=== PATIENT | male | born 1935 | race Caucasian/White ===

== ENCOUNTER → 2016-05-01 | Outpatient (CLI) | payer OTHER, BC ==
[~2016-05-01] VITALS: Ht 185.4 cm; Wt 95.0 kg
[~2016-05-01] MED LIST: ASPI1CHW12; ATOR-54 PO; BUPR150T6 PO; CARV6.252 PO; LEVO112T4 PO; LISI40TA PO; NRN/600 PO; PANT40TA PO; TAMS0.4C38 PO; VITA400C15 PO
[2016-05-01 12:07] VITALS: BP 135/82; PULSE 72; Ht 185.4 cm; Wt 95.0 kg
== END | disposition home or self-care (01) ==
LOC: C.NEUR 11:19
PROVIDERS: ATTEND Internal Medicine Pulmonary Disease
DX: G47.33 Obstructive sleep apnea (adult) (pediatric) (principal); G47.19 Other hypersomnia; G62.9 Polyneuropathy, unspecified; R41.3 Other amnesia; K21.9 Gastro-esophageal reflux disease without esophagitis; C34.90 Malignant neoplasm of unspecified part of unspecified bronchus or lung; N40.0 Benign prostatic hyperplasia without lower urinary tract symptoms; I42.9 Cardiomyopathy, unspecified; J44.9 Chronic obstructive pulmonary disease, unspecified; F32.9 Major depressive disorder, single episode, unspecified; E03.9 Hypothyroidism, unspecified; Z79.82 Long term (current) use of aspirin; Z79.899 Other long term (current) drug therapy

== ENCOUNTER → 2016-06-12 | Outpatient (CLI) | payer OTHER, BC ==
--- NOTE | 2016-06-13 05:36 | PAP/PSG TECHNICIAN REPORT ---
[facility] Senior Interaction Designer Polysomnogram Report Study name: None Report date: 06/13/2016 Study date: 06/12/2016 Referring Physician: Mike Cisse M.D. Name: EMETERIO SHANIQUE Ryan Interpreting Physician: Mike Cisse M.D. Date of : 1935 Senior Interaction Designer: BENTLEY Arzate. Sex: Male Age: 80 StudyType: PSG PAP Weight: 209 lbs Height: 80 years, Height 6' 1" Neck Circum:18inches BMI: 27.57 Medications: ASA 81mg, Atorvastatin 20mg, Carvedilol 6.25mg, Duloxetine HCl 30mg, Finasteride 5mg, Gabapentin 600mg, Levothyroxine 112mcg, Lisinopril 40mg, Pantoprazole 40mg, Tamsulosin HCl 0.4mg, Vit E 400units Patient History Study started on room air with Bipap +9/5. He has IRVING severe IRVING and was previosly on Bipap but had some difficulty with his interface and that led to his stopping the use of Bipap. [facility] is [facility] pressure settings. He has a new full face mask that he received from [employer] that he'll be using tonight. He states that he likes this mask. His neck circ=18inches. Parameters Monitored NPSG: E1-M2, E2-M1, Fp1-M2, Fp2-M1, F3-M2, F4-M2, F4-M1, C3-M2, C4-M2, C4-M1, O1-M2, O2-M2, O2-M1, T3-M2, T4-M1, P3-M2, P4-M1, CHIN1, CHIN2, HR, EKG, Legs, PFLOW, SNOR, FLOW, CFLOW, Tidal Volume, THOR, ABDO, SpO2, PLTH, CPRESS, ETCO2 Wave, ETCO2, pH Sleep Architecture Sleep Stages Time at Lights Off 9:10:32 PM STAGES Time (min.) TST (%) Time at Lights On 5:12:32 AM Wake 103.5 -- Total Recording Time (TRT) 482.50 min. N1 35.0 9 Total Sleep Period (TSP) 474.0 min. N2 246.0 65 Total Sleep Time (TST) 378.5min. N3 48.5 13 Awake Time 104.0 min. REM 49.0 13 Wake after Sleep Onset 96.5 min. Sleep Efficiency (SE) 79 % Sleep Onset Latency (MARISA) 7.0 min. Number of Stage 1 Shifts None Awakenings 25 Stage Changes 125 Number of REM periods 2 REM 49.0 13 REM Latency 411.5 min. NREM 329.5 87 Body Position Analysis Supine Right Left Side Prone Vertical Total Sleep Time (min.) 441.9 22.2 0.0 22.16 0.0 0.0 Total Sleep Time (%) 94% 6% 0% 6 0% N/A% Total Sleep Time REM (min.) 49.0 0.0 0.0 None 0.0 0.0 Total Sleep Time NREM (min.) 307.3 22.2 0.0 None 0.0 0.0 Intermittent Wake (min.) 85.6 17.9 0.0 None 0.0 0.0 Total Sleep Period (%) 92% None None None None None Arousals Myoclonus (PLM) * Events Count Index Events Count Index Spontaneous 17 3 Events Awake (PLMW) 132 76.5 Respiratory 13 3.0 Events Asleep w/ Arousal (PLMA) 18 2.9 PLM 17 3 Events Asleep w/o Arousal (PLMS) 239 37.9 Snoring 2 0 Total Asleep 257 40.7 Total 48 8 Total 389 48 Respiratory Analysis * CA OA MA CH H RERA Total Count 10 36 8 0 36 0 90 Index 1.6 5.7 1.3 0 5.7 0 14.3 Mean Duration 14.0 30.3 40.2 0.00 30.7 0.0 29.5 Longest Duration 18.9 56.3 60.2 0.00 60.2 0.0 67.8 Respiratory Event Summary Total Supine ~Supine Right Left Prone REM NREM Apneas Count 54 54 0 0 N/A N/A 4 50 Index 8.6 9 0 0.0 N/A N/A 5 9 Hypopneas (4% Desat) Count 36 36 0 0 N/A N/A 1 35 Index 5.7 6.1 0 0.0 N/A N/A 1.2 6.4 Apneas & All Hypopneas Count 90 90 0 0 N/A N/A 5 85 Index 14.3 15 0 0 N/A N/A 6.1 15.5 Respiratory Events (Quilt Stuffer+All Hyp+RERA) Count 90 90 0 0 N/A N/A 5 85 Index 14.3 15 0 0.0 N/A N/A 6.1 15.5 Respiratory Related Arousal Count 13 90 0 0 N/A N/A 0 19 Index 3.0 3 0 0 N/A N/A 0 3 Snoring Analysis Supine Right Left Prone REM NREM Total Snore duration 2.5 min Snores count 91 1 N/A N/A 1 91 92 Snore mean duration 1.6 Sec Snores index 15 3 N/A N/A 1.2 16.6 14.6 TST with snoring (%) 0.7% Desaturation Event Summary: Minimum %SpO2 Event Count Mean/Min/Max Duration(sec.) Desaturation Index % Time In Bed > 90 68 37.8 / 5.3 / 59.8 13.2 64.8 86 - 90 32 29.4 / 8.5 / 58.3 12.8 31.6 81 - 85 2 26.6 / 26.0 / 27.3 8.2 3.1 76 - 80 0 N/A 0.0 0.4 71 - 75 0 N/A 0.0 0.0 66 - 70 0 N/A 0.0 0.0 61 - 65 0 N/A 0.0 0.0 56 - 60 0 N/A 0.0 0.0 51 - 55 0 N/A 0.0 0.0 < 50 0 N/A 0.0 0.1 Total REM NREM Awake <50% 0.3 min. 0.0 min. 0.0 min. 0.3 min. 51 - 60% 0.0 min. 0.0 min. 0.0 min. 0.0 min. 61 - 70% 0.0 min. 0.0 min. 0.0 min. 0.0 min. 71 - 80% 2.0 min. 0.0 min. 1.6 min. 0.4 min. 81 - 90% 165.1 min. 0.6 min. 112.1 min. 52.3 min. 91 - 100% 308.5 min. 48.3 min. 212.8 min. 47.4 min. Average 92 94 92 91 Minimum SpO2 35 89 77 35 Desaturation Event Index 11.6 4.9 14.6 5.8 # Desat. Events below 89% 58 1 50 7 Time(%) with Saturation below 89% 17.4 0.0 14.0 3.4 Time(min.) with Saturation below 89% 82.7 0.0 66.4 16.3 Time (mins) REM (mins) NREM (mins) % of TST SpO2 Below 90% 67 3 N64 27.4 SpO2 Below 88% 30 0 0 7 Heart Rate Analysis Min (bpm) Max (bpm) Average (bpm) Awake 48 141 67 NREM 57 84 67 REM 57 73 66 Overall 57 84 66 Supplemental O2 Values Minimum O2 level: None Value Start Time End Time Senior Interaction Designer Comments Mr. Thompson slept in the supine position. No cardiac arrhythmia noted. PLM's were noted. No bruxism noted. PAP initiated at an IPAP of +9 CMH2O and an EPAP of +5 CMH2O up-titrated to a level of: IPAP +16 CMH2O, EPAP + 12 CMH20. A large Hazel full face mask by [employer] (his new mask from [employer]), was used during the first part of the study but was then switched to a large Mirage Quattro full face mask by [employer]. The Hazel was hurting his face. He did not use the restroom during the night. He stated that he slept well. The final report will be interpreted and signed by a sleep physician. The completed physician report will then be placed in the patient medical record. Therapy Event: Therapy (cm H20) 11/27 12/28 01/29 03/01 05/12 1410 15 1612 Total Time at Pressure (min.) 22.2 53.1 11.0 16.5 22.3 41.7 27.3 288.0 TST at Pressure (min.) 15.2 51.1 10.0 15.0 21.3 41.2 23.8 201.0 # Periods 1 1 1 1 1 1 1 1 Sleep Onset (min.) 7.0 0.0 0.0 0.0 0.0 0.0 0.0 0.0 REM Onset (min.) N/A N/A N/A N/A N/A N/A N/A 224.5 Sleep Efficiency % 68 96 90 90 95 98 87 69 Wakefulness (%) 31.5 3.8 9.1 9.1 4.5 1.2 12.8 30.2 Wakefulness (min.) 7.0 2.0 1.0 1.5 1.0 0.5 3.5 87.0 NREM 1 (%) 6.8 6.6 4.6 15.2 9.1 7.1 20.1 5.7 NREM 1 (min.) 1.5 3.5 0.5 2.5 2.0 3.0 5.5 16.5 NREM 2 (%) 61.7 41.6 86.3 75.7 86.4 54.5 67.0 44.4 NREM 2 (min.) 13.7 22.1 9.5 12.5 19.2 22.7 18.3 128.0 NREM 3 (%) 0.0 48.0 0.0 0.0 0.0 37.2 0.0 2.6 NREM 3 (min.) 0.0 25.5 0.0 0.0 0.0 15.5 0.0 7.5 REM (%) 0.0 0.0 0.0 0.0 0.0 0.0 0.0 17.0 REM (min.) 0.0 0.0 0.0 0.0 0.0 0.0 0.0 49.0 # Arousals 3 8 0 4 6 6 6 15 Arousal Index 11.8 9.4 0.0 16.0 16.9 8.7 15.1 4.5 # Snore 19 25 7 16 10 4 3 8 Snore Index 75.0 29.3 42.2 64.0 28.2 5.8 7.6 2.4 AHI 59.2 12.9 42.2 48.0 45.2 10.2 30.3 3.0 AHI Supine 59.2 12.9 42.2 48.0 45.2 10.2 30.3 3.4 AHI Non-Supine N/A N/A N/A N/A N/A N/A N/A 0.0 NREM AHI 59.2 12.9 42.2 48.0 45.2 10.2 30.3 2.0 REM AHI N/A N/A N/A N/A N/A N/A N/A 6.1 RDI 59.2 12.9 42.2 48.0 45.2 10.2 30.3 3.0 # Obstructive 4 6 4 4 7 3 8 0 # Central Ap 5 0 0 0 0 0 0 5 # Mixed 0 1 1 1 4 0 1 0 # Hypopneas 6 4 2 7 5 4 3 5 RERAS 0 0 0 0 0 0 0 0 Total Respiratory Events 15 11 7 12 16 7 12 10 Time Below SpO2 89.00% (min.) 12.2 20.1 1.9 2.1 2.2 0.0 0.8 27.0 Mean NREM SpO2 (%) 86 89 92 93 93 94 93 92 Mean REM SpO2 (%) N/A N/A N/A N/A N/A N/A N/A 94 Mean Sleep SpO2 (%) 86 89 92 93 93 94 93 93 Min NREM SpO2 (%) 77 77 78 78 81 89 84 81 Min REM SpO2 (%) N/A N/A N/A N/A N/A N/A N/A 89 Position Supine (min.) 15.2 51.1 10.0 15.0 21.3 41.2 23.8 178.8 Position Non-supine (min.) 0.0 0.0 0.0 0.0 0.0 0.0 0.0 22.2 LM Index Sleep 7.9 28.2 138.7 128.0 149.6 110.6 42.9 9.0 LM Index NREM 7.9 28.2 138.7 128.0 149.6 110.6 42.9 11.5 LM Index REM N/A N/A N/A N/A N/A N/A N/A 1.2 Mean Heart Rate (bpm) 72 73 70 70 68 65 66 64 Min Heart Rate (bpm) 67 67 64 64 62 60 61 57
--- NOTE | 2016-06-14 17:14 | POLYSOMNOGRAPH REPORT ---
CLINICAL DATA: An 80-year-old male with BMI of 27.57, returned for a BiPAP titration study. He has severe sleep apnea and was previously on BiPAP through his DME provider, [facility]. He had difficulty with his interface and stopped using his BiPAP. He has been having some cognitive difficulty and sleep issues and would like to be started back on BiPAP. SLEEP ARCHITECTURE: Total sleep period was 474 minutes. Total sleep time was 378.5 minutes divided between 329.5 minutes of non-REM sleep and 49 minutes of REM sleep. Sleep onset latency was 7 minutes. REM latency was delayed at 411.5 minutes. Sleep efficiency was 79%. Wake after sleep onset was 96.5 minutes. Sleep consisted of stage N1 9%, N2 65%, N3 13%, and REM 13%. AROUSAL DATA: Forty eight arousals were recorded for an index of 8 per hour. PERIODIC LIMB MOVEMENTS DATA: Moderately elevated limb movements of sleep were noted. There were 257 limb movements during sleep noted for an index of 40.7 per hour with arousal index of 2.9 per hour. RESPIRATORY DATA: The AHI was 14.3. There were 10 central, 36 obstructive, and 8 mixed apneic episodes. The longest duration of apnea was 60.2 seconds. There were 36 hypopneic episodes. The mean duration of hypopnea was 30.7 seconds. OXIMETRY DATA: Nocturnal hypoxemia was seen. Oxygen andrea was 77% during non-REM sleep. Mean saturation was 92%. Time below 88% was 30 minutes. ELECTROCARDIOGRAM: Heart ranged from 57-84 beats per minute. No arrhythmias were noted. PULP DRIER'S COMMENTS: The patient slept supine. BiPAP was started at a pressure of 9/5 and was titrated up to his optimal level of 16/12 using a large Hazel full facemask by [employer] initially, but then switched to a large Mirage Quattro full facemask by [employer]. At this final pressure setting, the patient slept for 201 minutes with an AHI of 3. IMPRESSION: Severe sleep apnea/hypopnea corrected with BiPAP, inspiratory pressure 16 and expiratory pressure 12 using a large Quattro full facemask by [employer]. RECOMMENDATIONS: The patient will be seen back in the clinic to restart BiPAP therapy at the above-noted settings. [facility]
== END | disposition home or self-care (01) ==
LOC: C.NEUR 20:00
PROVIDERS: ATTEND Internal Medicine Pulmonary Disease
DX: G47.19 Other hypersomnia (principal); R41.3 Other amnesia; G47.33 Obstructive sleep apnea (adult) (pediatric); G62.9 Polyneuropathy, unspecified

== ENCOUNTER → 2016-06-19 | Outpatient (CLI) | payer OTHER, BC ==
[~2016-06-19] VITALS: Ht 185.4 cm; Wt 94.0 kg
[2016-06-19 14:24] VITALS: BP 92/60; PULSE 88; Ht 185.4 cm; Wt 94.0 kg
== END | disposition home or self-care (01) ==
LOC: C.NEUR 12:48
PROVIDERS: ATTEND Internal Medicine Pulmonary Disease
DX: G47.33 Obstructive sleep apnea (adult) (pediatric) (principal); G62.9 Polyneuropathy, unspecified; R19.7 Diarrhea, unspecified

== ENCOUNTER → 2016-07-12 | Outpatient (CLI) | payer OTHER, BC ==
[~2016-07-12] MED LIST changes: -ASPI1CHW12; +ASPI1CHW12 PO; +VITA1CRE; +VITACAP37 PO
== END | disposition home or self-care (01) ==
LOC: C.LABSPEC 16:57
PROVIDERS: ATTEND Nurse Practitioner Adult Health
DX: R35.0 Frequency of micturition (principal)

== ENCOUNTER → 2016-09-04 | Outpatient (CLI) | payer OTHER, BC ==
[2016-09-04 10:25] LABS: BASO % 1.6 %; EOS % 4.1 %; HEMATOCRIT 40.8 % (42-52); IG% 0.2 %; LYMPH % 13.1 %; MEAN CELL VOLUME 96.5 fL (80-100); MEAN CORPUSCULAR HEMOGLOBIN 31.9 pg (25-34); MEAN CORPUSCULAR HGB CONC 33.1 g/dl (32-36); MEAN PLATELET VOLUME 12.2 fL (7.4-10.4); MONO % 11.5 %; NEUT % 69.5 %; PLATELET COUNT 142 K/uL (130-400); RED BLOOD COUNT 4.23 M/uL (4.7-6.1); WHITE BLOOD COUNT 5.56 K/uL (4.8-10.8)
[2016-09-04 10:26] LABS: BASO ABS # 0.09 K/uL (0-0.2); COMPLETE YES; LYMPH ABS # 0.73 K/uL (1.2-3.4)
[2016-09-04 11:05] LABS: ALT/SGPT 16 U/L (12-78); AST/SGOT 10 U/L (15-37); BLOOD UREA NITROGEN 18 mg/dl (7-18); BUN/CREATININE RATIO 16.4 (10-20); CALCIUM 8.6 mg/dl (8.5-10.1); CARBON DIOXIDE 30 mmol/L (21-32); CHLORIDE 105 mmol/L (98-107); GLUCOSE 105 mg/dl (70-99); SODIUM 141 mmol/L (136-145)
[2016-09-04 11:08] LABS: ALB/GLOB RATIO 1.1 (0.9-2); ALKALINE PHOSPHATASE 90 U/L (45-117)
[2016-09-04 12:42] LABS: URINE APPEARANCE CLEAR (CLEAR); URINE BILIRUBIN NEG (NEG); URINE COLOR YELLOW; URINE EPITHELIAL CELL AUTO 0-5 /lpf (0-5); URINE NITRITE NEG (NEG); URINE SPECIFIC GRAVITY 1.015 (1.000-1.030); UROBILINOGEN NEG (NEG)
[2016-09-04 12:51] LABS: MANUAL MICROSCOPIC REQUIRED? NO; REVIEW REQ? NO
== END | disposition home or self-care (01) ==
LOC: C.LAB1850 09:19
PROVIDERS: ATTEND Physician Assistant Medical
DX: R10.32 Left lower quadrant pain (principal)

== ENCOUNTER → 2016-09-07 | Outpatient (CLI) | payer OTHER, BC | END | disposition home or self-care (01) | LOC: C.LAB1850 10:34 | PROVIDERS: ATTEND Physician Assistant Medical | DX: E03.9 Hypothyroidism, unspecified (principal); R63.4 Abnormal weight loss ==

== ENCOUNTER → 2016-09-14 | Outpatient (CLI) | payer OTHER, BC ==
[2016-09-15 10:43] LABS: URINE APPEARANCE CLEAR (CLEAR); URINE BILIRUBIN NEG (NEG); URINE COLOR YELLOW; URINE EPITHELIAL CELL AUTO 0-5 /lpf (0-5); URINE NITRITE NEG (NEG); URINE SPECIFIC GRAVITY > 1.045 (1.000-1.030); UROBILINOGEN NEG (NEG)
[2016-09-15 10:46] LABS: MANUAL MICROSCOPIC REQUIRED? NO; REVIEW REQ? NO
== END | disposition home or self-care (01) ==
LOC: C.LAB 09:48
PROVIDERS: ATTEND Physician Assistant Medical
DX: R32 Unspecified urinary incontinence (principal)

== ENCOUNTER → 2016-09-14 | Outpatient (CLI) | payer OTHER, BC ==
[~2016-09-14] MED LIST changes: +OPTIRAY 320 IV PRN
--- NOTE | 2016-09-14 16:52 | DIAGNOSTIC IMAGING REPORT ---
CT brain HEAD COMBO CLINICAL HISTORY: R29.6 mental status change TECHNIQUE: Transaxial acquisition pre and postcontrast administration. COMPARISON STUDY: 09/27/2013 FINDINGS: Atrophy. Chronic small vessel change. No evidence for abnormal postcontrast enhancement. IMPRESSION: Atrophy. Chronic small vessel change. No acute process. Electronically signed by: Darrius Brown M.D. 09/14/2016 4:50 PM Dictated Date/Time: 09/14/2016 4:49 PM
== END | disposition home or self-care (01) ==
LOC: C.CTS 16:26
PROVIDERS: ATTEND Physician Assistant Medical
DX: R29.6 Repeated falls (principal); R32 Unspecified urinary incontinence

== ENCOUNTER 2017-01-18 02:21 | Emergency (ER) | payer OTHER, BC ==
[~2017-01-18] VITALS: Ht 185.4 cm; Wt 90.6 kg
[~2017-01-18 02:21] MED LIST changes: -OPTIRAY 320 IV PRN; -VITA1CRE; -VITACAP37 PO
[2017-01-18 02:26] VITALS: TEMP 36.6; Ht 185.4 cm; Wt 90.6 kg
[2017-01-18] MEDS ORDERED: SODIUM CHLORIDE 0.9% 500ML 500 ML IV STA (02:35)
[2017-01-18] MEDS ORDERED: FENTANYL CITRATE INJ 50 MCG/1 ML 2 ML VIAL IV STA (02:37)
[2017-01-18] MEDS ORDERED: OPTIRAY 320 IV PRN (02:45)
[2017-01-18 02:50] LABS: BASO % 0.7 %; BASO ABS # 0.05 K/uL (0-0.2); EOS % 3.8 %; HEMATOCRIT 37.6 % (42-52); IG% 0.1 %; LYMPH % 17.2 %; LYMPH ABS # 1.22 K/uL (1.2-3.4); MEAN CELL VOLUME 94.7 fL (80-100); MEAN CORPUSCULAR HEMOGLOBIN 31.7 pg (25-34); MEAN CORPUSCULAR HGB CONC 33.5 g/dl (32-36); MEAN PLATELET VOLUME 12.1 fL (7.4-10.4); MONO % 10.5 %; NEUT % 67.7 %; PLATELET COUNT 156 K/uL (130-400); RED BLOOD COUNT 3.97 M/uL (4.7-6.1); WHITE BLOOD COUNT 7.11 K/uL (4.8-10.8)
--- NOTE | 2017-01-18 02:50 | EMERGENCY ROOM VISIT NOTE ---
History Report prepared by Spring: Fay Meneses Under the Supervision of: Dr. Mao Long M.D. First contact with patient: 02:27 Chief Complaint: FALL Stated Complaint: FALL/ABDOMINAL PAIN History of Present Illness The patient is a 81 year old male who presents to the Emergency Room with complaints of worsening right abdominal pain that started a few hours ago. The patient rates his pain a 5/10 in severity. The patient reports that he has neuropathy in both of his feet. When he does not watch where he is going, he trips over things easily due to the neuropathy. The patient notes that he fell 3 days ago but just started experiencing pain today. He states that a sharp pain just started a few hours ago. He notes that falling is not unusual for him. He states that his right abdomen hurts when he takes a deep breath in. He reports he has not taken any pain medications to reduce the pain. The patient has a cough. He denies having neck pain, head pain, bowel changes, or shortness of breath. Source of History: patient Onset: a few hours ago Position: abdomen (whole right side) Symptom Intensity: 5/10 Quality: sharp Timing: worsening Associated Symptoms: + cough, No neck pain, No SOB, No back pain Note: The patient denies having changes in his bowel movements. Review of Systems See HPI for pertinent positives & negatives. A total of 10 systems reviewed and were otherwise negative. Past Medical & Surgical Medical Problems: (1) Benign prostatic hypertrophy (2) Hyperthyroidism (3) Lung cancer with right lobectomy (4) Near syncope (5) Sleep apnea Surgical Problems: (1) Colon resection for colon cancer Family History Cancer MOTHER Social History Smoking Status: Former Smoker Drug Use: none Marital Status: Housing Status: lives with family Occupation Status: retired Current/Historical Medications Scheduled Aspirin (Aspirin 81 Low Dose), 81 MG PO DAILY Atorvastatin (Lipitor), 20 MG PO QAM Bupropion HCl (Bupropion HCl Xl), 150 MG PO DAILY Carvedilol (Coreg), 1 TAB PO BID Gabapentin (Neurontin), 600 MG PO BID Levothyroxine Sodium (Levothyroxine Sodium), 112 MCG PO QAM Lisinopril (Zestril), 40 MG PO QAM Pantoprazole (Protonix), 40 MG PO QAM Tamsulosin Hcl (Flomax), 0.4 MG PO QAM Vitamin E (E-400), 400 UNIT PO DAILY Allergies Coded Allergies: Lactose (Verified Adverse Reaction, Mild, LACTOSE INTOLERANCE, 01/18/17) Physical Exam Vital Signs Date Time Temp Pulse Resp B/P (MAP) Pulse Ox O2 Delivery O2 Flow Rate FiO2 01/18/17 06:42 64 18 143/84 99 01/18/17 05:51 67 18 146/85 100 Room Air 01/18/17 05:26 71 99 01/18/17 04:26 68 99 01/18/17 04:21 71 99 01/18/17 03:21 72 96 01/18/17 03:12 74 18 121/80 97 Room Air 01/18/17 03:11 129/80 01/18/17 03:10 121/85 01/18/17 02:36 74 01/18/17 02:27 129/84 01/18/17 02:26 36.6 88 18 129/84 98 Room Air Physical Exam GENERAL: Patient is very uncomfortable and in moderate distress. HEENT: No acute trauma, normocephalic atraumatic, mucous membranes moist, no nasal congestion, no scleral icterus. NECK: No stridor, no adenopathy, no meningismus, trachea is midline. LUNGS: No dyspnea. Clear to auscultation and equal bilaterally. No wheeze, no rhonchi. HEART: Regular rate and rhythm. No murmurs, rubs, gallops appreciated. ABDOMEN: Extreme tenderness to palpation to right flank and right upper quadrant. BACK: No midline tenderness, no CVA tenderness EXTREMITIES: Normal motion all extremities, no cyanosis, no edema. NEUROLOGIC: Alert and oriented, no acute motor or sensory deficits, no focal weakness, cranial nerves grossly intact. SKIN: Extensive bruising of right posterior chest extending to right flank and pelvis. Medical Decision & Procedures ER Provider Diagnostic Interpretation: CT ABDOMEN & PELVIS With Contrast: Comparison: CT dated 09/22/2015. No evidence of significant traumatic injury in abdomen or pelvis. No evidence of significant visceral injury, free fluid, free air or acute fracture. Mild nonspecific perinephric stranding, similar to compared to prior CT. Findings may be related to senescent changes. Incidental findings: Status post cholecystectomy. Stable atherosclerosis and ectasia of the abdominal aorta. Osseous degenerative changes. CT CHEST With Contrast: Chronic deformities of several right-sided ribs, stable compared to prior CT dated 08/03/2008. No evidence of acute fracture. Mild right chest wall soft tissue swelling. Bilateral pulmonary granulomas consistent with prior granulomatous process. No evidence of central pulmonary embolism, thoracic aortic aneurysm or dissection. Scattered atherosclerotic vascular disease. Right posterior pleural thickening, stable compared to prior CT. No significant pleural effusion or pneumothorax. Mild elevation of the right hemidiaphragm. Laboratory Results 01/18/17 02:40 Red Blood Count 3.97, Mean Corpuscular Volume 94.7, Mean Corpuscular Hemoglobin 31.7, Mean Corpuscular Hemoglobin Concent 33.5, Mean Platelet Volume 12.1, Neutrophils (%) (Auto) 67.7, Lymphocytes (%) (Auto) 17.2, Monocytes (%) (Auto) 10.5, Eosinophils (%) (Auto) 3.8, Basophils (%) (Auto) 0.7, Neutrophils # (Auto ) 4.81, Lymphocytes # (Auto) 1.22, Monocytes # (Auto) 0.75, Eosinophils # (Auto ) 0.27, Basophils # (Auto) 0.05 01/18/17 02:40 Test 01/18/17 02:40 01/18/17 02:47 01/18/17 03:23 01/18/17 04:40 White Blood Count 7.11 K/uL (4.8-10.8) Red Blood Count 3.97 M/uL (4.7-6.1) Hemoglobin 12.6 g/dL (14.0-18.0) Hematocrit 37.6 % (42-52) Mean Corpuscular Volume 94.7 fL (80-100) Mean Corpuscular Hemoglobin 31.7 pg (25-34) Mean Corpuscular Hemoglobin Concent 33.5 g/dl (32-36) Platelet Count 156 K/uL (130-400) Mean Platelet Volume 12.1 fL (7.4-10.4) Neutrophils (%) (Auto) 67.7 % Lymphocytes (%) (Auto) 17.2 % Monocytes (%) (Auto) 10.5 % Eosinophils (%) (Auto) 3.8 % Basophils (%) (Auto) 0.7 % Neutrophils # (Auto) 4.81 K/uL (1.4-6.5) Lymphocytes # (Auto) 1.22 K/uL (1.2-3.4) Monocytes # (Auto) 0.75 K/uL (0.11-0.59) Eosinophils # (Auto) 0.27 K/uL (0-0.5) Basophils # (Auto) 0.05 K/uL (0-0.2) RDW Standard Deviation 51.2 fL (36.4-46.3) RDW Coefficient of Variation 14.7 % (11.5-14.5) Immature Granulocyte % (Auto) 0.1 % Immature Granulocyte # (Auto) 0.01 K/uL (0.00-0.02) Red Blood Cell Morphology Unremarkable Est Creatinine Clear Calc Drug Dose 58.4 ml/min Estimated GFR () 71.0 Estimated GFR (Non- 61.3 BUN/Creatinine Ratio 15.7 (10-20) Calcium Level 8.5 mg/dl (8.5-10.1) Total Bilirubin 0.7 mg/dl (0.2-1) Direct Bilirubin mg/dl (0-0.2) Aspartate Amino Transf (AST/SGOT) 11 U/L (15-37) Alanine Aminotransferase (ALT/SGPT) 15 U/L (12-78) Alkaline Phosphatase 91 U/L (45-117) Total Protein 6.3 gm/dl (6.4-8.2) Albumin 3.1 gm/dl (3.4-5.0) Lipase 145 U/L (73-393) Chemistry Specimen Hemolysis Bedside Hemoglobin 12.9 g/dl (14.0-18.0) Bedside Hematocrit 38 % (42-52) Bedside Sodium 138 mEq/L (135-144) Bedside Potassium 3.9 mEq/L (3.3-5.0) Bedside Chloride 99 mEq/L (101-112) Bedside Total CO2 28 mEq/l (24-31) Anion Gap 16.0 mmol/L (16-25) Bedside Blood Urea Nitrogen 19 mg/dl (7-18) Bedside Creatinine 1.1 mg/dl (0.6-1.3) Bedside Glucose (other) 105 mg/dl (70-99) Bedside Ionized Calcium (Clemente) 1.20 mmol/l (1.12-1.32) Prothrombin Time 12.9 SECONDS (9.0-12.0) Prothromb Time International Ratio 1.2 (0.9-1.1) Activated Partial Thromboplast Time 33.1 SECONDS (21.0-31.0) Partial Thromboplastin Ratio 1.3 Urine Color YELLOW Urine Appearance CLEAR (CLEAR) Urine pH 5.0 (4.5-7.5) Urine Specific [place] 1.027 (1.000-1.030) Urine Protein NEG (NEG) Urine Glucose (UA) NEG (NEG) Urine Ketones NEG (NEG) Urine Occult Blood NEG (NEG) Urine Nitrite NEG (NEG) Urine Bilirubin NEG (NEG) Urine Urobilinogen NEG (NEG) Urine Leukocyte Esterase NEG (NEG) Urine WBC (Auto) 0 /hpf (0-5) Urine RBC (Auto) 0-4 /hpf (0-4) Urine Hyaline Casts (Auto) 0 /lpf (0-5) Urine Epithelial Cells (Auto) 0-5 /lpf (0-5) Urine Bacteria (Auto) NEG (NEG) Laboratory results as reviewed by me. Medications Administered Medications (Trade) Dose Ordered Sig/Thea Route Start Time Stop Time Status Last Admin Dose Admin Sodium Chloride 500 ml @ 999 mls/hr Q31M STAT IV 01/18/17 02:35 01/18/17 03:05 DC 01/18/17 02:50 999 MLS/HR Fentanyl Citrate (Fentanyl Inj) 50 mcg NOW STAT IV 01/18/17 02:37 01/18/17 02:38 DC 01/18/17 02:50 50 MCG Oxycodone HCl (Roxicodone Immediate Rel 5MG Home Pack) 1 homepack UD ONCE PO 01/18/17 05:00 01/18/17 05:01 DC 01/18/17 06:39 1 HOMEPACK ED Course 0227: The patient was evaluated in room B12. A complete history and physical exam was performed. 0235: Sodium Chloride 500 ml @ 999 mls/hr IV. 0237: Fentanyl Inj 50 mcg IV. 0040: I reassessed the patient. I offered evaluation by a hospitalist and rehab due to instability. However, he prefers to go home. The patient and his request to stay until morning when the sun rises. The patient will be discharged in the morning. 0500: Oxycodone HCI 1 homepack PO. Medical Decision Differential: Intracranial Injury, Cervical Injury, Intrathoracic/Abdominal Injury, Neurologic Injuries, Fractures/Dislocations, Lacerations, Tetanus Status , amongst other pathologies entertained. 81 yr old male arrives for evaluation of right flank pain s/p fall 3 days ago. Given extent of bruising right flank felt imaging required revealing no acute findings. I feel he likely does have rib fracture given underlying bruising and area of old fracture even though not evident on CT. Labs looking OK other than just mild INR elevation of uncertain etiology. Feeling much better even several hours after fentanyl. He is already at baseline unsteady on feet and with need for pain control I am a bit concerned he may be at risk of failing even more. I have offered to find him placement/rehab/inpatient/etc which he declines. He and understand risks if he falls again and we event discussed fact he should be using walker if he is getting around house and that he should not be doing stairs nor any dangerous activities. They both feel comfortable going home and understand risks. I have heavily stressed importance of follow up with her PCP. We discussed symptoms requiring emergent return, and they are aware they can return at any time if they feel something is not correct or other concerns. Head Trauma GCS Score: 15 Medication Reconcilliation Current Medication List: was personally reviewed by me Blood Pressure Screening Patient's blood pressure: Normal blood pressure Impression Primary Impression: Contusion of rib on right side Additional Impressions: Traumatic ecchymosis of flank Fall Scribe Attestation The scribe's documentation has been prepared under my direction and personally reviewed by me in its entirety. I confirm that the note above accurately reflects all work, treatment, procedures, and medical decision making performed by me. Departure Information Dispostion Home / Self-Care Referrals Mike Cisse M.D. (PCP) Patient Instructions ED Contusion Rib, [facility] Additional Instructions Use Tylenol as needed for pain. Only use the Oxy IR pain medication if Tylenol is not helping pain. You have received a narcotic pain medication. You can take half a tablet to a full tablet every 6 hours if absolutely necessary. These medications may cause drowsiness and should not be used with other sedative medications. Do not drive , drink alcohol, perform dangerous activities, nor make important decisions after taking these medications. retirement use or inappropriate use may lead to addiction. If you take this medication you should avoid stairs and use a walker , especially given your chronic problems with walking. You should consider returning or calling 911 or talking to your primary care provider if you feel you are unsafe at home or are not managing well at home. Please follow up with your primary care provider in the next few days to discuss how you are doing. Problem Qualifiers
[2017-01-18 03:03] LABS: ISTAT CREATININE 1.1 mg/dl (0.6-1.3); ISTAT HEMOGLOBIN 12.9 g/dl (14.0-18.0); ISTAT IONIZED CALCIUM 1.2 mmol/l (1.12-1.32)
[2017-01-18 03:31] LABS: ALKALINE PHOSPHATASE 91 U/L (45-117); ALT/SGPT 15 U/L (12-78); AST/SGOT 11 U/L (15-37); BLOOD UREA NITROGEN 18 mg/dl (7-18); BUN/CREATININE RATIO 15.7 (10-20); CALCIUM 8.5 mg/dl (8.5-10.1); CARBON DIOXIDE 31 mmol/L (21-32); CHLORIDE 104 mmol/L (98-107); CREATININE 1.12 mg/dl (0.60-1.40); GLUCOSE 103 mg/dl (70-99); POTASSIUM 4.1 mmol/L (3.5-5.1); SODIUM 139 mmol/L (136-145)
[2017-01-18 03:32] LABS: COMPLETE YES
[2017-01-18 03:51] LABS: INR 1.2 (0.9-1.1); PARTIAL THROMBOPLASTIN RATIO 1.3; PROTHROMBIN TIME (PATIENT) 12.9 SECONDS (9.0-12.0)
[2017-01-18] MEDS ORDERED: VITA1CRE (04:27)
[2017-01-18] MEDS ORDERED: VITACAP37 PO (04:27)
[2017-01-18] MEDS ORDERED: OXYCODONE IR HOME PACK PO ONE (05:00)
[2017-01-18 05:12] LABS: URINE APPEARANCE CLEAR (CLEAR); URINE BILIRUBIN NEG (NEG); URINE COLOR YELLOW; URINE EPITHELIAL CELL AUTO 0-5 /lpf (0-5); URINE NITRITE NEG (NEG); URINE SPECIFIC GRAVITY 1.027 (1.000-1.030); UROBILINOGEN NEG (NEG); ZZUR CULT IF INDIC CLEAN CATCH NO
[2017-01-18 05:20] LABS: MANUAL MICROSCOPIC REQUIRED? NO; REVIEW REQ? NO
[2017-01-18 06:42] VITALS: BP 143/84; PULSE 64; O2SAT 99
--- NOTE | 2017-01-18 07:44 | DIAGNOSTIC IMAGING REPORT ---
CHEST, ABDOMEN, PELVIS CT WITH CONTRAST CT DOSE: 780.42 mGy.cm HISTORY: trauma, right chest with bruising. Right-sided abdominal pain. TECHNIQUE: Multiaxial CT images of the chest , abdomen, and pelvis were performed following the intravenous administration of contrast. A dose lowering technique was utilized adhering to the principles of ALARA. COMPARISON: Chest CT 08/03/2008. Abdomen and pelvis CT 09/22/2015. FINDINGS: Multiple old, healed right-sided rib fractures. No pleural effusions. No pneumothorax. Multiple punctate scattered calcified granuloma seen throughout the lungs. Mild emphysema. Bibasilar densities favor subsegmental atelectasis. Prior right upper lobectomy. Mild right posterior pleural thickening, unchanged. Mild right chest wall subcutaneous edema. Nondisplaced right posterior lateral ninth rib fracture. The mediastinal vascular structures are within normal limits. No pericardial effusion. Calcified mediastinal lymph nodes are noted. Right lateral 10th rib fracture. Cholecystectomy. The liver, adrenal glands, and pancreas are unremarkable. Bilateral perinephric edema, unchanged. This is likely chronic. No hydronephrosis. Multiple calcified granulomas within the spleen. The abdominal aorta measures up to 3.1 cm in diameter. Tiny fat-containing midline ventral hernias and a tiny fat-containing umbilical hernia. The bladder remains distended. Small fat-containing bilateral inguinal hernias. No retroperitoneal lymphadenopathy. Colonic diverticulosis. No bowel wall thickening or obstruction. Moderate stool seen throughout the colon. Normal appendix. IMPRESSION: 1. Right ninth and 10th nondisplaced acute rib fractures. 2. Otherwise, no acute process identified within the chest, abdomen, pelvis. 3. Additional chronic and postoperative changes as described above. Electronically signed by: Pillo Henley M.D. 01/18/2017 7:43 AM Dictated Date/Time: 01/18/2017 7:29 AM
== END 2017-01-18 06:43 | disposition home or self-care (01) ==
LOC: EDBD 02:21 → C.EDB 02:23
DX: S20.211A Contusion of right front wall of thorax, initial encounter (principal); S30.1XXA Contusion of abdominal wall, initial encounter; W19.XXXA Unspecified fall, initial encounter; E05.90 Thyrotoxicosis, unspecified without thyrotoxic crisis or storm; G47.30 Sleep apnea, unspecified; Z85.118 Personal history of other malignant neoplasm of bronchus and lung; Z90.2 Acquired absence of lung [part of]; Z85.038 Personal history of other malignant neoplasm of large intestine; Z87.891 Personal history of nicotine dependence; Z79.82 Long term (current) use of aspirin; Z79.899 Other long term (current) drug therapy; Z80.9 Family history of malignant neoplasm, unspecified; Z91.011 Allergy to milk products

== ENCOUNTER 2017-04-23 01:24 | Emergency (ER) | payer OTHER, BC ==
[~2017-04-23] VITALS: Ht 185.4 cm; Wt 92.3 kg
[~2017-04-23 01:24] MED LIST changes: -VITA400C15 PO; +VITACAP37 PO
[2017-04-23 01:34] VITALS: TEMP 36.7; Ht 185.4 cm; Wt 92.3 kg
--- NOTE | 2017-04-23 02:21 | EMERGENCY ROOM VISIT NOTE ---
History Report prepared by Spring: Kevin Agustin Under the Supervision of: Dr. Mike Green M.D. First contact with patient: 01:53 Chief Complaint: PENIS PAIN Stated Complaint: BLEEDING OUT OF PENIS- STARTED BROWN-BRIGHT RED History of Present Illness The patient is a 81 year old male who presents to the Emergency Room with complaints of constant bleeding from his urethra that began this afternoon. The patient states that the bleeding started out as a brown color and has become red and consistent within the last hour. The patient is accompanied by his who states that the patient's last episode had clotting in it. He states that he has recently not been able to void, which is not normal for him. He states that when he tried to urinate tonight, blood started to come out of his urethra. The patient states that he had a scope about four weeks ago due to his history of bladder cancer. He denies recent trauma, LOC, headache, fevers, chills, diaphoresis, visual changes, neck pain, chest pain, breathing difficulties, nausea, vomiting, abdominal pain, back pain, melena, hematochezia , numbness, weakness, lymphadenopathy, rash, or other complaints. The patient denies a history of bladder, urethra, or prostate infections although his thinks that he has had a bladder infection. Source of History: patient Onset: this afternoon Position: other (global) Quality: other (brown, red, and clotting) Timing: constant Associated Symptoms: + urinary symptoms Review of Systems See HPI for pertinent positives and negatives. A total of ten systems were reviewed and were otherwise negative. Past Medical & Surgical Medical Problems: (1) Benign prostatic hypertrophy (2) Hyperthyroidism (3) Lung cancer with right lobectomy (4) Near syncope (5) Sleep apnea Surgical Problems: (1) Colon resection for colon cancer Family History Cancer MOTHER Social History Smoking Status: Former Smoker Drug Use: none Marital Status: Housing Status: lives with family Occupation Status: retired Current/Historical Medications Scheduled Aspirin (Aspirin 81 Low Dose), 81 MG PO DAILY Atorvastatin (Lipitor), 20 MG PO QAM Bupropion HCl (Bupropion HCl Xl), 150 MG PO DAILY Carvedilol (Coreg), 1 TAB PO BID Cholecalciferol (Vitamin D3), 1 TAB PO DAILY Donepezil Hydrochloride (Donepezil Hcl), 5 MG PO DAILY Fesoterodine Fumarate (Toviaz), 4 MG PO DAILY Finasteride (Proscar), 5 MG PO DAILY Gabapentin (Neurontin), 600 MG PO BID Levothyroxine Sodium (Levothyroxine Sodium), 112 MCG PO QAM Lisinopril (Zestril), 40 MG PO QAM Pantoprazole (Protonix), 40 MG PO QAM Tamsulosin Hcl (Flomax), 0.4 MG PO QAM Vitamin E (E-400), 400 UNIT PO DAILY Scheduled PRN Phenazopyridine HCl (Pyridium), 200 MG PO TID PRN for Frequency/Burning w/ Urination Allergies Coded Allergies: Lactose (Verified Adverse Reaction, Mild, LACTOSE INTOLERANCE, 04/23/17) Physical Exam Vital Signs Date Time Temp Pulse Resp B/P (MAP) Pulse Ox O2 Delivery O2 Flow Rate FiO2 04/23/17 01:34 36.7 85 16 143/91 95 Room Air Physical Exam GENERAL: Awake, alert, well-appearing, in no distress HENT: Normocephalic, atraumatic. Oropharynx unremarkable. EYES: Normal conjunctiva. Sclera non-icteric. NECK: Supple. No nuchal rigidity. FROM. No JVD. RESPIRATORY: Clear to auscultation. CARDIAC: Regular rate, normal rhythm. Extremities warm and well perfused. Pulses equal. ABDOMEN: Soft, non-distended. Mild suprapubic discomfort. No rebound or guarding. No masses. RECTAL: Deferred. MUSCULOSKELETAL: Chest examination reveals no tenderness. The back is symmetrical on inspection without obvious abnormality. There is no CVA tenderness to palpation. No joint edema. LOWER EXTREMITIES: Calves are equal size bilaterally and non-tender. No edema. No discoloration. NEURO: Normal sensorium. No sensory or motor deficits noted. SKIN: No rash or jaundice noted. : Normal penis. No active bleeding. Medical Decision & Procedures Laboratory Results 04/23/17 02:15 Red Blood Count 4.22, Mean Corpuscular Volume 95.7, Mean Corpuscular Hemoglobin 32.0, Mean Corpuscular Hemoglobin Concent 33.4, Mean Platelet Volume 11.6, Neutrophils (%) (Auto) 72.1, Lymphocytes (%) (Auto) 13.2, Monocytes (%) (Auto) 11.3, Eosinophils (%) (Auto) 2.6, Basophils (%) (Auto) 0.5, Neutrophils # (Auto ) 5.71, Lymphocytes # (Auto) 1.05, Monocytes # (Auto) 0.90, Eosinophils # (Auto ) 0.21, Basophils # (Auto) 0.04 04/23/17 02:15 Test 04/23/17 02:15 White Blood Count 7.93 K/uL (4.8-10.8) Red Blood Count 4.22 M/uL (4.7-6.1) Hemoglobin 13.5 g/dL (14.0-18.0) Hematocrit 40.4 % (42-52) Mean Corpuscular Volume 95.7 fL (80-100) Mean Corpuscular Hemoglobin 32.0 pg (25-34) Mean Corpuscular Hemoglobin Concent 33.4 g/dl (32-36) Platelet Count 133 K/uL (130-400) Mean Platelet Volume 11.6 fL (7.4-10.4) Neutrophils (%) (Auto) 72.1 % Lymphocytes (%) (Auto) 13.2 % Monocytes (%) (Auto) 11.3 % Eosinophils (%) (Auto) 2.6 % Basophils (%) (Auto) 0.5 % Neutrophils # (Auto) 5.71 K/uL (1.4-6.5) Lymphocytes # (Auto) 1.05 K/uL (1.2-3.4) Monocytes # (Auto) 0.90 K/uL (0.11-0.59) Eosinophils # (Auto) 0.21 K/uL (0-0.5) Basophils # (Auto) 0.04 K/uL (0-0.2) RDW Standard Deviation 50.9 fL (36.4-46.3) RDW Coefficient of Variation 14.6 % (11.5-14.5) Immature Granulocyte % (Auto) 0.3 % Immature Granulocyte # (Auto) 0.02 K/uL (0.00-0.02) Prothrombin Time 12.0 SECONDS (9.0-12.0) Prothromb Time International Ratio 1.1 (0.9-1.1) Activated Partial Thromboplast Time 32.1 SECONDS (21.0-31.0) Partial Thromboplastin Ratio 1.2 Urine Color RED Urine Appearance CLOUDY (CLEAR) Urine pH 7.0 (4.5-7.5) Urine Specific [place] 1.020 (1.000-1.030) Urine Protein 2+ (NEG) Urine Glucose (UA) NEG (NEG) Urine Ketones NEG (NEG) Urine Occult Blood 3+ (NEG) Urine Nitrite NEG (NEG) Urine Bilirubin NEG (NEG) Urine Urobilinogen NEG (NEG) Urine Leukocyte Esterase NEG (NEG) Urine RBC >30 /hpf (0-4) Urine WBC 0 /hpf (0-5) Urine Epithelial Cells 0-5 /lpf (0-5) Urine Bacteria NEG (NEG) Anion Gap 7.0 mmol/L (3-11) Est Creatinine Clear Calc Drug Dose 62.3 ml/min Estimated GFR () 76.8 Estimated GFR (Non- 66.3 BUN/Creatinine Ratio 17.3 (10-20) Calcium Level 9.0 mg/dl (8.5-10.1) ED Course 0155: The patient was evaluated in room A04B. A complete history and physical exam was performed. 0320: The patient was reevaluated. His Ruiz catheter was irrigated. He has blood-tinged urine present. No significant clots. The patient had a Pyridium given and a home packs applied. Return instructions were outlined. He will call urology later today. Medical Decision Triage Nursing notes reviewed. The patient's presentation and history were concerning for penile bleeding. Etiologies such as UTI, coagulopathy, trauma, malignancy, renal failure, as well as others were entertained. The patient was evaluated. He had some suprapubic discomfort on examination but had no significant abdominal tenderness, rebound or guarding. The patient did not have any significant blood at the meatus or discharge. I did a limited bedside ultrasound and he did have moderate urine in the bladder but felt like he could not empty. I did have concerns that he may be clotting off his urethra and ordered a Ruiz catheter. Blood work was obtained to check his coags as well as kidney function. CBC was also checked. His blood work is unremarkable. Urinalysis showed only blood. There is no bacteria present. The patient was given Pyridium. Instructions for a leg bag usage was also given. The patient was irrigated. He will follow up with his urologist. Return instructions were explicitly outlined to the patient and his . I gave my usual and customary discussion regarding this issue. By the evaluation outlined above other emergent etiologies such as those listed in the differential, as well as others, were deemed relatively unlikely. The patient was educated about the findings as listed above. All questions were answered and the patient was pleased with the treatment. Return instructions were outlined and the patient was discharged in stable condition. The patient was referred to [facility] urology for follow-up for a recheck of the current condition. Medication Reconcilliation Current Medication List: was personally reviewed by me Impression Primary Impression: Hematuria Scribe Attestation The scribe's documentation has been prepared under my direction and personally reviewed by me in its entirety. I confirm that the note above accurately reflects all work, treatment, procedures, and medical decision making performed by me. Departure Information Dispostion Home / Self-Care Prescriptions Phenazopyridine HCl (Pyridium) 200 Mg Tab 200 MG PO TID Y for Frequency/Burning w/Urination, #10 TAB Prov: Mike Green MD 04/23/17 Referrals Mike Cisse M.D. (PCP) Patient Instructions My [facility] Additional Instructions Pyridium 200mg: Take one three times daily as needed for urinary pain. Acetaminophen(Tylenol) may be used for fever or pain. Use 1000mg every six hours as needed. Avoid using more than 3000mg in a 24 hour period. Continue current medications. Care for the catheter as discussed. Do not pull on the catheter. Use the leg bag during the day and the large bag at night when you are sleeping. Drain the bag frequently. Do not let it fill completely. Return to the emergency department for fevers, abdominal pain, catheter problems , or as needed. Followup with Dr. Farfan at the [facility] at [phone]. Call tomorrow for an appointment.
[2017-04-23 02:37] LABS: BASO % 0.5 %; BASO ABS # 0.04 K/uL (0-0.2); EOS % 2.6 %; EOS ABS # 0.21 K/uL (0-0.5); HEMATOCRIT 40.4 % (42-52); HEMOGLOBIN 13.5 g/dL (14.0-18.0); IG# 0.02 K/uL (0.00-0.02); LYMPH % 13.2 %; LYMPH ABS # 1.05 K/uL (1.2-3.4); MEAN CELL VOLUME 95.7 fL (80-100); MEAN CORPUSCULAR HGB CONC 33.4 g/dl (32-36); MEAN PLATELET VOLUME 11.6 fL (7.4-10.4); MONO % 11.3 %; NEUT % 72.1 %; NEUT ABS # 5.71 K/uL (1.4-6.5); PLATELET COUNT 133 K/uL (130-400); RED CELL DISTRIBUTION WIDTH CV 14.6 % (11.5-14.5); RED CELL DISTRIBUTION WIDTH SD 50.9 fL (36.4-46.3); WHITE BLOOD COUNT 7.93 K/uL (4.8-10.8)
[2017-04-23 02:47] LABS: INR 1.1 (0.9-1.1); PTT PATIENT 32.1 SECONDS (21.0-31.0)
[2017-04-23 02:55] LABS: CREATININE 1.05 mg/dl (0.60-1.40); POTASSIUM 3.9 mmol/L (3.5-5.1)
[2017-04-23] MEDS ORDERED: CHOL1000 PO (02:59)
[2017-04-23] MEDS ORDERED: FINA5TAB4 PO (03:00)
[2017-04-23] MEDS ORDERED: DONE1TAB11 PO (03:00)
[2017-04-23] MEDS ORDERED: FESO4TAB PO (03:01)
[2017-04-23] MEDS ORDERED: PHENAZOPYRIDINE HCL 200 MG TAB PO STA (03:28)
[2017-04-23] MEDS ORDERED: PHEN-876 PO (03:30)
[2017-04-23] MEDS ORDERED: PHENAZOPYRIDINE HOME PACK 200 MG VIAL PO ONE (03:30)
[2017-04-23 03:47] VITALS: BP 143/90; PULSE 89; O2SAT 94
--- NOTE | 2017-04-25 15:57 | Pharmacy Progress Note ---
ED Pharmacist Culture FollowUp Date of Service: Apr 25, 2017. Patient's urine cx (cath specimen) is growing staph epi (>100,000CFU/mL) Pt seen in ED 04/23 for bleeding from urethra as well as penis pain He has h/o bladder cancer and had a cystoscopy ~4 wks prior to visit UA did not appear infected (0 WBC, 0 bacteria, negative nitrates and negative LE , 0-5 epis); pt wsa afebrile and no leukocytosis noted on labs Pt was dx with hematuria, discharged w/ pyridium and instructed to f/u with urology Could this be contamination? Reviewed case with Dr Green who recommended the patient be placed on Macrobid because the specimen was a cath specimen. Spoke with patient's who states pt has f/u appt w/ Dr Farfan next week. She asked Macrobid be called to [facility] ([phone]) Macrobid 100mg PO BID x 7 days called to this pharmacy.
== END 2017-04-23 03:48 | disposition home or self-care (01) ==
LOC: C.EDB 01:26 → C.EDA 03:48
DX: R31.9 Hematuria, unspecified (principal); E03.9 Hypothyroidism, unspecified; G47.30 Sleep apnea, unspecified; Z79.82 Long term (current) use of aspirin; Z79.899 Other long term (current) drug therapy; Z85.038 Personal history of other malignant neoplasm of large intestine; Z85.118 Personal history of other malignant neoplasm of bronchus and lung; Z85.51 Personal history of malignant neoplasm of bladder; Z87.891 Personal history of nicotine dependence

== ENCOUNTER → 2017-06-10 | Outpatient (CLI) | payer OTHER, BC ==
[~2017-06-10] MED LIST changes: +CHOL1000 PO; +DONE5TAB26 PO; +FESO4TAB PO; +FINA5TAB4 PO; +PHEN-876 PO
== END | disposition home or self-care (01) ==
LOC: C.LAB 13:10
PROVIDERS: ATTEND Urology
DX: R32 Unspecified urinary incontinence (principal)

== ENCOUNTER 2017-07-19 09:29 | Inpatient (IN) | payer OTHER, BC ==
[~2017-07-19] VITALS: Ht 185.4 cm; Wt 89.0 kg
[2017-07-19] MEDS ORDERED: SODIUM CHLORIDE 0.9% 1000ML 1,000 ML IV STA (10:06)
[2017-07-19] MEDS ORDERED: PANTOprazole INJ 40 MG in SYRINGE 0 ML IV ONE (10:15)
[2017-07-19] MEDS ORDERED: OPTIRAY 320 IV PRN (10:30)
[2017-07-19 10:45] LABS: BASO % 0.2 %; BASO ABS # 0.02 K/uL (0-0.2); EOS % 2.1 %; EOS ABS # 0.18 K/uL (0-0.5); HEMATOCRIT 41.4 % (42-52); HEMOGLOBIN 13.6 g/dL (14.0-18.0); IG# 0.02 K/uL (0.00-0.02); LYMPH % 10.5 %; LYMPH ABS # 0.91 K/uL (1.2-3.4); MEAN CELL VOLUME 94.1 fL (80-100); MEAN CORPUSCULAR HEMOGLOBIN 30.9 pg (25-34); MEAN CORPUSCULAR HGB CONC 32.9 g/dl (32-36); MEAN PLATELET VOLUME 11.8 fL (7.4-10.4); MONO % 11.3 %; MONO ABS # 0.98 K/uL (0.11-0.59); NEUT % 75.7 %; NEUT ABS # 6.53 K/uL (1.4-6.5); PLATELET COUNT 149 K/uL (130-400); RED CELL DISTRIBUTION WIDTH CV 14.5 % (11.5-14.5); RED CELL DISTRIBUTION WIDTH SD 49.6 fL (36.4-46.3); WHITE BLOOD COUNT 8.64 K/uL (4.8-10.8)
[2017-07-19 11:04] LABS: ALBUMIN 3.4 gm/dl (3.4-5.0); ALT/SGPT 16 U/L (12-78); AST/SGOT 11 U/L (15-37); BLOOD UREA NITROGEN 16 mg/dl (7-18); CALCIUM 8.8 mg/dl (8.5-10.1); CARBON DIOXIDE 30 mmol/L (21-32); CREATININE 1.07 mg/dl (0.60-1.40); GLUCOSE 96 mg/dl (70-99); LIPASE 46 U/L (73-393); POTASSIUM 3.8 mmol/L (3.5-5.1); SODIUM 139 mmol/L (136-145)
[2017-07-19 11:07] LABS: ALKALINE PHOSPHATASE 82 U/L (45-117); TOTAL PROTEIN 6.6 gm/dl (6.4-8.2)
--- NOTE | 2017-07-19 12:06 | DIAGNOSTIC IMAGING REPORT ---
CT OF THE ABDOMEN AND PELVIS WITH CONTRAST CLINICAL HISTORY: Abdominal pain, diarrhea and melena. COMPARISON STUDY: CT of the abdomen and pelvis January 18, 2017. TECHNIQUE: Following IV administration of 93 mL of Optiray-320, axial images of the abdomen and pelvis were obtained from the lung bases to the proximal femurs. Images were reviewed in the axial, sagittal, and coronal planes. IV contrast was administered without complication. A dose lowering technique was utilized adhering to the principles of ALARA. CT DOSE: 912.15 mGycm FINDINGS: Imaged portions of the lower chest demonstrate a trace right pleural effusion which is unchanged. This may be chronic. There are innumerable calcified granulomas throughout the lungs. There are calcified granulomas within the liver and spleen. There is no significant biliary ductal dilatation status post cholecystectomy. The adrenal glands, kidneys and pancreas are unremarkable. There is no hydronephrosis. No pneumatosis, free air or portal venous gas is present. Mild dilatation of the infrarenal abdominal aorta, measuring 3.1 cm, is unchanged. Mild dilatation of the left common iliac artery, measuring 1.8 cm, is unchanged. The appendix is normal. There is no evidence for a bowel obstruction. There is moderate wall thickening and mild pericolonic infiltration involving the entirety of the colon. There is no abscess. There is submucosal fat deposition within the colon as well as portions of the small bowel. Fat-containing ventral hernias are noted. No suspicious osseous lesion is present. No mucosal lesion is identified although sensitivity is diminished given CT technique. IMPRESSION: 1. Moderate wall thickening and mild pericolonic infiltration involving the entire colon consistent with a pancolitis, likely infectious or inflammatory in etiology. This may reflect acute on chronic colitis given submucosal fat and position within portions of the colon and small bowel. Decreased sensitivity for detection mucosal lesions given CT technique but none identified. 2. No change in a 3.1 cm infrarenal abdominal aortic aneurysm. No rupture. Electronically signed by: Macario Maddox M.D. 07/19/2017 12:05 PM Dictated Date/Time: 07/19/2017 11:56 AM
[2017-07-19] MEDS ORDERED: CIPROFLOXACIN 400MG / 200ML D5W IV STA (12:46)
[2017-07-19] MEDS ORDERED: METRONIDAZOLE 500MG / 100ML NSS IV STA (12:46)
--- NOTE | 2017-07-19 12:48 | EMERGENCY ROOM VISIT NOTE ---
History Report prepared by Spring: Jay Otero Under the Supervision of: Dr. Bird Garcia M.D. First contact with patient: 09:57 Chief Complaint: DIARRHEA Stated Complaint: DIARRHEA X 2 WEEKS History of Present Illness The patient is an 81 year old male who presents to the Emergency Room with complaints of "severe" diarrhea that began on Saturday, 5 days ago. The patient states that he has had diarrhea for the past two weeks, but his at bedside notes that there was a significant worsening of the symptoms 5 days ago. The patient states that his diarrhea has gotten so bad over the past couple of days that his rectum is sore and he cannot control it all. His states that she can see a "constant drip" of diarrhea across the floor where he walks. The patient adds that the constant drip is accompanied by 10-12 episodes of more substantial diarrhea bowel movements. He also notes that the diarrhea has become "very dark brown." He also notes some intermittent and sudden sharp pain around his bellybutton. He denies any associated fever, chills, cough, congestion, or headaches. Source of History: patient, spouse/significant other Onset: 5 days ago Position: abdomen Symptom Intensity: 10/12 bouts of diarrhea per day Quality: sharp Timing: constant (drip), intermittent (10-12 daily bouts) Associated Symptoms: No fevers, No chills, No headache Review of Systems See HPI for pertinent positives and negatives. A total of ten systems were reviewed and were otherwise negative. Past Medical & Surgical Medical Problems: (1) Benign prostatic hypertrophy (2) Colitis (3) Hyperthyroidism (4) Lung cancer with right lobectomy (5) Near syncope (6) Sleep apnea Surgical Problems: (1) Colon resection for colon cancer Family History Cancer MOTHER Social History Smoking Status: Former Smoker Drug Use: none Marital Status: Housing Status: lives with family Occupation Status: retired Current/Historical Medications Scheduled Aspirin (Aspirin 81 Low Dose), 81 MG PO DAILY Atorvastatin (Lipitor), 20 MG PO QAM Bupropion HCl (Bupropion HCl Xl), 150 MG PO DAILY Carvedilol (Coreg), 6.25 MG PO BID Cholecalciferol (Vitamin D3), 1 TAB PO DAILY Donepezil Hydrochloride (Donepezil Hcl), 5 MG PO DAILY Fesoterodine Fumarate (Toviaz), 4 MG PO DAILY Finasteride (Proscar), 5 MG PO DAILY Gabapentin (Neurontin), 600 MG PO BID Levothyroxine Sodium (Levothyroxine Sodium), 112 MCG PO QAM Lisinopril (Zestril), 40 MG PO QAM Pantoprazole (Protonix), 40 MG PO QAM Tamsulosin Hcl (Flomax), 0.4 MG PO QAM Vitamin E (E-400), 400 UNIT PO DAILY Allergies Coded Allergies: Lactose (Verified Adverse Reaction, Mild, LACTOSE INTOLERANCE, 04/23/17) Physical Exam Vital Signs Date Time Temp Pulse Resp B/P (MAP) Pulse Ox O2 Delivery O2 Flow Rate FiO2 07/19/17 13:30 65 16 115/76 98 Room Air 07/19/17 13:03 61 07/19/17 11:00 62 18 132/81 98 Room Air 07/19/17 10:31 73 07/19/17 09:33 36.4 82 18 126/77 97 Room Air Physical Exam GENERAL: Awake, alert, fatigued-appearing, in no distress HENT: Normocephalic, atraumatic. Dry mucous membranes. EYES: Normal conjunctiva. Sclera non-icteric. NECK: Supple. No nuchal rigidity. FROM. No JVD. RESPIRATORY: Clear to auscultation. CARDIAC: Regular rate, normal rhythm. Extremities warm and well perfused. Pulses equal. ABDOMEN: Soft, non-distended. There is generalized abdominal discomfort, no discrete tenderness to palpation. No rebound or guarding. No masses. RECTAL: Deferred. MUSCULOSKELETAL: Chest examination reveals no tenderness. The back is symmetrical on inspection without obvious abnormality. There is no CVA tenderness to palpation. No joint edema. LOWER EXTREMITIES: Calves are equal size bilaterally and non-tender. No edema. No discoloration. NEURO: Normal sensorium. No sensory or motor deficits noted. SKIN: No rash or jaundice noted. RECTAL: There is scant melena on exam, guaiac positive. Medical Decision & Procedures ER Provider Diagnostic Interpretation: Radiology results as stated below per my review and radiologist interpretation: CT OF THE ABDOMEN AND PELVIS WITH CONTRAST CLINICAL HISTORY: Abdominal pain, diarrhea and melena. COMPARISON STUDY: CT of the abdomen and pelvis January 18, 2017. TECHNIQUE: Following IV administration of 93 mL of Optiray-320, axial images of the abdomen and pelvis were obtained from the lung bases to the proximal femurs. Images were reviewed in the axial, sagittal, and coronal planes. IV contrast was administered without complication. A dose lowering technique was utilized adhering to the principles of ALARA. CT DOSE: 912.15 mGycm FINDINGS: Imaged portions of the lower chest demonstrate a trace right pleural effusion which is unchanged. This may be chronic. There are innumerable calcified granulomas throughout the lungs. There are calcified granulomas within the liver and spleen. There is no significant biliary ductal dilatation status post cholecystectomy. The adrenal glands, kidneys and pancreas are unremarkable. There is no hydronephrosis. No pneumatosis, free air or portal venous gas is present. Mild dilatation of the infrarenal abdominal aorta, measuring 3.1 cm, is unchanged. Mild dilatation of the left common iliac artery, measuring 1.8 cm, is unchanged. The appendix is normal. There is no evidence for a bowel obstruction. There is moderate wall thickening and mild pericolonic infiltration involving the entirety of the colon. There is no abscess. There is submucosal fat deposition within the colon as well as portions of the small bowel. Fat-containing ventral hernias are noted. No suspicious osseous lesion is present. No mucosal lesion is identified although sensitivity is diminished given CT technique. IMPRESSION: 1. Moderate wall thickening and mild pericolonic infiltration involving the entire colon consistent with a pancolitis, likely infectious or inflammatory in etiology. This may reflect acute on chronic colitis given submucosal fat and position within portions of the colon and small bowel. Decreased sensitivity for detection mucosal lesions given CT technique but none identified. 2. No change in a 3.1 cm infrarenal abdominal aortic aneurysm. No rupture. Electronically signed by: Macario Maddox M.D. 07/19/2017 12:05 PM Dictated Date/Time: 07/19/2017 11:56 AM Laboratory Results 07/19/17 10:30 Red Blood Count 4.40, Mean Corpuscular Volume 94.1, Mean Corpuscular Hemoglobin 30.9, Mean Corpuscular Hemoglobin Concent 32.9, Mean Platelet Volume 11.8, Neutrophils (%) (Auto) 75.7, Lymphocytes (%) (Auto) 10.5, Monocytes (%) (Auto) 11.3, Eosinophils (%) (Auto) 2.1, Basophils (%) (Auto) 0.2, Neutrophils # (Auto ) 6.53, Lymphocytes # (Auto) 0.91, Monocytes # (Auto) 0.98, Eosinophils # (Auto ) 0.18, Basophils # (Auto) 0.02 07/19/17 10:30 Test 07/19/17 10:30 07/19/17 10:38 07/19/17 10:45 07/19/17 13:53 White Blood Count 8.64 K/uL (4.8-10.8) Red Blood Count 4.40 M/uL (4.7-6.1) Hemoglobin 13.6 g/dL (14.0-18.0) Hematocrit 41.4 % (42-52) Mean Corpuscular Volume 94.1 fL (80-100) Mean Corpuscular Hemoglobin 30.9 pg (25-34) Mean Corpuscular Hemoglobin Concent 32.9 g/dl (32-36) Platelet Count 149 K/uL (130-400) Mean Platelet Volume 11.8 fL (7.4-10.4) Neutrophils (%) (Auto) 75.7 % Lymphocytes (%) (Auto) 10.5 % Monocytes (%) (Auto) 11.3 % Eosinophils (%) (Auto) 2.1 % Basophils (%) (Auto) 0.2 % Neutrophils # (Auto) 6.53 K/uL (1.4-6.5) Lymphocytes # (Auto) 0.91 K/uL (1.2-3.4) Monocytes # (Auto) 0.98 K/uL (0.11-0.59) Eosinophils # (Auto) 0.18 K/uL (0-0.5) Basophils # (Auto) 0.02 K/uL (0-0.2) RDW Standard Deviation 49.6 fL (36.4-46.3) RDW Coefficient of Variation 14.5 % (11.5-14.5) Immature Granulocyte % (Auto) 0.2 % Immature Granulocyte # (Auto) 0.02 K/uL (0.00-0.02) Erythrocyte Sedimentation Rate 15 mm/hr (0-14) Anion Gap 1.0 mmol/L (3-11) Est Creatinine Clear Calc Drug Dose 61.2 ml/min Estimated GFR () 75.1 Estimated GFR (Non- 64.8 BUN/Creatinine Ratio 14.7 (10-20) Calcium Level 8.8 mg/dl (8.5-10.1) Magnesium Level 2.1 mg/dl (1.8-2.4) Total Bilirubin 2.2 mg/dl (0.2-1) Direct Bilirubin 0.3 mg/dl (0-0.2) Aspartate Amino Transf (AST/SGOT) 11 U/L (15-37) Alanine Aminotransferase (ALT/SGPT) 16 U/L (12-78) Alkaline Phosphatase 82 U/L (45-117) Troponin I < 0.015 ng/ml (0-0.045) C-Reactive Protein 1.05 mg/dl (0-0.29) Total Protein 6.6 gm/dl (6.4-8.2) Albumin 3.4 gm/dl (3.4-5.0) Lipase 46 U/L (73-393) Procalcitonin < 0.05 ng/ml (0-0.5) Prothrombin Time 12.1 SECONDS (9.0-12.0) Prothromb Time International Ratio 1.2 (0.9-1.1) Lactic Acid Level 0.8 mmol/L (0.4-2.0) Laboratory results reviewed by me Medications Administered Medications (Trade) Dose Ordered Sig/Thea Route Start Time Stop Time Status Last Admin Dose Admin Sodium Chloride 1,000 ml @ 999 mls/hr Q1H1M STAT IV 07/19/17 10:06 07/19/17 11:06 DC 07/19/17 10:41 999 MLS/HR Pantoprazole Sodium 40 mg/ Syringe 10 ml @ 5 mls/min NOW ONCE IV 07/19/17 10:15 07/19/17 10:18 DC 07/19/17 11:57 5 MLS/MIN Ciprofloxacin/ Dextrose (Cipro / D5W) 400 mg NOW STAT IV 07/19/17 12:46 07/19/17 12:47 DC 07/19/17 13:30 400 MG Metronidazole (Flagyl / Nss) 500 mg NOW STAT IV 07/19/17 12:46 07/19/17 12:47 DC 07/19/17 13:24 500 MG ED Course 1005: The patient was evaluated in room C2. A complete history and physical exam was performed. 1213: I updated the patient at this time. He is doing well. 1244: I discussed the case with Dr. Placido Dior - He will evaluate the patient for further treatment. Medical Decision I reviewed the patient's past medical history, medications, and the nursing notes as described above. Differential diagnosis: Etiologies such as diverticulosis, AVM, coagulopathy, colitis, inflammatory bowel disease, malignancy, Tonja-Taylor tear, esophagitis, peptic ulcer disease , variceal bleed, gastritis, epistaxis, fissure, hemorrhoids, as well as others were entertained. The patient is an 81-year-old gentleman with a past medical history of a remote colon resection secondary to colon cancer presents emergency department with 2 weeks of worsening persistent diarrhea with incontinence per hpi. On arrival the patient is fatigued and uncomfortable but no acute distress, afebrile stable vital signs. Rectal exam demonstrates scant melena that is guaiac positive. Labs otherwise unremarkable including WBC and H&H within normal limits. Chemistry also unremarkable. The patient has mild elevation in ESR and CRP. CT abdomen pelvis demonstrates a pancolitis. Given the patient's age and is clinically dry appearance in the setting of poor p.o. intake it is reasonable to admit the patient for IV antibiotics and further hydration. Patient is agreeable with this plan. Case was discussed with Dr. Cummins, [facility] hospitalist, who will admit the patient for further management. Medication Reconcilliation Current Medication List: was personally reviewed by me Blood Pressure Screening Patient's blood pressure: Normal blood pressure Consults Time Called: 1240 Consulting Physician: Dr. Placido Dior - [facility] Hospitalist Returned Call: [phone] I discussed the case with Dr. Placido Dior - He will evaluate the patient for further treatment. Impression Primary Impression: Pancolitis Scribe Attestation The scribe's documentation has been prepared under my direction and personally reviewed by me in its entirety. I confirm that the note above accurately reflects all work, treatment, procedures, and medical decision making performed by me. Departure Information Dispostion Transfer Acute Care Facility Referrals Mike Cisse M.D. (PCP) Patient Instructions My [facility]
[2017-07-19] MEDS ORDERED: [UNRECOGNIZED DRUG - OTHER] IV SCH (14:00)
[2017-07-19] MEDS ORDERED: ONDANSETRON INJ 2 MG/ML 2 ML VIAL IV PRN (14:00)
[2017-07-19] MEDS ORDERED: ZOLPIDEM TARTRATE 5 MG TAB PO PRN ×2 (14:00)
[2017-07-19] MEDS ORDERED: MAGNESIUM HYDROXIDE SUSP 30 ML UDC PO PRN (14:00)
[2017-07-19] MEDS ORDERED: ACETAMINOPHEN 325 MG TAB PO PRN (14:00)
[2017-07-19] MEDS ORDERED: ALUMINUM/MAGNESIUM/SIMETH (MAALOX MAX) 30 ML UDC PO PRN (14:00)
[2017-07-19 16:30] VITALS: BP 156/84; PULSE 67; TEMP 36.4; O2SAT 97
[2017-07-19 17:32] LABS: INR 1.2 (0.9-1.1)
[2017-07-19 17:57] VITALS: Ht 185.4 cm; Wt 89.0 kg
[2017-07-19] MEDS: SODIUM CHLORIDE 0.9% 1000ML 1,000 ML IV SCH (18:38)
[2017-07-19] MEDS: ONDANSETRON 4MG OD TAB SL SCH ×2 (18:55→23:59)
[2017-07-19] MEDS ORDERED: [UNRECOGNIZED DRUG - OTHER] IV SCH (21:00)
[2017-07-19] MEDS: GABAPENTIN 600 MG TAB PO SCH (22:23)
[2017-07-19] MEDS: METRONIDAZOLE 500MG / NSS IV SCH (22:23)
[2017-07-19] MEDS: CARVEDILOL 6.25 MG TAB PO SCH (22:24)
[2017-07-19] MEDS: DONEPEZIL HCL 5 MG TAB PO SCH (22:24)
[2017-07-19] MEDS: HEPARIN SOD 5000 UNIT/0.5 ML CARP SQ SCH (22:27)
[2017-07-19 23:06] VITALS: BP 122/72; PULSE 65; TEMP 36.4; O2SAT 96
[2017-07-20] MEDS: CIPROFLOXACIN 400MG / D5W IV SCH ×2 (00:02→15:03)
[2017-07-20] MEDS: METRONIDAZOLE 500MG / NSS IV SCH ×3 (05:22→21:55)
[2017-07-20] MEDS: LEVOTHYROXINE 112 MCG TAB PO SCH (05:23)
[2017-07-20] MEDS: ONDANSETRON 4MG OD TAB SL SCH ×4 (05:24→23:37)
[2017-07-20] MEDS: HEPARIN SOD 5000 UNIT/0.5 ML CARP SQ SCH ×3 (05:30→21:54)
[2017-07-20 06:39] LABS: BASO % 1.1 %; BASO ABS # 0.05 K/uL (0-0.2); EOS % 4.5 %; EOS ABS # 0.21 K/uL (0-0.5); HEMATOCRIT 37.7 % (42-52); HEMOGLOBIN 12.6 g/dL (14.0-18.0); IG# 0.02 K/uL (0.00-0.02); LYMPH % 18.1 %; LYMPH ABS # 0.85 K/uL (1.2-3.4); MEAN CORPUSCULAR HEMOGLOBIN 31.4 pg (25-34); MEAN CORPUSCULAR HGB CONC 33.4 g/dl (32-36); MEAN PLATELET VOLUME 11.5 fL (7.4-10.4); MONO % 11.3 %; MONO ABS # 0.53 K/uL (0.11-0.59); NEUT % 64.6 %; NEUT ABS # 3.04 K/uL (1.4-6.5); PLATELET COUNT 130 K/uL (130-400); RED CELL DISTRIBUTION WIDTH CV 14.3 % (11.5-14.5); RED CELL DISTRIBUTION WIDTH SD 49.1 fL (36.4-46.3)
[2017-07-20 07:05] VITALS: BP 110/66; PULSE 64; TEMP 36.3; O2SAT 92
[2017-07-20 07:17] LABS: ALBUMIN 2.8 gm/dl (3.4-5.0); CALCIUM 8.1 mg/dl (8.5-10.1); CREATININE 1.09 mg/dl (0.60-1.40); POTASSIUM 3.5 mmol/L (3.5-5.1)
[2017-07-20 07:20] LABS: TOTAL PROTEIN 5.8 gm/dl (6.4-8.2)
[2017-07-20] MEDS ORDERED: FAMOTIDINE IV INJ 20 MG in SYRINGE 3 ML IV SCH (09:00)
[2017-07-20] MEDS: TAMSULOSIN HCL 0.4 MG CAP PO SCH (09:41)
[2017-07-20] MEDS: FINASTERIDE 5 MG TAB PO SCH (09:41)
[2017-07-20] MEDS: CARVEDILOL 6.25 MG TAB PO SCH ×2 (09:41→21:56)
[2017-07-20] MEDS: GABAPENTIN 600 MG TAB PO SCH ×2 (09:41→21:57)
[2017-07-20] MEDS: ASPIRIN 81 MG CHEW PO SCH (09:41)
[2017-07-20] MEDS: PANTOprazole SOD 40 MG TAB PO SCH (09:42)
[2017-07-20] MEDS: LISINOPRIL 10 MG TAB PO SCH (09:42)
[2017-07-20] MEDS: ATORVASTATIN 20 MG TAB PO SCH (09:42)
[2017-07-20] MEDS: BuPROPion XL 150 MG TABCR PO SCH (09:42)
--- NOTE | 2017-07-20 12:54 | Hospitalist Progress Note ---
Hospitalist Progress Note Date of Service Jul 20, 2017. Subjective Pt evaluation today including: conversation w/ patient Patient reports no diarrhea at all since he has been here. Still has some periumbilical pain. Denies any blood in the stool. Denies nausea or vomiting at all. No fevers prior to admission. He has a history of cholecystectomy. Total bilirubin though is elevated here which is new for him. Otherwise, transaminases are normal. He has a history of colon resection for colon cancer, as well as lung cancer with resection and extensive XRT Neurologic: + numbness/tingling (Chronic peripheral neuropathy of the legs) All Other Systems: Reviewed and Negative Objective Vital Signs Date Time Temp Pulse Resp B/P (MAP) Pulse Ox O2 Delivery O2 Flow Rate FiO2 07/20/17 09:00 Room Air 07/20/17 07:05 36.3 64 16 110/66 (81) 92 Room Air 07/20/17 00:00 Room Air 07/19/17 23:06 36.4 65 16 122/72 (89) 96 CPAP 07/19/17 18:00 Room Air 07/19/17 17:57 Room Air 07/19/17 16:30 36.4 67 18 156/84 (108) 97 Room Air 07/19/17 15:00 67 16 126/65 98 Room Air 07/19/17 14:58 63 16 170/85 96 Room Air 07/19/17 13:30 65 16 115/76 98 Room Air 07/19/17 13:03 61 Physical Exam General Appearance: WD/WN, no apparent distress Eyes: normal inspection, sclerae normal ENT: hearing grossly normal Neck: trachea midline Respiratory/Chest: lungs clear, normal breath sounds, no respiratory distress, no accessory muscle use Cardiovascular: regular rate, rhythm, no edema, no gallop, no murmur Abdomen: normal bowel sounds, soft, + tenderness (Minimal in the periumbilical region without guarding or rebound, negative Wiggins sign, no hepatomegaly, midline laparotomy incision is well-healed, possible ventral hernia in the incision that is reducible) Extremities: normal inspection, no pedal edema, no calf tenderness Neurologic/Psychiatric: alert, normal mood/affect, oriented x 3 Skin: normal color, warm/dry, no rash Laboratory Results Last 24 Hours Test 07/20/17 04:44 07/20/17 06:31 White Blood Count 4.70 K/uL Red Blood Count 4.01 M/uL Hemoglobin 12.6 g/dL Hematocrit 37.7 % Mean Corpuscular Volume 94.0 fL Mean Corpuscular Hemoglobin 31.4 pg Mean Corpuscular Hemoglobin Concent 33.4 g/dl Platelet Count 130 K/uL Mean Platelet Volume 11.5 fL Neutrophils (%) (Auto) 64.6 % Lymphocytes (%) (Auto) 18.1 % Monocytes (%) (Auto) 11.3 % Eosinophils (%) (Auto) 4.5 % Basophils (%) (Auto) 1.1 % Neutrophils # (Auto) 3.04 K/uL Lymphocytes # (Auto) 0.85 K/uL Monocytes # (Auto) 0.53 K/uL Eosinophils # (Auto) 0.21 K/uL Basophils # (Auto) 0.05 K/uL RDW Standard Deviation 49.1 fL RDW Coefficient of Variation 14.3 % Immature Granulocyte % (Auto) 0.4 % Immature Granulocyte # (Auto) 0.02 K/uL Sodium Level 141 mmol/L Potassium Level 3.5 mmol/L Chloride Level 108 mmol/L Carbon Dioxide Level 28 mmol/L Anion Gap 5.0 mmol/L Blood Urea Nitrogen 12 mg/dl Creatinine 1.09 mg/dl Est Creatinine Clear Calc Drug Dose 60.1 ml/min Estimated GFR () 73.4 Estimated GFR (Non- 63.3 BUN/Creatinine Ratio 11.3 Random Glucose 82 mg/dl Lactic Acid Level 0.7 mmol/L Calcium Level 8.1 mg/dl Magnesium Level 1.8 mg/dl Total Bilirubin 2.1 mg/dl Aspartate Amino Transf (AST/SGOT) 12 U/L Alanine Aminotransferase (ALT/SGPT) 15 U/L Alkaline Phosphatase 75 U/L Total Protein 5.8 gm/dl Albumin 2.8 gm/dl Globulin 3.0 gm/dl Albumin/Globulin Ratio 0.9 Assessment and Plan This patient is an 81-year-old male with past medical history of hypertension, dyslipidemia, BPH, depression, chemo-induced peripheral neuropathy, hypothyroidism, obstructive sleep apnea on CPAP, minor CVA, GERD, colon cancer 20 years ago status post colon resection, lung cancer 15 years ago status post lung resection and XRT, bladder cancer 3 years ago and chemo-induced peripheral neuropathy. Presented to the hospital with progressively worsening diarrhea, weakness, found to have pancolitis on CT scan. Total bilirubin is mildly elevated at 2.2 , other LFTs are normal, INR is mildly elevated at 1.2. [place] colitis/diarrhea/weakness-electrolytes all stable- likely infectious in nature but ongoing for at least 1 month-diarrhea has already significantly slowed down since receiving antibiotics. C. difficile is negative Hyperbilirubinemia-new for him since last labs one and half years ago, no right upper quadrant pain, has a history of cholecystectomy, has granulomatous disease in the liver -Continue IV fluid hydration until adequately taking p.o. -Continue Cipro/Flagyl -Continue Pepcid for GI prophylaxis -Follow-up stool culture -Follow-up results of ova and parasite for Giardia, Cryptosporidium, Cyclospora and microsporidia -Ordered stool culture, pending collection Consult GI-appreciate recommendations -Follow LFTs -Check liver ultrasound [place] on CPAP-stable -Patient can use his on CPAP, patient will bring CPAP machine from home HTN Dyslipidemia Stable abdominal aneurysm 3.1 cm History of CVA Continue all his home meds of aspirin, Coreg, atorvastatin, but decrease lisinopril from 40 to 10 mg daily giving his dehydration BPH-stable -Continue Flomax, finasteride Hypothyroidism-last TSH was 0.66 months ago -Check TSH -Continue home levothyroxine GERD-stable -Continue PPI Colon cancer status post resection, chemotherapy, radiation 20 years ago Lung cancer status post right upper lobectomy and XRT Bladder cancer 3 years ago status post tumor resection all stable Dementia/depression-stable -Continue donepezil, bupropion Peripheral [id number] -Continue gabapentin Prophylaxis-SCDs, SQ heparin Disposition-remain on medical service -Possibly discharge tomorrow if GI symptoms resolved and no further evaluation planned by gastroenterology
--- NOTE | 2017-07-20 13:05 | GASTROINTESTINAL CONSULTATION ---
DATE OF CONSULTATION: 07/20/2017 REASON FOR EVALUATION: Severe diarrhea. HISTORY OF PRESENT ILLNESS: The patient is an 81-year-old with acute onset about 5 days ago of diarrhea up to 10 times a day. The patient was having explosive watery diarrhea without any visible blood. This was associated with a crampy periumbilical abdominal pain. He was having fecal incontinence and became concerned and presented to the hospital for further evaluation. Note that the patient had about a foot of his colon removed about 25 years ago for colon cancer. Since being hospitalized, he has had a stool for C. diff done, which was negative. PAST MEDICAL HISTORY: Remarkable for colon cancer, status post resection. He had a right lobectomy for lung cancer. He has bladder polyps removed. He has had BPH, sleep apnea, hypothyroidism, hypertension, acid reflux, hyperlipidemia. MEDICATIONS: Baby aspirin, Lipitor, bupropion, Coreg, vitamin D, donepezil, Toviaz, Proscar, Neurontin, levothyroxine, Zestril, Protonix, Flomax, and vitamin E. ALLERGIES: LACTOSE. FAMILY HISTORY: Positive for mother with cancer. SOCIAL HISTORY: The patient is and lives with his . He is retired, former smoker, lives at home. REVIEW OF SYSTEMS: Negative for 12 systems at this time. PHYSICAL EXAMINATION: GENERAL: The patient appears awake, alert, in no acute distress. VITAL SIGNS: Blood pressure is 115/76, pulse 65 and regular, room air saturations 98%, temperature is 36.4. ABDOMEN: Shows low midline scar. Bowel sounds are normal. There are no masses, tenderness, or hepatosplenomegaly. Lung exam shows a right thoracotomy scar. EXTREMITIES: Showed no clubbing, cyanosis or edema. CT scan shows thickening of the colon wall diffusely. LABORATORY: Shows normal white count of 8.64. Liver tests are normal. Lactic acid is normal at 0.8. IMPRESSION: The patient has acute onset of profuse diarrhea most likely infectious. Stool for C. diff is negative. Plan on checking stool for fecal leukocytes and stool for bacterial pathogens and norovirus. The patient will continue to be treated with supportive measures at this time including Cipro and Flagyl. We will follow the patient during his hospital stay.
[2017-07-20] MEDS: SODIUM CHLORIDE 0.9% 1000ML 1,000 ML IV SCH ×2 (13:32→23:36)
--- NOTE | 2017-07-20 14:53 | DIAGNOSTIC IMAGING REPORT ---
(LIVER) ABDOMEN LIMITED CLINICAL HISTORY: abdominal pain, diarrhea,hyperbilirubinemia TECHNIQUE: Ultrasound COMPARISON STUDY: None FINDINGS: Prior cholecystectomy. Common bile duct 3 mm. Fatty infiltration of liver. Pancreas and right kidney are unremarkable. No evidence for hydronephrosis IMPRESSION: 1. Fatty infiltration of liver. 2. Otherwise negative study post cholecystectomy. The above report was generated using voice recognition software. It may contain grammatical, syntax or spelling errors. Electronically signed by: Darrius Brown M.D. 07/20/2017 2:52 PM Dictated Date/Time: 07/20/2017 2:51 PM
[2017-07-20 15:08] VITALS: BP 103/39; PULSE 62; TEMP 36.4; O2SAT 95
[2017-07-20 15:30] VITALS: O2SAT 95
[2017-07-20 21:51] VITALS: BP 119/74; PULSE 66
[2017-07-20] MEDS: FAMOTIDINE IV INJ 20 MG in SYRINGE 3 ML IV SCH (21:55)
[2017-07-20] MEDS: DONEPEZIL HCL 5 MG TAB PO SCH (21:56)
[2017-07-20 22:52] VITALS: BP 125/65; PULSE 60; TEMP 36.8; O2SAT 98
[2017-07-21] MEDS: CIPROFLOXACIN 400MG / D5W IV SCH ×2 (01:57→13:47)
[2017-07-21] MEDS: LEVOTHYROXINE 112 MCG TAB PO SCH (05:32)
[2017-07-21] MEDS: METRONIDAZOLE 500MG / NSS IV SCH ×2 (05:32→12:42)
[2017-07-21] MEDS: ONDANSETRON 4MG OD TAB SL SCH ×2 (05:33→12:42)
[2017-07-21 05:55] LABS: BASO % 1.1 %; BASO ABS # 0.05 K/uL (0-0.2); EOS ABS # 0.19 K/uL (0-0.5); HEMATOCRIT 35.8 % (42-52); HEMOGLOBIN 12.3 g/dL (14.0-18.0); IG# 0.01 K/uL (0.00-0.02); LYMPH % 18.2 %; LYMPH ABS # 0.86 K/uL (1.2-3.4); MEAN CELL VOLUME 94.7 fL (80-100); MEAN CORPUSCULAR HEMOGLOBIN 32.5 pg (25-34); MEAN CORPUSCULAR HGB CONC 34.4 g/dl (32-36); MEAN PLATELET VOLUME 11.5 fL (7.4-10.4); MONO % 12.5 %; MONO ABS # 0.59 K/uL (0.11-0.59); NEUT ABS # 3.02 K/uL (1.4-6.5); PLATELET COUNT 118 K/uL (130-400); RED CELL DISTRIBUTION WIDTH CV 14.5 % (11.5-14.5); RED CELL DISTRIBUTION WIDTH SD 50.3 fL (36.4-46.3); WHITE BLOOD COUNT 4.72 K/uL (4.8-10.8)
[2017-07-21] MEDS: HEPARIN SOD 5000 UNIT/0.5 ML CARP SQ SCH ×2 (05:55→13:48)
[2017-07-21 06:24] LABS: ALBUMIN 2.8 gm/dl (3.4-5.0); CALCIUM 8.4 mg/dl (8.5-10.1); CREATININE 1.17 mg/dl (0.60-1.40); POTASSIUM 3.8 mmol/L (3.5-5.1)
[2017-07-21 06:44] LABS: TOTAL PROTEIN 5.7 gm/dl (6.4-8.2)
[2017-07-21 06:54] VITALS: BP 117/67; PULSE 58; TEMP 36.3; O2SAT 93
[2017-07-21 09:00] VITALS: PULSE 74
[2017-07-21] MEDS: CARVEDILOL 6.25 MG TAB PO SCH (09:05)
[2017-07-21] MEDS: SODIUM CHLORIDE 0.9% 1000ML 1,000 ML IV SCH (09:05)
[2017-07-21] MEDS: TAMSULOSIN HCL 0.4 MG CAP PO SCH (09:05)
[2017-07-21] MEDS: BuPROPion XL 150 MG TABCR PO SCH (09:05)
[2017-07-21] MEDS: FAMOTIDINE IV INJ 20 MG in SYRINGE 3 ML IV SCH (09:05)
[2017-07-21] MEDS: FINASTERIDE 5 MG TAB PO SCH (09:05)
[2017-07-21] MEDS: PANTOprazole SOD 40 MG TAB PO SCH (09:05)
[2017-07-21] MEDS: ATORVASTATIN 20 MG TAB PO SCH (09:06)
[2017-07-21] MEDS: GABAPENTIN 600 MG TAB PO SCH (09:06)
[2017-07-21] MEDS: LISINOPRIL 10 MG TAB PO SCH (09:06)
[2017-07-21] MEDS: ASPIRIN 81 MG CHEW PO SCH (09:08)
--- NOTE | 2017-07-21 10:55 | PROGRESS NOTE ---
DATE: 07/21/2017 SUBJECTIVE: Patient reports no abdominal pain. He has not had a bowel movement really since he has been hospitalized. OBJECTIVE: VITAL SIGNS: His vital signs are normal. LABORATORY: White count is 4.72, hemoglobin 12.3, platelets are 118,000. Laboratory shows no C. diff. We have been unable to collect a stool for other stool studies since he has been in the hospital. IMPRESSION: Patient is doing well. Since he came in the hospital, his diarrhea has resolved. We may never find out exactly what caused his diarrhea, but it is probably an infectious agent and it is now being treated. I asked him when his last colonoscopy was and he thought it was more than 10 years ago and I think we should probably pursue an outpatient colonoscopy once he is discharged from the hospital.
[2017-07-21] MEDS ORDERED: MTR500 PO (15:15)
[2017-07-21] MEDS ORDERED: CPR500 PO (15:15)
--- NOTE | 2017-07-21 15:18 | Discharge Instructions ---
Discharge Instructions Date of Service Jul 21, 2017. Admission Reason for Admission: Colitis Discharge Discharge Diagnosis / Problem: Infectious colitis, diarrhea Discharge Goals Goal(s): Improve disease control, Diagnostic testing, Therapeutic intervention Activity Recommendations Activity Limitations: resume your previous activity Exercise/Sports Limitations: gradually increase as tolerated Shower/Bathe: no limitations Driving or Machine Use: Recommend no driving until further assessed with a dedicated truck driver's safety test and evaluation by your neurologist given your peripheral neuropathy and dementia . Instructions / Follow-Up Instructions / Follow-Up You were admitted for diarrhea and found to have inflammation of your colon which is called colitis. Your diarrhea completely resolved after being given antibiotics. Please finish out the course of both the ciprofloxacin and metronidazole for 7 more days. You will need a colonoscopy as an outpatient likely in 6-8 weeks. Please follow-up with Dr. Coyle of [facility] gastroenterology for this. Please follow-up with your PCP within 1 week. Current Hospital Diet Patient's current hospital diet: Low Sodium Diet (2gm Na) Discharge Diet Recommended Diet: Low Sodium Diet (2gm Na) Procedures Procedures Performed: CT abdomen/pelvis Liver ultrasound Pending Studies Studies pending at discharge: no Medical Emergencies . Who to Call and When: Medical Emergencies: If at any time you feel your situation is an emergency, please call 911 immediately. . Non-Emergent Contact Non-Emergency issues call your: Primary Care Provider, Technology And Engineering Teacher Call Non-Emergent contact if: you have a fever, temperature is above 100.5, your pain is not controlled, your pain is worsening, your pain is unusual for you, your pain is concerning you, you have any medication questions . . "Provider Documentation" section prepared by Sherrie Howell. .
--- NOTE | 2017-07-21 15:21 | Discharge Summary ---
Discharge Summary Date of Service Jul 21, 2017. Discharge Summary Admission Date: Jul 19, 2017 at 13:57 Discharge Date: Jul 21, 2017 Discharge Disposition: Home Principal Diagnosis: Infectious colitis, diarrhea Problems/Secondary Diagnoses: This patient is an 81-year-old male with past medical history of hypertension, dyslipidemia, BPH, depression, chemo-induced peripheral neuropathy, hypothyroidism, obstructive sleep apnea on CPAP, minor CVA, GERD, colon cancer 20 years ago status post colon resection, lung cancer 15 years ago status post lung resection and XRT, bladder cancer 3 years ago and chemo-induced peripheral neuropathy. Presented to the hospital with progressively worsening diarrhea, weakness, found to have pancolitis on CT scan. Total bilirubin is mildly elevated at 2.2 , other LFTs are normal, INR is mildly elevated at 1.2. [place] colitis/diarrhea/weakness-electrolytes all stable- likely infectious in nature but ongoing for at least 1 month-diarrhea has already significantly slowed down since receiving antibiotics. C. difficile is negative Hyperbilirubinemia-new for him since last labs one and half years ago, no right upper quadrant pain, has a history of cholecystectomy, has granulomatous disease in the liver -Continue IV fluid hydration until adequately taking p.o. -Continue Cipro/Flagyl -Continue Pepcid for GI prophylaxis -Follow-up stool culture -Follow-up results of ova and parasite for Giardia, Cryptosporidium, Cyclospora and microsporidia -Ordered stool culture, pending collection Consult GI-appreciate recommendations -Follow LFTs -Check liver ultrasound IRVING on CPAP-stable -Patient can use his on CPAP, patient will bring CPAP machine from home HTN Dyslipidemia Stable abdominal aneurysm 3.1 cm History of CVA Continue all his home meds of aspirin, Coreg, atorvastatin, but decrease lisinopril from 40 to 10 mg daily giving his dehydration BPH-stable -Continue Flomax, finasteride Hypothyroidism-last TSH was 0.66 months ago -Check TSH -Continue home levothyroxine GERD-stable -Continue PPI Colon cancer status post resection, chemotherapy, radiation 20 years ago Lung cancer status post right upper lobectomy and XRT Bladder cancer 3 years ago status post tumor resection all stable Dementia/depression-stable -Continue donepezil, bupropion Peripheral nlcbvolswl-snbsrahienel-bfhqmzk -Continue gabapentin Dementia Prophylaxis-SCDs, SQ heparin Disposition-remain on medical service -Possibly discharge tomorrow if GI symptoms resolved and no further evaluation planned by gastroenterology Procedures: CT abdomen/pelvis Liver ultrasound Consultations: Gastroenterology Medication Reconciliation New Medications: Ciprofloxacin (Ciprofloxacin HCl) 500 Mg Tab 500 MG PO BID for 7 Days, #14 TAB Metronidazole (Metronidazole) 500 Mg Tab 500 MG PO TID for 7 Days, #21 TAB Continued Medications: Aspirin (Aspirin 81 Low Dose) 81 Mg Chw 81 MG PO DAILY Atorvastatin (Lipitor) 20 Mg Tab 20 MG PO QAM Bupropion HCl (Bupropion HCl Xl) 150 Mg Tab 150 MG PO DAILY Carvedilol (Coreg) 6.25 Mg Tab 6.25 MG PO BID, 3 Refills Cholecalciferol (Vitamin D3) 1,000 Unit Tab 1 TAB PO DAILY for 90 Days, #90 TAB 3 Refills Donepezil Hydrochloride (Donepezil Hcl) 5 Mg Tab 5 MG PO DAILY Fesoterodine Fumarate (Toviaz) 4 Mg Tab 4 MG PO DAILY Finasteride (Proscar) 5 Mg Tab 5 MG PO DAILY Gabapentin (Neurontin) 600 Mg Tab 600 MG PO BID Levothyroxine Sodium (Levothyroxine Sodium) 112 Mcg Tab 112 MCG PO QAM Lisinopril (Zestril) 40 Mg Tab 40 MG PO QAM Pantoprazole (Protonix) 40 Mg Tab 40 MG PO QAM Tamsulosin Hcl (Flomax) 0.4 Mg Cap 0.4 MG PO QAM Vitamin E (E-400) 400 Unit Cap 400 UNIT PO DAILY Referrals At Discharge Follow up Referrals: Head Of Digital Advertising & Integration Referral - Within a Month with Darryl Coyle M.D. Discharge Exam Feeling very well. No abdominal pain at all. Has had not had a single bowel movement since he was admitted. He was a little confused when he woke up this morning. His is present at the bedside and reports that he is being treated for dementia and has had memory problems. Review of Systems: Constitutional: No fever, No chills Eyes: No problem reported ENT: No problem reported Respiratory: No shortness of breath Cardiovascular: No chest pain Abdomen: No pain, No nausea, No vomiting, No diarrhea Musculoskeletal: No problem reported Genitourinary - Male: + urinary incontinence Neurologic: + memory loss, + numbness/tingling (Of the bilateral legs which is chronic) Psychiatric: No problem reported Endocrine: No problem reported Hematologic / Lymphatic: No problem reported Integumentary: No problem reported Hospital Course This patient is an 81-year-old male with past medical history of hypertension, dyslipidemia, BPH, depression, chemo-induced peripheral neuropathy, hypothyroidism, obstructive sleep apnea on CPAP, minor CVA, GERD, colon cancer 20 years ago status post colon resection, lung cancer 15 years ago status post lung resection and XRT, bladder cancer 3 years ago and chemo-induced peripheral neuropathy. Presented to the hospital with progressively worsening diarrhea, weakness, found to have pancolitis on CT scan. Total bilirubin is mildly elevated at 2.2 , other LFTs are normal, INR is mildly elevated at 1.2. [place] colitis/diarrhea/weakness-electrolytes all stable- likely infectious in nature but ongoing for at least 1 month-diarrhea has already significantly slowed down since receiving antibiotics. C. difficile is negative Hyperbilirubinemia-new for him since last labs one and half years ago, no right upper quadrant pain, has a history of cholecystectomy, has granulomatous disease in the liver -Continue IV fluid hydration until adequately taking p.o. -Continue Cipro/Flagyl -Continue Pepcid for GI prophylaxis -Follow-up stool culture -Follow-up results of ova and parasite for Giardia, Cryptosporidium, Cyclospora and microsporidia -Ordered stool culture, pending collection Consult GI-appreciate recommendations -Follow LFTs -Check liver ultrasound IRVING on CPAP-stable -Patient can use his on CPAP, patient will bring CPAP machine from home HTN Dyslipidemia Stable abdominal aneurysm 3.1 cm History of CVA Continue all his home meds of aspirin, Coreg, atorvastatin, but decrease lisinopril from 40 to 10 mg daily giving his dehydration BPH-stable -Continue Flomax, finasteride Hypothyroidism-last TSH was 0.66 months ago -Check TSH -Continue home levothyroxine GERD-stable -Continue PPI Colon cancer status post resection, chemotherapy, radiation 20 years ago Lung cancer status post right upper lobectomy and XRT Bladder cancer 3 years ago status post tumor resection all stable Dementia/depression-stable -Continue donepezil, bupropion Peripheral mftowvuigl-foagjzhdrrbt-okjzxyj -Continue gabapentin Prophylaxis-SCDs, SQ heparin Disposition-remain on medical service -Possibly discharge tomorrow if GI symptoms resolved and no further evaluation planned by gastroenterology Total Time Spent: Greater than 30 minutes This includes examination of the patient, discharge planning, medication reconciliation, and communication with other providers. Discharge Instructions Please refer to the electronic Patient Visit Report (Discharge Instructions) for additional information. Follow-Up With PCP within 1 week With gastroenterology within 1 month Additional Copies To Darryl Coyle M.D.; Mike Cisse M.D.
[2017-07-21 15:39] VITALS: BP 117/67; PULSE 74; TEMP 36.3; O2SAT 93
== END 2017-07-21 16:20 | disposition home or self-care (01) | DRG 392 ==
LOC: C.EDB 09:30 → C.MSN 13:57 → ENRESERV 15:31
PROVIDERS: ADMIT Internal Medicine; ATTEND Family Medicine
DX: A09 Infectious gastroenteritis and colitis, unspecified (principal); K51.00 Ulcerative (chronic) pancolitis without complications; I11.0 Hypertensive heart disease with heart failure; I50.22 Chronic systolic (congestive) heart failure; N40.0 Benign prostatic hyperplasia without lower urinary tract symptoms; G47.33 Obstructive sleep apnea (adult) (pediatric); E78.5 Hyperlipidemia, unspecified; I71.4 Abdominal aortic aneurysm, without rupture; E03.9 Hypothyroidism, unspecified; K21.9 Gastro-esophageal reflux disease without esophagitis; F32.9 Major depressive disorder, single episode, unspecified; F03.90 Unspecified dementia, unspecified severity, without behavioral disturbance, psychotic disturbance, mood disturbance, and anxiety; G62.0 Drug-induced polyneuropathy; T45.1X5A Adverse effect of antineoplastic and immunosuppressive drugs, initial encounter; R15.9 Full incontinence of feces; Z79.82 Long term (current) use of aspirin; Z79.899 Other long term (current) drug therapy; Z85.038 Personal history of other malignant neoplasm of large intestine; Z85.118 Personal history of other malignant neoplasm of bronchus and lung; Z85.51 Personal history of malignant neoplasm of bladder; Z92.3 Personal history of irradiation; Z86.73 Personal history of transient ischemic attack (TIA), and cerebral infarction without residual deficits; Z87.891 Personal history of nicotine dependence; Z91.011 Allergy to milk products

== ENCOUNTER → 2017-08-03 | Outpatient (CLI) | payer OTHER, BC ==
[~2017-08-03] MED LIST changes: +CPR500 PO; +MTR500 PO; -PHEN-876 PO
== END | disposition home or self-care (01) ==
LOC: C.LAB1850 07:52
PROVIDERS: ATTEND Psychiatry & Neurology Neurology
DX: G62.9 Polyneuropathy, unspecified (principal)

== ENCOUNTER 2018-05-12 01:11 | Inpatient (IN) ==
[2018-05-12] MEDS ORDERED: NITROGLYCERIN 2% OINTMENT 30GM TUBE EXT STA (01:27)
[2018-05-12 01:36] LABS: Basophils # (auto) 0.08 K/uL (0-0.2); Eosinophils # (auto) 0.32 K/uL (0-0.5); Hematocrit (blood only) 40.2 % (42-52); Hemoglobin 13.1 g/dL (14.0-18.0); Immature Granulocytes # (auto) 0.02 K/uL (0.00-0.02); Immature Granulocytes % (auto) 0.2 %; Lymphocytes % (auto) 19.9 %; Mean Corpuscular Hgb Conc 32.6 g/dL (32-36); Mean Corpuscular Volume 96.9 fL (80-100); Mean Platelet Volume 12.1 fL (7.4-10.4); Monocytes # (auto) 0.75 K/uL (0.11-0.59); Monocytes % (auto) 9.3 %; Neutrophils # (auto) 5.27 K/uL (1.4-6.5); Neutrophils % (auto) 65.6 %; Platelet Count 179 K/uL (130-400); RDW Coefficient of Variation 14.9 % (11.5-14.5); RDW Standard Deviation 52.6 fL (36.4-46.3); Red Blood Count 4.15 M/uL (4.7-6.1); White Blood Count 8.04 K/uL (4.8-10.8)
[2018-05-12 01:41] LABS: iSTAT Hemoglobin 13.3 g/dl (14.0-18.0); iSTAT Ionized Calcium 1.2 mmol/l (1.12-1.32)
[2018-05-12 01:52] LABS: Alanine Aminotransferase 16 U/L (12-78); Albumin Level 3.2 gm/dl (3.4-5.0); Aspartate Aminotransferase 14 U/L (15-37); Blood Urea Nitrogen 17 mg/dl (7-18); Calcium 8.4 mg/dl (8.5-10.1); Carbon Dioxide 31 mmol/L (21-32); Chloride 110 mmol/L (98-107); Creatinine Clr Calc Pharmacy 58.7 ml/min; Est GFR (African American) 63.6; Est GFR (Non-African American) 54.9; Glucose 101 mg/dl (70-99); Sodium 145 mmol/L (136-145)
[2018-05-12 01:57] LABS: Alkaline Phosphatase 75 U/L (45-117); Bilirubin,Total 0.5 mg/dl (0.2-1); Creatine Kinase 84 U/L (39-308); Creatine Kinase MB 4.8 ng/ml (0.5-3.6); Globulin 3.3 gm/dl (2.5-4.0); Total Protein 6.5 gm/dl (6.4-8.2); Troponin I < 0.015 ng/ml (0-0.045)
--- NOTE | 2018-05-12 02:27 | History & Physical Report ---
Date of Service May 12, 2018 Assessment & Plan (1) Chest pain: Sharp, lasting seconds, no associated symptoms. Most likely atypical chest pain. Troponin x 1 negative, CKMB elevated at 4.8. EKG with stable LBBB. Patient presently CP free with Nitropatch in place -Observation to PCU -Trend troponin -Check 2D echocardiogram -continue ASA, Atorvastatin, Carvedilol, Lisinopril -Nitro and Morphine PRN (2) Hypertension: Blood pressure presently stable -Continue Lisinopril, Carvedilol (3) Hyperlipidemia: Stable. Chronic -Contnue Atorvastatin. If ACS will increase dosage (4) Benign prostatic hypertrophy: Stable. No symptoms -Continue Finasteride -Continue Tamsulosin (5) Hypothyroid: Check TSH with AM labs -Continue Sythroid (6) Cognitive impairment: Patient is AA&O x 4, appropriate -Continue Aricept -Continue Seroquel -Continue Vitamin E -Delirium prevention with frequent orientation and ambulation (7) IRVING on CPAP: CPAP qhS F/E/N - heplock. Electrolytes WNL, monitor. NPO for now Ppx - Lovenox. Continue home Protonix Code -Full DIspo - Obs to PCU History of Present Illness Chief Complaint: chest pain Primary Care Provider: Mike Cisse MD patient is a pleasant 82yo male with multiple medical problems, HTN, HLP, prior CVA presenting with chest pain. Pain woke him from sleep at approximately 01: 00 - sharp and stabbing at the left nipple lasting approximately 20 seconds then resolving. Pain 10/10 in severity and "knocked the breath out of him". Patient got out of bed and was getting his shoes on when the pain reoccurred. He woke up his and told her to call 911. When EMS arrived they administered multiple doses of Nitro SL as well as Nitro spray with relief of the pain. He denies diaphoresis, palpitations, SOB, dizziess or syncope.. Patient presently chest pain free. No additional complaints at this time. ER Course: Nitro paste Allergies Allergy/AdvReac Type Severity Reaction Status Date / Time lactose AdvReac Mild LACTOSE Verified 05/12/18 02:30 INTOLERANCE-GI UPSET Home Medications Home Medications Medication Instructions Recorded Confirmed Type aspirin [Aspir-81] 81 mg PO QAM 03/07/18 05/12/18 History atorvastatin 20 mg PO HS 03/07/18 05/12/18 History bupropion HCl 150 mg PO QAM 03/07/18 05/12/18 History cholecalciferol (vitamin D3) 1,000 unit PO QAM 03/07/18 05/12/18 History donepezil 5 mg PO HS 03/07/18 05/12/18 History finasteride 5 mg PO QAM 03/07/18 05/12/18 History gabapentin 600 mg PO BID 03/07/18 05/12/18 History levothyroxine 112 mcg PO QAM 03/07/18 05/12/18 History lisinopril 40 mg PO QAM 03/07/18 05/12/18 History pantoprazole 40 mg PO QAM 03/07/18 05/12/18 History quetiapine 12.5 mg PO HS 03/07/18 05/12/18 History tamsulosin 0.4 mg PO HS 03/07/18 05/12/18 History vitamin E 400 unit PO QAM 03/07/18 05/12/18 History carvedilol 6.25 mg PO BID 04/26/18 05/12/18 History docusate sodium [Colace] 100 mg PO BID #60 cap 04/26/18 05/12/18 Rx nitrofurantoin monohyd/m-cryst 100 mg PO BID 04/26/18 05/12/18 History oxycodone 5 mg PO Q6 PRN 04/26/18 05/12/18 History Past Med/Surg History Medical History Sleep apnea (Chronic) Benign prostatic hypertrophy (Chronic) Abdominal hernia History of intestinal obstruction Right facial numbness (Resolved 09/27/13) CVA (cerebral vascular accident) (Resolved) Accidental overdose (Resolved) Near syncope (Resolved) Colitis Diarrhea (Resolved) Septic shock Dementia Depression Hyperlipidemia Hypertension Hypothyroid IRVING on CPAP Colon cancer (Resolved) Lung cancer (Resolved) Constipation (Inactive) Surgical History History of lobectomy of lung right, partial History of partial colectomy Social History marital status: Current Living Situation: Spouse Feels Safe at Home: Yes Smoking Status: Former smoker Hx Alcohol Use: Yes (social) Hx Substance Use: No Preferred Language: Telugu Review of Systems All systems reviewed & are unremarkable except as noted in HPI & below Physical Exam 2 Vital Signs (Past 24 Hours): Last Vital Signs Temp 36.6 C 05/12/18 01:27 Pulse 93 H 05/12/18 02:03 Resp 13 05/12/18 02:03 BP 110/69 05/12/18 02:03 Pulse Ox 95 05/12/18 02:03 Physical Exam: General: patient resting comfortably, NAD, non-toxic in appearance, AA&O x 4 Skin: warm, dry, intact, no rashes or lesions HEENT: NC/AT, PERRL, EOMI, anicteric sclera, conjunctiva without injection, external ear normal to inspection and nontender, nares patent, moist mucus membranes, dentition intact, no oropharyngeal lesions, neck supple, trachea midline, no LAD, no thyromegaly, no JVD Heart: +S1/S2, regular, soft heart sounds, no m/r/g, no chest wall tenderness Lungs: equal air entry bilaterally, no rales/rhonchi/wheezes Abd: +BS, soft, NT/ND, no masses/organomegaly/ascites Ext: warm, 2+ pulses in UE/LE bilaterally, no clubbing/cyanosis or edema Neuro: nonfocal, patient AA&O x 4, speech intact, no facial droop, moving all extremities on command with equal strength 5/5 Results & Data Laboratory Results Lab Results 05/12/18 05/12/18 05/12/18 Range/Units 01:20 01:20 01:27 WBC 8.04 (4.8-10.8) K/uL RBC 4.15 L (4.7-6.1) M/uL Hgb 13.1 L (14.0-18.0) g/dL POC Hgb 13.3 L (14.0-18.0) g/dl Hct 40.2 L (42-52) % POC Hct 39 L (42-52) % MCV 96.9 (80-100) fL MCH 31.6 (25-34) pg MCHC 32.6 (32-36) g/dL RDW Std Deviation 52.6 H (36.4-46.3) fL RDW Coeff of Izabella 14.9 H (11.5-14.5) % Plt Count 179 (130-400) K/uL MPV 12.1 H (7.4-10.4) fL Immature Gran % (Auto) 0.2 % Neut % (Auto) 65.6 % Lymph % (Auto) 19.9 % Montgomery % (Auto) 9.3 % Eos % (Auto) 4.0 % Baso % (Auto) 1.0 % Immature Gran # (Auto) 0.02 (0.00-0.02) K/uL Neut # (Auto) 5.27 (1.4-6.5) K/uL Lymph # (Auto) 1.60 (1.2-3.4) K/uL Montgomery # (Auto) 0.75 H (0.11-0.59) K/uL Eos # (Auto) 0.32 (0-0.5) K/uL Baso # (Auto) 0.08 (0-0.2) K/uL POC D-Dimer (0-450) ng/mlFEU POC Sodium 145 H (135-144) mEq/L Sodium 145 (136-145) mmol/L POC Potassium 4.0 (3.3-5.0) mEq/L Potassium 4.0 (3.5-5.1) mmol/L POC Chloride 104 (101-112) mEq/L Chloride 110 H (98-107) mmol/L Carbon Dioxide 31 (21-32) mmol/L POC Total CO2 28 (24-31) mEq/l Anion Gap 4.0 (3-11) POC Anion Gap 17.0 (16-25) mmol/L POC BUN 17 (7-18) mg/dl BUN 17 (7-18) mg/dl Creatinine 1.22 (0.6-1.4) mg/dl POC Creatinine 1.1 (0.6-1.3) mg/dl Est Cr Clr Drug Dosing 58.7 ml/min Est GFR ( Amer) 63.6 Est GFR (Non-Af Amer) 54.9 BUN/Creatinine Ratio 14.0 (10-20) Glucose 101 H (70-99) mg/dl POC Glucose (other) 102 H (70-99) mg/dl Calcium 8.4 L (8.5-10.1) mg/dl POC Ioniz Calcium Clemente 1.20 (1.12-1.32) mmol/l Total Bilirubin 0.5 (0.2-1) mg/dl AST 14 L (15-37) U/L ALT 16 (12-78) U/L Alkaline Phosphatase 75 (45-117) U/L Total Creatine Kinase 84 (39-308) U/L CK-MB (CK-2) 4.8 H (0.5-3.6) ng/ml CK/CKMB % Calc 5.7 H (0-3.0) Troponin I < 0.015 (0-0.045) ng/ml Total Protein 6.5 (6.4-8.2) gm/dl Albumin 3.2 L (3.4-5.0) gm/dl Globulin 3.3 (2.5-4.0) gm/dl Albumin/Globulin Ratio 1.0 (0.9-2) Lipase 76 (73-393) U/L 05/12/18 Range/Units 01:29 WBC (4.8-10.8) K/uL RBC (4.7-6.1) M/uL Hgb (14.0-18.0) g/dL POC Hgb (14.0-18.0) g/dl Hct (42-52) % POC Hct (42-52) % MCV (80-100) fL MCH (25-34) pg MCHC (32-36) g/dL RDW Std Deviation (36.4-46.3) fL RDW Coeff of Izabella (11.5-14.5) % Plt Count (130-400) K/uL MPV (7.4-10.4) fL Immature Gran % (Auto) % Neut % (Auto) % Lymph % (Auto) % [place] % (Auto) % Eos % (Auto) % Baso % (Auto) % Immature Gran # (Auto) (0.00-0.02) K/uL Neut # (Auto) (1.4-6.5) K/uL Lymph # (Auto) (1.2-3.4) K/uL Montgomery # (Auto) (0.11-0.59) K/uL Eos # (Auto) (0-0.5) K/uL Baso # (Auto) (0-0.2) K/uL POC D-Dimer 301 (0-450) ng/mlFEU POC Sodium (135-144) mEq/L Sodium (136-145) mmol/L POC Potassium (3.3-5.0) mEq/L Potassium (3.5-5.1) mmol/L POC Chloride (101-112) mEq/L Chloride (98-107) mmol/L Carbon Dioxide (21-32) mmol/L POC Total CO2 (24-31) mEq/l Anion Gap (3-11) POC Anion Gap (16-25) mmol/L POC BUN (7-18) mg/dl BUN (7-18) mg/dl Creatinine (0.6-1.4) mg/dl POC Creatinine (0.6-1.3) mg/dl Est Cr Clr Drug Dosing ml/min Est GFR ( Amer) Est GFR (Non-Af Amer) BUN/Creatinine Ratio (10-20) Glucose (70-99) mg/dl POC Glucose (other) (70-99) mg/dl Calcium (8.5-10.1) mg/dl POC Ioniz Calcium Clemente (1.12-1.32) mmol/l Total Bilirubin (0.2-1) mg/dl AST (15-37) U/L ALT (12-78) U/L Alkaline Phosphatase (45-117) U/L Total Creatine Kinase (39-308) U/L CK-MB (CK-2) (0.5-3.6) ng/ml CK/CKMB % Calc (0-3.0) Troponin I (0-0.045) ng/ml Total Protein (6.4-8.2) gm/dl Albumin (3.4-5.0) gm/dl Globulin (2.5-4.0) gm/dl Albumin/Globulin Ratio (0.9-2) Lipase (73-393) U/L Diagnostic Findings CXR appears to have granulomatous disease. Fullness in the right hilum ECG Additional Comments: The study shows ST at 101bpm, with 1st degree AV block, ME= 224, FNA=334 with LBB morphology, HPu=202. LBB present on EKG from Apr 25, 2018. Overall appears unchanged form prior Code Status & VTE Plan Code Status full Critical Care Time Critical Care Time: No _ (1) Chest pain Chest pain type: unspecified Ischemic chest pain type: Qualified Code(s): R07.9 - Chest pain, unspecified (2) Benign prostatic hypertrophy Lower urinary tract symptom presence: symptoms absent Qualified Code(s): N40.0 - Benign prostatic hyperplasia without lower urinary tract symptoms (3) Hypertension Hypertension type: essential hypertension Qualified Code(s): I10 - Essential (primary) hypertension (4) Hyperlipidemia Hyperlipidemia type: unspecified Qualified Code(s): E78.5 - Hyperlipidemia, unspecified (5) Hypothyroid Hypothyroidism type: unspecified Qualified Code(s): E03.9 - Hypothyroidism, unspecified
--- NOTE | 2018-05-12 03:03 | Emergency Department Note ---
Entered by Allen Carlos acting as a scribe for Sterling Duffy MD History of Present Illness General Chief complaint: Chest Pain Time Seen by Provider: 05/12/18 01:17 Source: patient and other (Nurse) Mode of arrival: EMS History of Present Illness Onset (ago): unknown (Tonight) Location: chest Pain Consistency: + intermittent Maximum Pain Intensity: 10 Current Pain Intensity: 0 Quality: + sharp Relieved By: + other (Nitro) Treatments prior to arrival: aspirin and other (Nitro) The patient is a 82 year old male who presents to the ED via EMS due to complaints of intermittent sharp chest pain that began tonight upon waking up from sleep. Nurse states that the patients pain was a 10/10 upon arrival and the patient was administered four sprays of Nitro and Aspirin en route to the ER. Patient states his pain has resolved since coming to the ER. He denies a history of cardiac problems. Patients PCP is Dr. Cisse. Home Medications Home Medications Medication Instructions Recorded Confirmed Type aspirin [Aspir-81] 81 mg PO QAM 03/07/18 05/12/18 History atorvastatin 20 mg PO HS 03/07/18 05/12/18 History bupropion HCl 150 mg PO QAM 03/07/18 05/12/18 History cholecalciferol (vitamin D3) 1,000 unit PO QAM 03/07/18 05/12/18 History donepezil 5 mg PO HS 03/07/18 05/12/18 History finasteride 5 mg PO QAM 03/07/18 05/12/18 History gabapentin 600 mg PO BID 03/07/18 05/12/18 History levothyroxine 112 mcg PO QAM 03/07/18 05/12/18 History lisinopril 40 mg PO QAM 03/07/18 05/12/18 History pantoprazole 40 mg PO QAM 03/07/18 05/12/18 History quetiapine 12.5 mg PO HS 03/07/18 05/12/18 History tamsulosin 0.4 mg PO HS 03/07/18 05/12/18 History vitamin E 400 unit PO QAM 03/07/18 05/12/18 History carvedilol 6.25 mg PO BID 04/26/18 05/12/18 History docusate sodium [Colace] 100 mg PO BID #60 cap 04/26/18 05/12/18 Rx nitrofurantoin monohyd/m-cryst 100 mg PO BID 04/26/18 05/12/18 History oxycodone 5 mg PO Q6 PRN 04/26/18 05/12/18 History Allergies Allergy/AdvReac Type Severity Reaction Status Date / Time lactose AdvReac Mild LACTOSE Verified 05/12/18 02:30 INTOLERANCE-GI UPSET Past Med/Surg History Medical History Sleep apnea (Chronic) Benign prostatic hypertrophy (Chronic) Abdominal hernia History of intestinal obstruction Right facial numbness (Resolved 09/27/13) CVA (cerebral vascular accident) (Resolved) Accidental overdose (Resolved) Near syncope (Resolved) Colitis Diarrhea (Resolved) Septic shock Dementia Depression Hyperlipidemia Hypertension Hypothyroid IRVING on CPAP Colon cancer (Resolved) Lung cancer (Resolved) Constipation (Inactive) Surgical History History of lobectomy of lung right, partial History of partial colectomy Social History marital status: Current Living Situation: Spouse Other Information That Helps Us Care for You: No Feels Safe at Home: Yes Safety Concerns: Feels Safe At This Time Smoking Status: Former smoker Do You Dip or Chew Tobacco: No Second Hand Exposure: No Tobacco Cessation Education Requested by Patient: No Hx Alcohol Use: No Hx Substance Use: No Beliefs That Will Affect Care: None Preferred Language: Latvian Communication Ability: Effective 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 and A total of 10 systems reviewed and were otherwise negative Physical Exam Vital Signs Vital Signs - 24 hr 05/12/18 01:27 05/12/18 01:46 05/12/18 02:03 Temperature 36.6 C Temperature Source Oral Sepsis Recent Fever Within 48 Hours No Sepsis Action Taken by Nursing No Action Required Pulse Rate 100 H 92 H 93 H Pulse Rate [Apical] Pulse Rhythm Regular Pulse Strength Normal Respiratory Rate 18 17 13 Respiratory Effort / Characteristics Non-Labored Respiratory Depth Normal Respiratory Pattern Regular Blood Pressure 111/73 122/72 110/69 Blood Pressure [Left Arm] Blood Pressure [Left Radial Artery] Blood Pressure Mean 85 88 82 Blood Pressure Mean [Left Arm] Blood Pressure Mean [Left Radial Artery] Blood Pressure Position Lying Pulse Oximetry 94 94 95 Oxygen Delivery Method Room Air 05/12/18 02:15 05/12/18 02:30 05/12/18 02:46 Temperature Temperature Source Sepsis Recent Fever Within 48 Hours Sepsis Action Taken by Nursing Pulse Rate 87 88 86 Pulse Rate [Apical] Pulse Rhythm Pulse Strength Respiratory Rate 16 15 13 Respiratory Effort / Characteristics Respiratory Depth Respiratory Pattern Blood Pressure 119/73 95/78 L 119/78 Blood Pressure [Left Arm] Blood Pressure [Left Radial Artery] Blood Pressure Mean 88 83 91 Blood Pressure Mean [Left Arm] Blood Pressure Mean [Left Radial Artery] Blood Pressure Position Pulse Oximetry 95 97 95 Oxygen Delivery Method 05/12/18 03:01 05/12/18 03:45 Temperature 36.5 C Temperature Source Oral Sepsis Recent Fever Within 48 Hours Sepsis Action Taken by Nursing Pulse Rate 86 Pulse Rate [Apical] 81 Pulse Rhythm Pulse Strength Respiratory Rate 8 L 20 Respiratory Effort / Characteristics Non-Labored Spontaneous Respiratory Depth Normal Respiratory Pattern Agonal Blood Pressure 111/84 Blood Pressure [Left Arm] 121/84 Blood Pressure [Left Radial Artery] 121/84 Blood Pressure Mean 93 Blood Pressure Mean [Left Arm] 96 Blood Pressure Mean [Left Radial Artery] 96 Blood Pressure Position Pulse Oximetry 96 Oxygen Delivery Method Room Air GENERAL: Patient is a healthy-appearing well-nourished male HEAD: Normocephalic atraumatic EYES: Ocular movements intact pupils equal and react to light OROPHARYNX mucous membranes are moist no exudates present no erythema or edema present NECK: Supple no nuchal rigidity CHEST: Good equal expansion LUNGS: Clear and equal to auscultation CARDIAC: Normal S1 and S2 ABDOMEN: Soft nontender no guarding BACK: No CVA tenderness EXTREMITIES: No pain upon palpation normal muscle strength in all groups no clubbing cyanosis or edema NEURO: Patient is following commands is answering questions appropriately. Alert and oriented x3 Cranial Nerves 2-12 grossly intact Course 0116: Past medical records reviewed. The patient was evaluated in room B3B, and a complete history and physical examination were performed. 0224: Upon reevaluation, the patient will be further evaluated. I updated the patient on his treatment plan and findings. Patient is agreeable to the treatment plan. Patient will be assessed for further evaluation. Consultations Consultation #1: I reviewed the patient's case with Dr. Gibbs who will evaluate the patient for further management. Time: 02:11 Administered Medications Discontinued Medications Nitroglycerin (Nitro-Bid 2%) 1 inch EXT NOW STA Stop: 05/12/18 01:28 Last Admin: 05/12/18 01:46 Dose: 1 inch Medical Decision Making Differential Diagnosis Differential diagnosis: Etiologies such as shingles, musculoskeletal pain, pericarditis, myocarditis, cardiac ischemia, pericardial tamponade, pneumonia, pneumothorax, pleural effusion, hemothorax, pleurisy, aortic pathology, pulmonary embolism, intra- abdominal process, as well as others were considered. Medical Records Attestation: I reviewed the patient's medical records. Home Medications Current Medication List: was personally reviewed by me Laboratory Data Attestation: I reviewed the patient's lab results. Result diagrams: 05/12/18 01:20 05/12/18 01:20 Lab Results 05/12/18 05/12/18 05/12/18 Range/Units 01:20 01:20 01:27 WBC 8.04 (4.8-10.8) K/uL RBC 4.15 L (4.7-6.1) M/uL Hgb 13.1 L (14.0-18.0) g/dL POC Hgb 13.3 L (14.0-18.0) g/dl Hct 40.2 L (42-52) % POC Hct 39 L (42-52) % MCV 96.9 (80-100) fL MCH 31.6 (25-34) pg MCHC 32.6 (32-36) g/dL RDW Std Deviation 52.6 H (36.4-46.3) fL RDW Coeff of Izabella 14.9 H (11.5-14.5) % Plt Count 179 (130-400) K/uL MPV 12.1 H (7.4-10.4) fL Immature Gran % (Auto) 0.2 % Neut % (Auto) 65.6 % Lymph % (Auto) 19.9 % Reeves % (Auto) 9.3 % Eos % (Auto) 4.0 % Baso % (Auto) 1.0 % Immature Gran # (Auto) 0.02 (0.00-0.02) K/uL Neut # (Auto) 5.27 (1.4-6.5) K/uL Lymph # (Auto) 1.60 (1.2-3.4) K/uL Reeves # (Auto) 0.75 H (0.11-0.59) K/uL Eos # (Auto) 0.32 (0-0.5) K/uL Baso # (Auto) 0.08 (0-0.2) K/uL PT (9.0-12.0) Seconds INR (0.9-1.1) POC D-Dimer (0-450) ng/mlFEU POC Sodium 145 H (135-144) mEq/L Sodium 145 (136-145) mmol/L POC Potassium 4.0 (3.3-5.0) mEq/L Potassium 4.0 (3.5-5.1) mmol/L POC Chloride 104 (101-112) mEq/L Chloride 110 H (98-107) mmol/L Carbon Dioxide 31 (21-32) mmol/L POC Total CO2 28 (24-31) mEq/l Anion Gap 4.0 (3-11) POC Anion Gap 17.0 (16-25) mmol/L POC BUN 17 (7-18) mg/dl BUN 17 (7-18) mg/dl Creatinine 1.22 (0.6-1.4) mg/dl POC Creatinine 1.1 (0.6-1.3) mg/dl Est Cr Clr Drug Dosing 58.7 ml/min Est GFR ( Amer) 63.6 Est GFR (Non-Af Amer) 54.9 BUN/Creatinine Ratio 14.0 (10-20) Glucose 101 H (70-99) mg/dl POC Glucose (other) 102 H (70-99) mg/dl Calcium 8.4 L (8.5-10.1) mg/dl POC Ioniz Calcium Clemente 1.20 (1.12-1.32) mmol/l Phosphorus 2.9 (2.5-4.9) mg/dl Magnesium 1.7 L (1.8-2.4) mg/dl Total Bilirubin 0.5 (0.2-1) mg/dl AST 14 L (15-37) U/L ALT 16 (12-78) U/L Alkaline Phosphatase 75 (45-117) U/L Total Creatine Kinase 84 (39-308) U/L CK-MB (CK-2) 4.8 H (0.5-3.6) ng/ml CK/CKMB % Calc 5.7 H (0-3.0) Troponin I < 0.015 (0-0.045) ng/ml Total Protein 6.5 (6.4-8.2) gm/dl Albumin 3.2 L (3.4-5.0) gm/dl Globulin 3.3 (2.5-4.0) gm/dl Albumin/Globulin Ratio 1.0 (0.9-2) Lipase 76 (73-393) U/L TSH 1.460 (0.300-4.500) uIu/ml 05/12/18 05/12/18 Range/Units 01:29 01:30 WBC (4.8-10.8) K/uL RBC (4.7-6.1) M/uL Hgb (14.0-18.0) g/dL POC Hgb (14.0-18.0) g/dl Hct (42-52) % POC Hct (42-52) % MCV (80-100) fL MCH (25-34) pg MCHC (32-36) g/dL RDW Std Deviation (36.4-46.3) fL RDW Coeff of Izabella (11.5-14.5) % Plt Count (130-400) K/uL MPV (7.4-10.4) fL Immature Gran % (Auto) % Neut % (Auto) % Lymph % (Auto) % Reeves % (Auto) % Eos % (Auto) % Baso % (Auto) % Immature Gran # (Auto) (0.00-0.02) K/uL Neut # (Auto) (1.4-6.5) K/uL Lymph # (Auto) (1.2-3.4) K/uL Reeves # (Auto) (0.11-0.59) K/uL Eos # (Auto) (0-0.5) K/uL Baso # (Auto) (0-0.2) K/uL PT 11.5 (9.0-12.0) Seconds INR 1.1 (0.9-1.1) POC D-Dimer 301 (0-450) ng/mlFEU POC Sodium (135-144) mEq/L Sodium (136-145) mmol/L POC Potassium (3.3-5.0) mEq/L Potassium (3.5-5.1) mmol/L POC Chloride (101-112) mEq/L Chloride (98-107) mmol/L Carbon Dioxide (21-32) mmol/L POC Total CO2 (24-31) mEq/l Anion Gap (3-11) POC Anion Gap (16-25) mmol/L POC BUN (7-18) mg/dl BUN (7-18) mg/dl Creatinine (0.6-1.4) mg/dl POC Creatinine (0.6-1.3) mg/dl Est Cr Clr Drug Dosing ml/min Est GFR ( Amer) Est GFR (Non-Af Amer) BUN/Creatinine Ratio (10-20) Glucose (70-99) mg/dl POC Glucose (other) (70-99) mg/dl Calcium (8.5-10.1) mg/dl POC Ioniz Calcium Clemente (1.12-1.32) mmol/l Phosphorus (2.5-4.9) mg/dl Magnesium (1.8-2.4) mg/dl Total Bilirubin (0.2-1) mg/dl AST (15-37) U/L ALT (12-78) U/L Alkaline Phosphatase (45-117) U/L Total Creatine Kinase (39-308) U/L CK-MB (CK-2) (0.5-3.6) ng/ml CK/CKMB % Calc (0-3.0) Troponin I (0-0.045) ng/ml Total Protein (6.4-8.2) gm/dl Albumin (3.4-5.0) gm/dl Globulin (2.5-4.0) gm/dl Albumin/Globulin Ratio (0.9-2) Lipase (73-393) U/L TSH (0.300-4.500) uIu/ml Imaging Data Attestation: I personally reviewed and interpreted this imaging study as follows : My Impression: 1 view chest x-ray was interpreted by me shows no evidence of pneumonia, congestion, or pneumothorax. ECG Data Attestation: I personally reviewed and interpreted this ECG as follows: Indication: chest pain Rate (beats per minute): 101 Rhythm: sinus tachycardia Findings: + 1st degree AV block and + LBBB Comparison ECG Date: from (04/25/18) Change: the following changes noted (LBBB old compared to previous otherwise unchanged) Blood Pressure Blood Pressure Findings: Normal blood pressure Blood Pressure Disposition: did not require urgent referral MDM Narrative This is a 82-year-old male who presents emergency department complaining of chest pain. The patient was given Nitropaste for his chest pain. Due to the patient's complex medical history as well as the fact that he has an elevation in his MB and the nitro took the pain away I did discuss the case with the hospitalist service who agreed to admit the patient. Patient does have a left bundle branch block on his EKG which is old. Impression & Plan Chest pain Discharge Plan Visit Data *Final* Discharge Date/Time: 05/12/18 03:12 Chief Complaint: Chest Pain ED Provider: Sterling Duffy Discharge Problem: Chest pain Patient Disposition: Admitted As Inpatient Discharge Instructions Interventions: ED Discharge Assessment Last Done: 05/12/18 03:12 The scribe's documentation has been prepared under my direction and personally reviewed by me in its entirety. I confirm that the note above accurately reflects all work, treatment, procedures, and medical decision making performed by me.
[2018-05-12] MEDS ORDERED: ACETAMINOPHEN 325 MG TAB PO PRN (03:57)
[2018-05-12] MEDS ORDERED: MoRPHine SULFATE 4 MG/ML 1 ML CARP\\VIAL IV PRN (03:57)
[2018-05-12] MEDS ORDERED: ONDANSETRON INJ 2 MG/ML 2 ML VIAL IV PRN (03:57)
[2018-05-12 04:19] LABS: INR 1.1 (0.9-1.1); Prothrombin Time 11.5 Seconds (9.0-12.0)
[2018-05-12 04:21] LABS: Magnesium 1.7 mg/dl (1.8-2.4); Phosphorus 2.9 mg/dl (2.5-4.9)
[2018-05-12] MEDS: NITROGLYCERIN SL 0.4 MG/TAB TAB SL PRN ×3 (06:10→06:23)
--- NOTE | 2018-05-12 06:36 | XRay Report ---
XR chest 1V portable HISTORY: 82 years-old Male Chest Pain acute atypical chest pain COMPARISON: Chest radiograph 04/25/2018, chest CT 01/18/2017 TECHNIQUE: Portable AP view of the chest FINDINGS: Cardiac silhouette is mildly enlarged, unchanged. Additionally, there is mild widening of the mediast inum. Calcified mediastinal and hilar lymph nodes redemonstrated compatible with prior granulomatous disease. Chronic right hemidiaphragmatic elevation. Subsegmental left basilar opacities suggest atele ctasis/scarring. There is no pneumothorax, large pleural effusion or overt pulmonary edema. Multiple healed remote right-sided rib fractures. Degenerative changes of the shoulders and spine. Prior caitie cystectomy. IMPRESSION: 1. Subsegmental left basilar atelectasis/scarring without acute process. 2. Chronic right hemidiaphragmatic elevation. 3. Prior granulomatous disease. The above report was generated using voice recognition software. It may contain grammatical, syntax o r spelling errors. Electronically signed by: Jez Dhaliwal M.D. 05/12/2018 6:35 AM
[2018-05-12] MEDS: LEVOTHYROXINE SODIUM 112 MCG TABLET PO SCH (07:17)
[2018-05-12] MEDS ORDERED: MAGNESIUM SULFATE / D5W 1 GM/100 ML BAG IV ONE (09:08)
--- NOTE | 2018-05-12 09:11 | Hospitalist Progress Note ---
Date of Service May 12, 2018 Assessment & Plan (1) Chest pain: atypical chest pain. Troponin negative, EKG with stable LBBB. Patient CP free with Nitropatch in place -Check 2D echocardiogram -continue ASA, Atorvastatin, Carvedilol, Lisinopril -Nitro and Morphine PRN consider stress testing for risk stratification but with LBBB may need nuclear testing (2) Hypertension: Blood pressure presently stable -Continue Lisinopril, Carvedilol (3) Hyperlipidemia: Stable. Chronic -Contnue Atorvastatin. If ACS will increase dosage (4) Benign prostatic hypertrophy: Stable. No symptoms -Continue Finasteride -Continue Tamsulosin (5) Hypothyroid: Check TSH with AM labs -Continue Sythroid (6) Cognitive impairment: Patient is AA&O x 4, appropriate -Continue Aricept -Continue Seroquel -Continue Vitamin E -Delirium prevention with frequent orientation and ambulation (7) IRVING on CPAP: CPAP qhS F/E/N - heplock. Electrolytes WNL, monitor. NPO for now Ppx - Lovenox. Continue home Protonix Code -Full DIspo - Obs to PCU Subjective He has had no further discomfort since being admitted he does however relate that his discomfort was fairly significant. Has been fairly sedentary and encouraged him to ambulate in the unit. We have scheduled him for a nuclear stress test on 05/13 Review of Systems ROS: well nourished well developed. No double vision blurry vision No problems with speech or swallowing No palpitations, no additional chest pain since presentation No Wheezing or breathing issues No abdominal pain nausea vomiting diarrhea changes in appetite or weight No burning urine urine frequency or changes in color No focal joint pain or muscle pain No skin rashes or oral lesions No unusual bruising or bleeding No focused back pain or numbness or loss of strength No changes in memory or confusion Physical Exam 2 Vital Signs (Past 24 Hours): Last Vital Signs Temp 36.4 C L 05/12/18 07:09 Pulse 77 05/12/18 07:09 Resp 17 05/12/18 07:09 BP 101/58 L 05/12/18 07:09 Pulse Ox 94 05/12/18 07:09 The patient appeared well nourished and normally developed. Vital signs as documented. Head exam is unremarkable. normocephalic, atraumatic Neck is without jugular venous distension, thyromegaly, or lymphademopathy Lungs are clear to auscultation and percussion. Cardiac exam reveals Rhythm is regular. First and second heart sounds normal. Abdominal exam reveals normal bowel sounds, no masses, no organomegaly Extremities are nonedematous and both pedal pulses are present Neurologic exam is A&Ox3, no focal deficits, strength is equal bilateral Psychologically seems neither anxious or depressed Skin is warm Dry without bruises or lesions _ (1) Benign prostatic hypertrophy Lower urinary tract symptom detail: Lower urinary tract symptom presence: symptoms absent Qualified Code(s): N40.0 - Benign prostatic hyperplasia without lower urinary tract symptoms (2) Hyperlipidemia Hyperlipidemia type: unspecified Qualified Code(s): E78.5 - Hyperlipidemia, unspecified (3) Hypothyroid Hypothyroidism type: unspecified Qualified Code(s): E03.9 - Hypothyroidism, unspecified (4) Chest pain Chest pain type: unspecified Ischemic chest pain type: Qualified Code(s): R07.9 - Chest pain, unspecified (5) Hypertension Hypertension type: essential hypertension Qualified Code(s): I10 - Essential (primary) hypertension
[2018-05-12] MEDS: BuPROPion XL 150 MG TABCR PO SCH (09:15)
[2018-05-12] MEDS: PANTOprazole 40 MG TAB PO SCH (09:15)
[2018-05-12] MEDS: DOCUSATE SODIUM 100 MG CAP PO SCH ×2 (09:15→20:45)
[2018-05-12] MEDS: GABAPENTIN 600 MG TAB PO SCH ×2 (09:15→20:46)
[2018-05-12] MEDS: ASPIRIN 81 MG ECTAB PO SCH (09:15)
[2018-05-12] MEDS: LISINOPRIL 40 MG TAB PO SCH (09:16)
[2018-05-12] MEDS: ENOXAPARIN INJ 40 MG/0.4 ML SYR SQ SCH (09:16)
[2018-05-12] MEDS: CARVEDILOL 6.25 MG TAB PO SCH ×2 (09:16→20:46)
[2018-05-12] MEDS: TOCOPHERYL, DL-ALPHA 400 UNITS CAP PO SCH (09:16)
[2018-05-12] MEDS: FINASTERIDE 5 MG TAB PO SCH (09:16)
[2018-05-12] MEDS: DONEPEZIL HCL 5 MG TAB PO SCH (20:45)
[2018-05-12] MEDS: QUETIAPINE FUMARATE 25 MG TABLET PO SCH (20:45)
[2018-05-12] MEDS: ATORVASTATIN 20 MG TAB PO SCH (20:46)
[2018-05-12] MEDS: TAMSULOSIN HCL 0.4 MG CAP PO SCH (20:46)
[2018-05-13] MEDS: LEVOTHYROXINE SODIUM 112 MCG TABLET PO SCH (06:26)
[2018-05-13] MEDS ORDERED: REGADENOSON 0.4 MG/5 ML SYR IV ONE (07:51)
--- NOTE | 2018-05-13 11:41 | Myocardial Perfusion Study ---
Date of Service May 13, 2018 Myocardial Perfusion Study [facility] Myocardial Perfusion Study Report Procedure: 1. Myocardial perfusion study performed in multiple views/images 2. Lexiscan pharmacologic stress ECG Indications: 1. Chest pain Ordering physician: Dr. Tenorio Procedural details: For the stress portion of the study, Lexiscan 0.4 mg was intravenously administered followed by a saline flush. This was followed by 23.097 mCi of technetium 99m Cardiolite, injected at 8:35 a.m. on 05/13/2018. 30 minutes following the injection, imaging of the heart was performed in multiple projections. For the rest portion of the study, 21.1 mCi technetium 99m Cardiolite was injected intravenously at 1:25 p.m. on 05/12/2018. 1 hour following the injection, imaging of the heart was performed in the same projections. Lexiscan stress ECG: Resting ECG demonstrated: Sinus rhythm with first-degree AV block. LBBB. Maximum heart rate: 100 bpm Maximal, age-predicted heart rate: 72 % Resting blood pressure: 125/91 mmHg Maximum blood pressure: 137/[address] changes: None Arrhythmia: None Symptoms: Left chest pressure Findings: Rotating raw imaging demonstrated no significant lung uptake. There is no significant motion artifact. Heart size appeared normal. Myocardial perfusion demonstrated a large area of reduced uptake, including the base to apical inferior wall (severely reduced and fixed in post stress and rest imaging), the base to apical inferoseptal wall (severely reduced and fixed in post stress and rest imaging), the base to apical septal wall (moderately reduced and fixed in post stress and rest imaging), the base to apical anteroseptum (mildly reduced and fixed in post stress and rest imaging), the apex (moderately reduced and fixed in post stress and rest imaging), and base to distal inferolateral wall ( severely reduced and reversible on rest imaging). Ejection fraction: 54 % Wall motion: Hypokinesis involving the septum, inferior wall, and anteroseptum. No significant transient ischemic dilation. Impression: 1. Abnormal myocardial perfusion study suggesting ischemia involving the inferolateral wall. 2. Fixed defects involving the apex, anteroseptum, septum, inferoseptum, and inferior wall segments may represent infarct. Septal portions could also represent bundle-branch block artifact. 3. Lexiscan induced chest pain. 4. Normal left ventricular systolic function. EF 54%. 5. Indeterminate Lexiscan ECG due to LBBB.
[2018-05-13] MEDS: ENOXAPARIN INJ 40 MG/0.4 ML SYR SQ SCH (12:18)
[2018-05-13] MEDS: TOCOPHERYL, DL-ALPHA 400 UNITS CAP PO SCH (12:19)
[2018-05-13] MEDS: LISINOPRIL 40 MG TAB PO SCH (12:19)
[2018-05-13] MEDS: BuPROPion XL 150 MG TABCR PO SCH (12:19)
[2018-05-13] MEDS: ASPIRIN 81 MG ECTAB PO SCH (12:20)
[2018-05-13] MEDS: PANTOprazole 40 MG TAB PO SCH (12:20)
[2018-05-13] MEDS: FINASTERIDE 5 MG TAB PO SCH (12:20)
[2018-05-13] MEDS: CARVEDILOL 6.25 MG TAB PO SCH ×2 (12:20→20:20)
[2018-05-13] MEDS: GABAPENTIN 600 MG TAB PO SCH ×2 (12:20→20:19)
[2018-05-13] MEDS: DOCUSATE SODIUM 100 MG CAP PO SCH ×2 (12:21→20:20)
--- NOTE | 2018-05-13 16:47 | Cardiology Consultation ---
Date of Consultation May 13, 2018 Assessment & Plan (1) Chest pain: Pt presented with complaints of chest pain that resolved s/p nitro. Pt has not has similar syx since admission, negative labs, and a questionable stress test. -Nuclear Stress test demonstrated -Abnormal myocardial perfusion study suggesting ischemia involving the inferolateral wall. -Fixed defects involving the apex, anteroseptum, septum, inferoseptum, and inferior wall segments may represent infarct. Septal portions could also represent bundle-branch block artifact. -Normal left ventricular systolic function. EF 54%. -Indeterminate Lexiscan ECG due to LBBB. -Will schedule for Diagnostic Heart Cath, discussed risks, benefits and alternatives extensively with the patient and his . (2) Hyperlipidemia: Tolerating home meds -Continue home meds (3) Hypertension: Has been normotensive since admission continue home regimen. -Continue Lisinopril, Carvedilol Supervising Physician Co-Signing Physician Notes Cardiology attending addendum: This is a family practice resident note. Please refer to cardiology consultation under separate cover. History of Present Illness Reason for Consultation: Hx Chest Pain Requesting Physician: Allen Tenorio MD Attending Physician: Allen Tenorio MD History of Present Illness Pt is an 82 year old male with a pmhx of HTN, HLP, right lung ca s/p resecetion , prior CVA who presented to [facility] ED around 3 am on 05/12 s/p episode of 10/10 chest pain just below left his nipple. He described the pain as sharp and stabbing and knocked the breathe out of him. He denied chest pressure, chest tightness, funny feeling in his left arm, diaphoresis, Nausea, vomiting. He also stated he had never experienced syx like this before. [facility] gave him multiple doses of Nitro leading to relief of his syx. He was admitted to [facility], Troponins obtained and were negative, ck-mb a touch elevated at 4.8. Today the patient underwent a nuclear stress test. He described a tiny amount of chest pressure at the beginning of the procedure, but only after being prompted by a nurse who asked if he felt like an elephant was sitting on his chest. Otherwise he firmly denied all symptoms. Pt lives at home with his and relayed concerns for her cardiac health. Pt can [place] the [place] issue and denies orthopnea. Allergies Allergy/AdvReac Type Severity Reaction Status Date / Time lactose AdvReac Mild LACTOSE Verified 05/12/18 02:30 INTOLERANCE-GI UPSET Home Medications Home Medications Medication Instructions Recorded Confirmed Type aspirin [Aspir-81] 81 mg PO QAM 03/07/18 05/12/18 History atorvastatin 20 mg PO HS 03/07/18 05/12/18 History bupropion HCl 150 mg PO QAM 03/07/18 05/12/18 History cholecalciferol (vitamin D3) 1,000 unit PO QAM 03/07/18 05/12/18 History donepezil 5 mg PO HS 03/07/18 05/12/18 History finasteride 5 mg PO QAM 03/07/18 05/12/18 History gabapentin 600 mg PO BID 03/07/18 05/12/18 History levothyroxine 112 mcg PO QAM 03/07/18 05/12/18 History lisinopril 40 mg PO QAM 03/07/18 05/12/18 History pantoprazole 40 mg PO QAM 03/07/18 05/12/18 History quetiapine 12.5 mg PO HS 03/07/18 05/12/18 History tamsulosin 0.4 mg PO HS 03/07/18 05/12/18 History vitamin E 400 unit PO QAM 03/07/18 05/12/18 History carvedilol 6.25 mg PO BID 04/26/18 05/12/18 History docusate sodium [Colace] 100 mg PO BID #60 cap 04/26/18 05/12/18 Rx nitrofurantoin monohyd/m-cryst 100 mg PO BID 04/26/18 05/12/18 History oxycodone 5 mg PO Q6 PRN 04/26/18 05/12/18 History Patient History Medical History Sleep apnea (Chronic) Benign prostatic hypertrophy (Chronic) Abdominal hernia History of intestinal obstruction Right facial numbness (Resolved 09/27/13) CVA (cerebral vascular accident) (Resolved) Accidental overdose (Resolved) Near syncope (Resolved) Colitis Diarrhea (Resolved) Septic shock Dementia Depression Hyperlipidemia Hypertension Hypothyroid IRVING on CPAP Colon cancer (Resolved) Lung cancer (Resolved) Constipation (Inactive) Surgical History History of lobectomy of lung right, partial History of partial colectomy Family History Other Family history non-contributory Social History marital status: Current Living Situation: Spouse Other Information That Helps Us Care for You: No Feels Safe at Home: Yes Safety Concerns: Feels Safe At This Time Smoking Status: Former smoker Do You Dip or Chew Tobacco: No Second Hand Exposure: No Tobacco Cessation Education Requested by Patient: No Hx Alcohol Use: No Hx Substance Use: No Beliefs That Will Affect Care: None Preferred Language: Libyan Review of Systems !2 point review of systems is negative except as noted above. Physical Exam 2 Vital Signs (Past 24 Hours): Last Vital Signs Temp 36.7 C 05/13/18 15:54 Pulse 76 05/13/18 15:33 Resp 18 05/13/18 15:33 BP 112/75 05/13/18 15:33 Pulse Ox 96 05/13/18 15:33 Physical Exam: General: Well developed, slightly eccentric 82 year old male Neck: No bruits appreciated, negative JVD, Trachea midline Resp: CTAB/L Cards: RRR NL S1/S2 i did not appreciate any MRG, no pedal edema ABD: NL BS, soft, nontender, nondistended MSK: moves all 4 extremities, no calf pain Skin: warm well perfused, intact, cap refill<2 Neuro: AAOx3, slightly tangential thinking Results & Data Laboratory Results 05/12/18 Range/Units 20:35 Troponin I < 0.015 (0-0.045) ng/ml Medications Administered Current Inpatient Medications Acetaminophen (Tylenol) 650 mg PO Q4H PRN PRN Reason: Pain or Fever Stop: 06/11/18 03:56 Aspirin (Ecotrin Ectab) 81 mg PO QAM YARY Stop: 06/11/18 08:59 Last Admin: 05/13/18 12:20 Dose: 81 mg Atorvastatin Calcium (Lipitor) 20 mg PO HS YARY Stop: 06/11/18 20:59 Last Admin: 05/12/18 20:46 Dose: 20 mg Bupropion HCl (Wellbutrin-Xl) 150 mg PO QAM [facility] Stop: 06/11/18 08:59 Last Admin: 05/13/18 12:19 Dose: 150 mg Carvedilol (Coreg) 6.25 mg PO BID [facility] Stop: 06/11/18 08:59 Last Admin: 05/13/18 12:20 Dose: 6.25 mg Docusate Sodium (Colace) 100 mg PO BID [facility] Stop: 06/11/18 08:59 Last Admin: 05/13/18 12:21 Dose: Not Given Donepezil HCl (Aricept) 5 mg PO HS [facility] Stop: 06/11/18 20:59 Last Admin: 05/12/18 20:45 Dose: 5 mg Enoxaparin Sodium (Lovenox) 40 mg SQ Q24H [facility] Stop: 06/11/18 08:59 Last Admin: 05/13/18 12:18 Dose: 40 mg Finasteride (Proscar) 5 mg PO QAM [facility] Stop: 06/11/18 08:59 Last Admin: 05/13/18 12:20 Dose: 5 mg Gabapentin (Neurontin) 600 mg PO BID [facility] Stop: 06/11/18 08:59 Last Admin: 05/13/18 12:20 Dose: 600 mg Levothyroxine Sodium (Synthroid) 112 mcg PO DAILYBB [facility] Stop: 06/11/18 06:29 Last Admin: 05/13/18 06:26 Dose: 112 mcg [facility]op[facility]) [facility] [place] [facility]: 06/11/18 08:59 Last Admin: 05/13/18 12:19 Dose: 40 mg Morphine Sulfate (Morphine Sulfate) 2 mg IV Q30M PRN PRN Reason: Chest Pain Stop: 05/26/18 03:56 Nitroglycerin (Nitrostat) 0.4 mg SL UD PRN PRN Reason: Chest Pain Stop: 06/11/18 03:56 Last Admin: 05/12/18 06:23 Dose: 0.4 mg Ondansetron HCl (Zofran) 4 mg IV Q6H PRN PRN Reason: Nausea Stop: 06/11/18 03:56 Pantoprazole Sodium (Protonix) [facility] [place] Stop: 06/11/18 08:59 Last Admin: 05/13/18 12:20 Dose: 40 mg Quetiapine Fumarate (Seroquel) 12.5 mg PO [facility] Stop: 06/11/18 20:59 Last Admin: 05/12/18 20:45 Dose: 12.5 mg Tamsulosin HCl (Flomax) 0.4 mg PO [facility] Stop: 06/11/18 20:59 Last Admin: 05/12/18 20:46 Dose: 0.4 mg Vitamin E (Vitamin E) 400 [facility] [place] Stop: 06/11/18 08:59 Last Admin: 05/13/18 12:19 Dose: 400 units Resident Activity Tracking Resident Involvement: Resident Care Provided Care Provided: [facility] Medicine _ (1) Hyperlipidemia Hyperlipidemia type: unspecified Qualified Code(s): E78.5 - Hyperlipidemia, unspecified (2) Chest pain Chest pain type: unspecified Ischemic chest pain type: Qualified Code(s): R07.9 - Chest pain, unspecified (3) Hypertension Hypertension type: essential hypertension Qualified Code(s): I10 - Essential (primary) hypertension
--- NOTE | 2018-05-13 18:11 | Hospitalist Progress Note ---
Date of Service May 13, 2018 Assessment & Plan (1) Chest pain: atypical chest pain. Troponin negative, EKG with stable LBBB. Patient CP free with Nitropatch in place -continue ASA, Atorvastatin, Carvedilol, Lisinopril Nuclear stress test shows fixed defects with small reversible area cardiology consult pending for further evaluation and consideration of therapy (2) Hypertension: Blood pressure means controlled -Continue Lisinopril, Carvedilol (3) Hyperlipidemia: Consider increasing dose to 40 of atorvastatin. (4) Benign prostatic hypertrophy: Voiding without symptoms while taking finasteride And tamsulosin (5) Hypothyroid: Clinically stable on Sythroid (6) Cognitive impairment: Doing well on Aricept and Seroquel (7) IRVING on CPAP: CPAP qhS Ppx - Lovenox. Continue home Protonix Code -Full Subjective He has had no further discomfort since being admitted he does however relate that his discomfort was fairly significant. Nuclear stress test completed on 13 May does show some fixed defects with questionable reversible defect in the inferior lateral area. The patient has been ambulating in the unit without reproduction of his pain subsequent to the abnormal stress test we have initiated a cardiology consultation the best determine a course of action Review of Systems ROS: well nourished well developed. No double vision blurry vision No problems with speech or swallowing No palpitations, no additional chest pain or pressure No Wheezing or breathing issues No abdominal pain nausea vomiting diarrhea changes in appetite or weight No burning urine urine frequency or changes in color No focal joint pain or muscle pain No skin rashes or oral lesions No unusual bruising or bleeding No focused back pain or numbness or loss of strength No changes in memory or confusion Physical Exam 2 Vital Signs (Past 24 Hours): Last Vital Signs Temp 36.7 C 05/13/18 15:54 Pulse 76 05/13/18 15:33 Resp 18 05/13/18 15:33 BP 112/75 05/13/18 15:33 Pulse Ox 96 05/13/18 15:33 The patient appeared well nourished and normally developed. Vital signs as documented. Head exam is unremarkable. normocephalic, atraumatic Neck is without jugular venous distension, thyromegaly, or lymphademopathy Lungs are clear to auscultation and percussion. Cardiac exam reveals Rhythm is regular. First and second heart sounds normal. Abdominal exam reveals normal bowel sounds, no masses, no organomegaly Extremities are nonedematous and both pedal pulses are present Neurologic exam is A&Ox3, no focal deficits, strength is equal bilateral Psychologically seems neither anxious or depressed Skin is warm Dry without bruises or lesions _ (1) Chest pain Chest pain type: unspecified Ischemic chest pain type: Qualified Code(s): R07.9 - Chest pain, unspecified (2) Hypertension Hypertension type: essential hypertension Qualified Code(s): I10 - Essential (primary) hypertension (3) Hyperlipidemia Hyperlipidemia type: unspecified Qualified Code(s): E78.5 - Hyperlipidemia, unspecified (4) Benign prostatic hypertrophy Lower urinary tract symptom presence: symptoms absent Lower urinary tract symptom detail: Qualified Code(s): N40.0 - Benign prostatic hyperplasia without lower urinary tract symptoms (5) Hypothyroid Hypothyroidism type: unspecified Qualified Code(s): E03.9 - Hypothyroidism, unspecified
--- NOTE | 2018-05-13 19:01 | Cardiology Consultation ---
Date of Consultation May 13, 2018 Assessment & Plan (1) Abnormal nuclear stress test: He had 1 episode of chest discomfort that awakened him from sleep which possibly responded to nitroglycerin. Negative cardiac enzymes however abnormal nuclear stress with cardiac risk factors. We discussed the findings and treatment strategies such as further diagnostic evaluation with coronary angiography versus medical therapy. He prefers to undergo coronary angiography and PCI, if deemed appropriate. He was made aware that CT surgery is not available at this facility. There is no urgent indication. NPO after midnight. Continue beta-parul, aspirin, Jimmie inhibitor, and statin therapy. (2) Chest pain: No further episodes. In a sense, his chest discomfort was atypical by description but with 1 episode which may have been relieved with nitroglycerin and abnormal myocardial perfusion study, would treat as if it was related to ischemic heart disease. He prefers to undergo coronary angiography as above. Continue medical therapy. As cardiac catheterization is pending for tomorrow, will not make further changes at this time but would consider titrating beta- parul for recurrent symptoms. (3) Hypertension: Blood pressure mostly normotensive. No changes made at this time. (4) Hyperlipidemia: If he is found to have ischemic heart disease, would recommend titration of statin therapy for high-intensity statin therapy. Disposition: Plan of care discussed with Dr. Tenorio of the primary hospitalist service. Cardiology will continue to follow. Highly complex medical issues. Thank you for allowing me to participate in the care of your patient. Please call for any other questions or concerns. Sincerely, Devyn Loya M.D. History of Present Illness Reason for Consultation: Abnormal nuclear stress with chest pain Requesting Physician: Dr. Tenorio Attending Physician: Allen Tenorio MD History of Present Illness Mr. Thompson is a very pleasant 82-year-old gentleman with a history significant for hypertension and dyslipidemia who presented to [facility] with chest discomfort. He was admitted on 05/12/2018 for chest discomfort which awakened him from sleep. It was a left-sided sharp/stabbing but also felt as though a fist was hitting him in the chest type pain. There is no radiation, diaphoresis, shortness of breath, or associated nausea. He woke up his and EMS was summoned. He was administered nitroglycerin. Nitroglycerin may have helped improve his symptoms as the chest pain resolved by the time he got to the emergency department. He has been chest pain-free since then. Yesterday, he underwent echocardiogram which demonstrated normal left ventricular systolic function. ECG demonstrated left bundle-branch block. He underwent a nuclear perfusion study earlier today which suggested inferolateral ischemia but also a large area of fixed defect involving the anteroseptum, septum, inferoseptum, and inferior wall segments. He has been less active than usual the past few months secondary to the weather. Otherwise, he had been walking in the mall and also underwent other fitness activities. His acknowledges that he has memory issues at times but is able to make his own decisions and generally does well. He has bilateral lower extremity neuropathy. He has occasional diarrhea and has had issues with diverticulitis as well. He denies melena, hematochezia, hematuria, or other bleeding. He denies recent syncope, near-syncope, palpitations, or significant lower extremity edema. He did mention that in September of 2017, he was walking on the street and then found himself in the hospital with no recollection of the events that occurred between. His questions if he actually lost consciousness or not during that episode. Review of systems: As above. Review of systems otherwise negative/ unremarkable. Family history: No known premature CAD. Social history: No current tobacco abuse but former smoker. He is and lives at home with his . His , Haleigh, is present at the bedside. Allergies Allergy/AdvReac Type Severity Reaction Status Date / Time lactose AdvReac Mild LACTOSE Verified 05/12/18 02:30 INTOLERANCE-GI UPSET Home Medications Home Medications Medication Instructions Recorded Confirmed Type aspirin [Aspir-81] 81 mg PO QAM 03/07/18 05/12/18 History atorvastatin 20 mg PO HS 03/07/18 05/12/18 History bupropion HCl 150 mg PO QAM 03/07/18 05/12/18 History cholecalciferol (vitamin D3) 1,000 unit PO QAM 03/07/18 05/12/18 History donepezil 5 mg PO HS 03/07/18 05/12/18 History finasteride 5 mg PO QAM 03/07/18 05/12/18 History gabapentin 600 mg PO BID 03/07/18 05/12/18 History levothyroxine 112 mcg PO QAM 03/07/18 05/12/18 History lisinopril 40 mg PO QAM 03/07/18 05/12/18 History pantoprazole 40 mg PO QAM 03/07/18 05/12/18 History quetiapine 12.5 mg PO HS 03/07/18 05/12/18 History tamsulosin 0.4 mg PO HS 03/07/18 05/12/18 History vitamin E 400 unit PO QAM 03/07/18 05/12/18 History carvedilol 6.25 mg PO BID 04/26/18 05/12/18 History docusate sodium [Colace] 100 mg PO BID #60 cap 04/26/18 05/12/18 Rx nitrofurantoin monohyd/m-cryst 100 mg PO BID 04/26/18 05/12/18 History oxycodone 5 mg PO Q6 PRN 04/26/18 05/12/18 History Patient History Medical History Sleep apnea (Chronic) Benign prostatic hypertrophy (Chronic) Abdominal hernia History of intestinal obstruction Right facial numbness (Resolved 09/27/13) CVA (cerebral vascular accident) (Resolved) Accidental overdose (Resolved) Near syncope (Resolved) Colitis Diarrhea (Resolved) Septic shock Dementia Depression Hyperlipidemia Hypertension Hypothyroid IRVING on CPAP Colon cancer (Resolved) Lung cancer (Resolved) Constipation (Inactive) Surgical History History of lobectomy of lung right, partial History of partial colectomy Family History Other Family history non-contributory Social History marital status: Current Living Situation: Spouse Other Information That Helps Us Care for You: No Feels Safe at Home: Yes Safety Concerns: Feels Safe At This Time Smoking Status: Former smoker Do You Dip or Chew Tobacco: No Second Hand Exposure: No Tobacco Cessation Education Requested by Patient: No Hx Alcohol Use: No Hx Substance Use: No Beliefs That Will Affect Care: None Communication Ability: Effective Physical Exam 2 Vital Signs (Past 24 Hours): Last Vital Signs Temp 36.7 C 05/13/18 15:54 Pulse 76 05/13/18 15:33 Resp 18 05/13/18 15:33 BP 112/75 05/13/18 15:33 Pulse Ox 96 05/13/18 15:33 Physical Exam: Gen.: No acute distress. Alert and oriented. HEENT: Anicteric sclera. Neck: No JVD. No bruits. Normal carotid upstrokes bilaterally. Cardiac: PMI was nondisplaced. No ventricular heave. Regular rate and rhythm. Normal S1-S2. No murmurs, rubs, or gallops. Pulmonary: Clear to auscultation bilaterally without wheezes, rales, or rhonchi. Abdomen: Soft, nontender, nondistended, with normoactive bowel sounds. No bruits noted. Extremities: 2+ radial pulses bilaterally; Allens's ok. 2+ dorsalis pedis pulses bilaterally. No pitting edema or cyanosis. No palpable cords. Psychiatric: Affect appears appropriate. Results & Data Laboratory Results Laboratory Results - last 24 hr 05/12/18 20:35 Troponin I < 0.015 Laboratory Results - last 48 hr 05/12/18 05/12/18 05/12/18 01:20 01:20 01:27 WBC 8.04 RBC 4.15 L Hgb 13.1 L POC Hgb 13.3 L Hct 40.2 L POC Hct 39 L MCV 96.9 MCH 31.6 MCHC 32.6 RDW Std Deviation 52.6 H RDW Coeff of Izabella 14.9 H Plt Count 179 MPV 12.1 H Immature Gran % (Auto) 0.2 Neut % (Auto) 65.6 Lymph % (Auto) 19.9 [place] % (Auto) 9.3 Eos % (Auto) 4.0 Baso % (Auto) 1.0 Immature Gran # (Auto) 0.02 Neut # (Auto) 5.27 Lymph # (Auto) 1.60 [place] # (Auto) 0.75 H Eos # (Auto) 0.32 Baso # (Auto) 0.08 PT INR POC D-Dimer POC Sodium 145 H Sodium 145 POC Potassium 4.0 Potassium 4.0 POC Chloride 104 Chloride 110 H Carbon Dioxide 31 POC Total CO2 28 Anion Gap 4.0 POC Anion Gap 17.0 POC BUN 17 BUN 17 Creatinine 1.22 POC Creatinine 1.1 Est Cr Clr Drug Dosing 58.7 Est GFR ( Amer) 63.6 Est GFR (Non-Af Amer) 54.9 BUN/Creatinine Ratio 14.0 Glucose 101 H POC Glucose (other) 102 H Calcium 8.4 L POC Ioniz Calcium Clemente 1.20 Phosphorus 2.9 Magnesium 1.7 L Total Bilirubin 0.5 AST 14 L ALT 16 Alkaline Phosphatase 75 Total Creatine Kinase 84 CK-MB (CK-2) 4.8 H CK/CKMB % Calc 5.7 H Troponin I < 0.015 Total Protein 6.5 Albumin 3.2 L Globulin 3.3 Albumin/Globulin Ratio 1.0 Lipase 76 TSH 1.460 05/12/18 05/12/18 05/12/18 01:29 01:30 08:38 WBC RBC Hgb POC Hgb Hct POC Hct MCV MCH MCHC RDW Std Deviation RDW Coeff of Izabella Plt Count MPV Immature Gran % (Auto) Neut % (Auto) Lymph % (Auto) [place] % (Auto) Eos % (Auto) Baso % (Auto) Immature Gran # (Auto) Neut # (Auto) Lymph # (Auto) [place] # (Auto) Eos # (Auto) Baso # (Auto) PT 11.5 INR 1.1 POC D-Dimer 301 POC Sodium Sodium POC Potassium Potassium POC Chloride Chloride Carbon Dioxide POC Total CO2 Anion Gap POC Anion Gap POC BUN BUN Creatinine POC Creatinine Est Cr Clr Drug Dosing Est GFR ( Amer) Est GFR (Non-Af Amer) BUN/Creatinine Ratio Glucose POC Glucose (other) Calcium POC Ioniz Calcium Clemente Phosphorus Magnesium Total Bilirubin AST ALT Alkaline Phosphatase Total Creatine Kinase CK-MB (CK-2) CK/CKMB % Calc Troponin I < 0.015 Total Protein Albumin Globulin Albumin/Globulin Ratio Lipase [facility] 05/12/18 05/12/18 14:57 20:35 WBC RBC Hgb POC Hgb Hct POC Hct MCV MCH MCHC RDW Std Deviation RDW Coeff of Izabella Plt Count MPV Immature Gran % (Auto) Neut % (Auto) Lymph % (Auto) [place] % (Auto) Eos % (Auto) Baso % (Auto) Immature Gran # (Auto) Neut # (Auto) Lymph # (Auto) [place] # (Auto) Eos # (Auto) Baso # (Auto) PT INR POC D-Dimer POC Sodium Sodium POC Potassium Potassium POC Chloride Chloride Carbon Dioxide POC Total CO2 Anion Gap POC Anion Gap POC BUN BUN Creatinine POC Creatinine Est Cr Clr Drug Dosing Est GFR ( Amer) Est GFR (Non-Af Amer) BUN/Creatinine Ratio Glucose POC Glucose (other) Calcium POC Ioniz Calcium Clement[place] Phosphorus Magnesium Total Bilirubin AST ALT Alkaline Phosphatase Total Creatine Kinase CK-MB (CK-2) CK/CKMB % Calc Troponin I < 0.015 < 0.015 Total Protein Albumin Globulin Albumin/Globulin Ratio Lipase TSH Diagnostic Findings ECGs personally reviewed: ECG 05/12/2018 at 6:15 a.m.: Sinus rhythm first-degree AV block 92 bpm. LBBB. ECG 05/12/2018 at 1:16 a.m.: Sinus tachycardia first-degree AV block at 101 bpm. LBBB. Nuclear stress 04/1918: Inferolateral ischemia suggested with large area of fixed defect involving the apex, anteroseptum, septum, inferoseptum, and inferior wall segments. EF 54%. Chest x-ray 05/12/2018: Left basilar atelectasis/scarring without acute process per Radiology. Chronic right hemidiaphragmatic elevation. Medications Administered Current Inpatient Medications Acetaminophen (Tylenol) 650 mg PO Q4H PRN PRN Reason: Pain or Fever Stop: 06/11/18 03:56 Aspirin (Ecotrin Ectab) [facility] Stop: 06/11/18 08:59 Last Admin: 05/13/18 12:20 Dose: 81 mg Atorvastatin Calcium (Lipitor) 20 mg PO [facility] Stop: 06/11/18 20:59 Last Admin: 05/12/18 20:46 Dose: 20 mg Bupropion HCl (Wellbutrin-Xl) 150 [facility] [place] Stop: 06/11/18 08:59 Last Admin: 05/13/18 12:19 Dose: 150 mg Carvedilol (Coreg) 6.25 mg PO BID [facility] Stop: 06/11/18 08:59 Last Admin: 05/13/18 12:20 Dose: 6.25 mg Docusate Sodium (Colace) 100 mg PO BID [facility] Stop: 06/11/18 08:59 Last Admin: 05/13/18 12:21 Dose: Not Given Donepezil HCl (Aricept) 5 mg PO [facility] Stop: 06/11/18 20:59 Last Admin: 05/12/18 20:45 Dose: 5 mg Enoxaparin Sodium (Lovenox) 40 mg SQ Q24H [facility] Stop: 06/11/18 08:59 Last Admin: 05/13/18 12:18 Dose: 40 mg Finasteride (Proscar) [facility] [place] Stop: 06/11/18 08:59 Last Admin: 05/13/18 12:20 Dose: 5 mg Gabapentin (Neurontin) 600 mg PO BID [facility] Stop: 06/11/18 08:59 Last Admin: 05/13/18 12:20 Dose: 600 mg [facility]othy[facility]ine [facility]) [facility]: 06/11/18 06:29 Last Admin: 05/13/18 06:26 Dose: 112 mcg Lisinopril (Zestril) 40 mg PO [facility] Stop: 06/11/18 08:59 Last Admin: 05/13/18 12:19 Dose: 40 mg Morphine Sulfate (Morphine Sulfate) 2 mg IV Q30M PRN PRN Reason: Chest Pain Stop: 05/26/18 03:56 Nitroglycerin (Nitrostat) 0.4 mg SL UD PRN PRN Reason: Chest Pain Stop: 06/11/18 03:56 Last Admin: 05/12/18 06:23 Dose: 0.4 mg Ondansetron HCl (Zofran) 4 mg IV Q6H PRN PRN Reason: Nausea Stop: 06/11/18 03:56 Pantoprazole Sodium (Protonix) 40 mg PO [facility] Stop: 06/11/18 08:59 Last Admin: 05/13/18 12:20 Dose: 40 mg Quetiapine Fumarate (Seroquel) 12.5 mg PO [facility] Stop: 06/11/18 20:59 Last Admin: 05/12/18 20:45 Dose: 12.5 mg Tamsulosin HCl (Flomax) 0.4 mg PO [facility] Stop: 06/11/18 20:59 Last Admin: 05/12/18 20:46 Dose: 0.4 mg Vitamin E (Vitamin E) 400 units PO [facility] Stop: 06/11/18 08:59 Last Admin: 05/13/18 12:19 Dose: 400 units _ (1) Chest pain Chest pain type: unspecified Ischemic chest pain type: Qualified Code(s): R07.9 - Chest pain, unspecified (2) Hypertension Hypertension type: essential hypertension Qualified Code(s): I10 - Essential (primary) hypertension (3) Hyperlipidemia Hyperlipidemia type: unspecified Qualified Code(s): E78.5 - Hyperlipidemia, unspecified
[2018-05-13] MEDS: QUETIAPINE FUMARATE 25 MG TABLET PO SCH (20:18)
[2018-05-13] MEDS: ATORVASTATIN 20 MG TAB PO SCH (20:19)
[2018-05-13] MEDS: TAMSULOSIN HCL 0.4 MG CAP PO SCH (20:19)
[2018-05-13] MEDS: DONEPEZIL HCL 5 MG TAB PO SCH (20:20)
[2018-05-14] MEDS: LEVOTHYROXINE SODIUM 112 MCG TABLET PO SCH (06:43)
[2018-05-14] MEDS: FINASTERIDE 5 MG TAB PO SCH (08:39)
[2018-05-14] MEDS: CARVEDILOL 6.25 MG TAB PO SCH ×2 (08:39→20:47)
[2018-05-14] MEDS: LISINOPRIL 40 MG TAB PO SCH (08:39)
[2018-05-14] MEDS: PANTOprazole 40 MG TAB PO SCH (08:39)
[2018-05-14] MEDS: GABAPENTIN 600 MG TAB PO SCH ×2 (08:39→20:47)
[2018-05-14] MEDS: TOCOPHERYL, DL-ALPHA 400 UNITS CAP PO SCH (08:39)
[2018-05-14] MEDS: BuPROPion XL 150 MG TABCR PO SCH (08:40)
[2018-05-14] MEDS: DOCUSATE SODIUM 100 MG CAP PO SCH ×2 (09:03→20:47)
[2018-05-14] MEDS: ASPIRIN 81 MG ECTAB PO SCH (09:41)
[2018-05-14] MEDS ORDERED: fentaNYL citrate 100 MCG/2 ML VIAL ONE (09:57)
[2018-05-14] MEDS ORDERED: MIDAZOLAM HCL 1 MG/ML 2ML VIAL ONE (09:57)
[2018-05-14] MEDS ORDERED: NiCARDipine HCL INJ 2.5 MG/ML 10 ML AMP ONE (09:57)
[2018-05-14] MEDS ORDERED: HEPARIN (PORCINE) 1000 UNIT/ML 10 ML (CATH LAB USE ONLY) ONE (09:57)
[2018-05-14] MEDS ORDERED: NITROGLYCERIN/D5W 100MCG/ML 20ML SYR ONE (09:58)
--- NOTE | 2018-05-14 10:03 | Pre Anesthesia Assessment ---
Date of Service May 14, 2018 Pre Sedation Assessment Vital Signs Temp Pulse Resp BP BP Pulse Ox 05/14/18 07:09 36.9 C 76 16 113/72 95 05/14/18 02:47 36.5 C 73 16 122/73 95 05/14/18 00:05 37.0 C 81 16 125/71 96 05/13/18 19:44 36.7 C 79 18 104/61 93 05/13/18 15:54 36.7 C 05/13/18 15:33 76 18 112/75 96 05/13/18 11:50 36.2 C L 78 18 145/78 H 100 Cardiovascular + regular rate Respiratory normal respiratory effort, lungs clear to auscultation Pre-Sedation Airway Assessment Smoking Status: Former smoker Mallampati Class: II ASA: ASA3 NPO Status Date of Last Intake of Fluids: 05/13/18 Time of Last Intake of Fluids: 18:00 Date of Last Intake of Solid Food: 05/13/18 Time of Last Intake of Solid Foods: 18:00 Procedure Planning Contraindications for Sedation: none Current Medications Reviewed: Yes Notes The planned sedation has been discussed with the patient. Informed Consent was obtained. I have identified the patient, determined the appropriateness of sedation and have assessed the patient immediately prior to the procedure. All medicine(s) and interventions are by my order.
--- NOTE | 2018-05-14 10:44 | Cardiac Catheterization ---
Cardiac Cath Procedure: Brief Procedure Date May 14, 2018 Pre-Procedure Diagnosis Pre-Procedure Diagnosis: Positive Stress Test AUC Score AUC Score: 8 Post-Procedure Diagnosis Post-Procedure Diagnosis: Mild CAD Procedure(s) Performed Procedure(s) Performed: Coronary Angiography and LV Angiography Book Mender Tan Loya MD Benzol Still Operator(s) Estrella Pena Estimated Blood Loss Estimated Blood Loss: < 20 ml Medication(s) Medication(s): Heparin, Lidocaine 1% and Nicardipine Preliminary Findings No obstructive CAD. Full report to follow. Recommendations Recommendations: Medical Therapy and/or Counseling Specimens Specimens: None Procedural Complication(s) None Disposition PCU
[2018-05-14] MEDS ORDERED: SODIUM CHLORIDE 0.9% 1000ML 1,000 ML IV SCH (10:45)
[2018-05-14] MEDS: ENOXAPARIN INJ 40 MG/0.4 ML SYR SQ SCH (10:58)
--- NOTE | 2018-05-14 11:08 | Cardiac Catheterization ---
Cardiac Cath Procedure Full Procedure Date May 14, 2018 Pre-Procedure Diagnosis Pre-Procedure Diagnosis: Positive Stress Test AUC Score AUC Score: 8 Post-Procedure Diagnosis Post-Procedure Diagnosis: Mild CAD and Normal Intracardiac Pressures Procedure(s) Performed Procedure(s) Performed: Coronary Angiography and LV Angiography Awning Erector Tan Loya MD Underground Utility Locator(s) Estrella Pena Estimated Blood Loss Estimated Blood Loss: < 20 ml Medication(s) Medication(s): Heparin, Lidocaine 1% and Nicardipine Summary of Findings Coronary angiography: 1. Left main coronary artery: The LMCA is without significant CAD. 2. Left anterior descending: LAD is a large caliber vessel that extends to the apex. Proximal LAD 20%. Mid LAD 20%. Distal LAD 10-20%. Large D1 with ostial to proximal 40% stenosis. Medium caliber D2 with luminal irregularities. 3. Circumflex: The circumflex is a large caliber vessel. Proximal and mid circumflex 20%. Distal circumflex continues as AV groove vessel and is smaller in caliber. Small OM1 without significant CAD. Large OM2 with lateral branches. Proximal OM2 40%. 4. Right coronary artery: The RCA is large and dominant. Proximal RCA 20%. Mid RCA 20%. Distal RCA 20-30%. PDA and PL branches without significant CAD. Left heart catheterization: 1. Left ventriculography was not performed. 2. No aortic stenosis. Peak to peak gradient across the aortic valve was 0. 3. Normal LVEDP; 6mmHg. Sedation: Sedation was not given due to reported history of adverse reaction to previous sedation. Impression: 1. Nonobstructive CAD. 2. Normal LVEDP. 3. No aortic stenosis. 4. False-positive myocardial perfusion study. Plan: 1. Risk factor modification and medical therapy for nonobstructive CAD. 2. Further evaluation of noncardiac chest pain as per primary service. Hemodynamics Rest Ao:: 118/60 Final Ao: 120/62 LV: 120/2/6 Recommendations Recommendations: Medical Therapy and/or Counseling Specimens Specimens: None Radiation Exposure (mGy) 878 mGy. Fluoro time 2.6 min. 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 Cardiac Status Clinical evaluation leading to the procedure CAD Presenation: Positive Stress Test Anginal Classification: CCS IV Heart Failure: No Cardiogenic Shock within 24 Hours: No Cardiac Arrest within 24 Hours: No Imaging Studies Past 6 Months: Yes Stress Studies Past 6 Months: Yes Standard Exercise Test: No Stress Echocardiogram: No Stress Testing w/SPECT MPI: Yes - Positive and Risk/Extent of Ischemia (large abnormality on myocardial perfusion imaging) Cardiac CTA: No Coronary Anatomy Dominant: Right Left Main (% Stenosis): Normal LAD (% Stenosis): Proximal (20%), Mid (20%) and Distal (10-20%) D1 (% Stenosis): Ostial (40%) D2 (% Stenosis): Proximal (Luminal irregularities) Circumflex (% Stenosis): Proximal (20%) and Mid (20%) OM1 (% Stenosis): Normal OM2 (% Stenosis): Proximal (40%) RCA (% Stenosis): Proximal (20%), Mid (20%) and Distal (20-30%) R PDA (% Stenosis): Normal R PL1 (% Stenosis): Normal R PL2 (% Stenosis): Normal Left Ventricular Angiography EF (%): n/a Diagnostic Physicians Name: Tan Loya MD Status: Elective Closure Device Percutaneous Entry Location: Radial Closure Device: Radial Band Recommendations: Medical Therapy and/or Counseling
--- NOTE | 2018-05-14 11:37 | Cardiology Progress Note ---
Date of Service May 14, 2018 Assessment & Plan (1) CAD (coronary artery disease): Nonobstructive CAD noted on cardiac catheterization. He does not require revascularization. Continue aspirin, statin, beta-parul therapy. Risk factor modification. (2) Abnormal nuclear stress test: Myocardial perfusion study was abnormal, likely representing false positive study given nonobstructive CAD on cardiac catheterization. No further evaluation recommended at this time in regards to his abnormal stress test. (3) Chest pain: Symptom itself was atypical and given the fact that he has no obstructive CAD noted on cardiac catheterization, chest pain now appears to be noncardiac. No further cardiology evaluation recommended at this time. (4) Hypertension: Blood pressure has been reasonably controlled. Continue current regimen. (5) Hyperlipidemia: Consider high-intensity statin therapy. Disposition: Cardiology will sign off at this time. Call with any other questions or concerns. Follow-up with PCP . Dr. Tenorio has been notified of cardiac catheterization findings. Subjective He has not had any further chest pain. He denies shortness of breath, syncope, near-syncope, palpitations, or edema. He underwent cardiac catheterization earlier today. Nonobstructive CAD was noted. He tolerated the procedure well. Procedure was done via the right radial artery. He did not receive any sedation given his history of adverse reaction to sedation. Review of systems: As above. Physical Exam 2 Vital Signs (Past 24 Hours): Last Vital Signs Temp 36.4 C L 05/14/18 11:15 Pulse 64 05/14/18 11:15 Resp 16 05/14/18 11:15 BP 122/77 05/14/18 11:15 Pulse Ox 96 05/14/18 11:15 Intake & Output 05/12/18 05/13/18 05/14/18 05/15/18 06:59 06:59 06:59 06:59 Intake Total 740 / 740 882 / 882 Output Total 301 / 301 Balance 439 / 439 881 / 881 Weight 92 kg 89.6 kg 89.4 kg Physical Exam: Gen.: No acute distress. Alert and oriented. HEENT: Anicteric sclera. Neck: No JVD. Cardiac: Regular. Normal S1-S2. No murmurs, rubs, or gallops. Pulmonary: Clear to auscultation bilaterally without wheezes, rales, or rhonchi. Abdomen: Soft, nontender, nondistended, with normoactive bowel sounds. No bruits noted. Extremities: No edema or cyanosis. Psychiatric: Affect appears appropriate. Results & Data Laboratory Results Laboratory Results - last 48 hr 05/12/18 05/12/18 14:57 20:35 Troponin I < 0.015 < 0.015 Diagnostic Findings Cardiac catheterization results reviewed. Nonobstructive CAD. Telemetry personally reviewed: No arrhythmia. Medications Administered Current Inpatient Medications Acetaminophen (Tylenol) 650 mg PO Q4H PRN PRN Reason: Pain or Fever Stop: 06/11/18 03:56 Aspirin (Ecotrin Ectab) [facility] Stop: 06/11/18 08:59 Last Admin: 05/14/18 09:41 Dose: 81 mg Atorvastatin Calcium (Lipitor) 20 mg PO HS [facility] Stop: 06/11/18 20:59 Last Admin: 05/13/18 20:19 Dose: 20 mg Bupropion HCl (Wellbutrin-Xl) 150 [facility] Stop: 06/11/18 08:59 Last Admin: 05/14/18 08:40 Dose: 150 mg Carvedilol (Coreg) 6.25 mg PO BID [facility] Stop: 06/11/18 08:59 Last Admin: 05/14/18 08:39 Dose: 6.25 mg Docusate Sodium (Colace) 100 mg PO BID [facility] Stop: 06/11/18 08:59 Last Admin: 05/14/18 09:03 Dose: Not Given Donepezil HCl (Aricept) 5 mg PO [facility] Stop: 06/11/18 20:59 Last Admin: 05/13/18 20:20 Dose: 5 mg Enoxaparin Sodium (Lovenox) 40 mg SQ Q24H [facility] Stop: 06/11/18 08:59 Last Admin: 05/14/18 10:58 Dose: 40 mg Finasteride (Proscar) 5 mg PO QAM [facility] Stop: 06/11/18 08:59 Last Admin: 05/14/18 08:39 Dose: 5 mg Gabapentin (Neurontin) 600 mg PO BID [facility] Stop: 06/11/18 08:59 Last Admin: 05/14/18 08:39 Dose: 600 mg Sodium Chloride (Nss 1000ml) 1,000 mls @ 125 mls/hr IV .Q8H [facility] Stop: 05/14/18 14:45 Levothyroxine Sodium (Synthroid) 112 mcg PO DAILYBB [facility] Stop: 06/11/18 06:29 Last Admin: 05/14/18 06:43 Dose: 112 mcg Lisinopril (Zestril) 40 mg PO QAM [facility] Stop: 06/11/18 08:59 Last Admin: 05/14/18 08:39 Dose: 40 mg Morphine Sulfate (Morphine Sulfate) 2 mg IV Q30M PRN PRN Reason: Chest Pain Stop: 05/26/18 03:56 Nitroglycerin (Nitrostat) 0.4 mg SL UD PRN PRN Reason: Chest Pain Stop: 06/11/18 03:56 Last Admin: 05/12/18 06:23 Dose: 0.4 mg Ondansetron HCl (Zofran) 4 mg IV Q6H PRN PRN Reason: Nausea Stop: 06/11/18 03:56 Pantoprazole Sodium (Protonix) 40 mg PO [facility] Stop: 06/11/18 08:59 Last Admin: 05/14/18 08:39 Dose: 40 mg Quetiapine Fumarate (Seroquel) 12.5 mg PO [facility] Stop: 06/11/18 20:59 Last Admin: 05/13/18 20:18 Dose: 12.5 mg Tamsulosin HCl (Flomax) 0.4 mg PO HS [facility] Stop: 06/11/18 20:59 Last Admin: 05/13/18 20:19 Dose: 0.4 mg Vitamin E (Vitamin E) 400 units PO [facility] Stop: 06/11/18 08:59 Last Admin: 05/14/18 08:39 Dose: 400 units _ (1) Chest pain Chest pain type: unspecified Ischemic chest pain type: Qualified Code(s): R07.9 - Chest pain, unspecified (2) Hypertension Hypertension type: essential hypertension Qualified Code(s): I10 - Essential (primary) hypertension (3) Hyperlipidemia Hyperlipidemia type: unspecified Qualified Code(s): E78.5 - Hyperlipidemia, unspecified
--- NOTE | 2018-05-14 15:14 | Hospitalist Progress Note ---
Date of Service May 14, 2018 Assessment & Plan (1) Chest pain: atypical chest pain. Troponin negative, EKG with stable LBBB. -continue ASA, Atorvastatin, Carvedilol, Lisinopril Nuclear stress test shows fixed defects with small reversible area cardiology consult perform left heart catheterization without occlusive coronary disease noted (2) Hypertension: Blood pressure remains controlled -Continue Lisinopril, Carvedilol (3) Hyperlipidemia: Consider increasing dose to 40 of atorvastatin at the time of discharge. (4) Benign prostatic hypertrophy: Asymptomatic on finasteride And tamsulosin (5) Hypothyroid: Remains taking oral Sythroid (6) Cognitive impairment: Fairly good memory while taking Aricept and Seroquel (7) IRVING on CPAP: CPAP qhS Ppx - Lovenox. Continue home Protonix Code -Full Subjective After abnormal nuclear stress test patient underwent a left heart catheterization on 05/14 with right radial wrist access. There was nonocclusive coronary disease found with no recommended changes in medical management Patient feels well after the test his wrist is only minorly uncomfortable he is able to eat has no further discomfort or symptoms of any kind Review of Systems ROS: well nourished well developed. No double vision blurry vision No problems with speech or swallowing No palpitations, chest pain or pressure No Wheezing or breathing issues No abdominal pain nausea vomiting diarrhea changes in appetite or weight No burning urine urine frequency or changes in color No focal joint pain or muscle pain No skin rashes or oral lesions No unusual bruising or bleeding No focused back pain or numbness or loss of strength No changes in memory or confusion Physical Exam 2 Vital Signs (Past 24 Hours): Last Vital Signs Temp 36.5 C 05/14/18 13:59 Pulse 66 05/14/18 13:59 Resp 16 05/14/18 13:59 BP 148/71 H 05/14/18 13:59 Pulse Ox 99 05/14/18 13:59 The patient appeared well nourished and normally developed. Vital signs as documented. Head exam is unremarkable. normocephalic, atraumatic Neck is without jugular venous distension, thyromegaly, or lymphademopathy Lungs are clear to auscultation and percussion. Cardiac exam reveals Rhythm is regular. First and second heart sounds normal. Abdominal exam reveals normal bowel sounds, no masses, no organomegaly Extremities his right wrist is dressing in place is good capillary refill distally and sensation distally. Protocol be followed to remove the closure of his radial access Neurologic exam is A&Ox3, no focal deficits, strength is equal bilateral Psychologically seems neither anxious or depressed Skin is warm Dry without bruises or lesions _ (1) Chest pain Chest pain type: unspecified Ischemic chest pain type: Qualified Code(s): R07.9 - Chest pain, unspecified (2) Hypertension Hypertension type: essential hypertension Qualified Code(s): I10 - Essential (primary) hypertension (3) Hyperlipidemia Hyperlipidemia type: unspecified Qualified Code(s): E78.5 - Hyperlipidemia, unspecified (4) Benign prostatic hypertrophy Lower urinary tract symptom presence: symptoms absent Lower urinary tract symptom detail: Qualified Code(s): N40.0 - Benign prostatic hyperplasia without lower urinary tract symptoms (5) Hypothyroid Hypothyroidism type: unspecified Qualified Code(s): E03.9 - Hypothyroidism, unspecified
[2018-05-14] MEDS: ATORVASTATIN 20 MG TAB PO SCH (20:47)
[2018-05-14] MEDS: DONEPEZIL HCL 5 MG TAB PO SCH (20:47)
[2018-05-14] MEDS: QUETIAPINE FUMARATE 25 MG TABLET PO SCH (20:49)
[2018-05-14] MEDS: TAMSULOSIN HCL 0.4 MG CAP PO SCH ×2 (22:22→22:30)
[2018-05-15] MEDS: LEVOTHYROXINE SODIUM 112 MCG TABLET PO SCH (05:54)
[2018-05-15] MEDS: ENOXAPARIN INJ 40 MG/0.4 ML SYR SQ SCH (07:42)
[2018-05-15] MEDS: LISINOPRIL 40 MG TAB PO SCH (07:42)
[2018-05-15] MEDS: TOCOPHERYL, DL-ALPHA 400 UNITS CAP PO SCH (07:42)
[2018-05-15] MEDS: BuPROPion XL 150 MG TABCR PO SCH (07:42)
[2018-05-15] MEDS: FINASTERIDE 5 MG TAB PO SCH (07:42)
[2018-05-15] MEDS: CARVEDILOL 6.25 MG TAB PO SCH (07:43)
[2018-05-15] MEDS: GABAPENTIN 600 MG TAB PO SCH (07:43)
[2018-05-15] MEDS: ASPIRIN 81 MG ECTAB PO SCH (07:43)
[2018-05-15] MEDS: PANTOprazole 40 MG TAB PO SCH (07:43)
[2018-05-15] MEDS: DOCUSATE SODIUM 100 MG CAP PO SCH (07:43)
--- NOTE | 2018-05-15 19:30 | Discharge Summary ---
Date of Service May 15, 2018 Admission HPI Per Admitting Provider patient is a pleasant 82yo male with multiple medical problems, HTN, HLP, prior CVA presenting with chest pain. Pain woke him from sleep at approximately 01: 00 - sharp and stabbing at the left nipple lasting approximately 20 seconds then resolving. Pain 10/10 in severity and "knocked the breath out of him". Patient got out of bed and was getting his shoes on when the pain reoccurred. He woke up his and told her to call 911. When EMS arrived they administered multiple doses of Nitro SL as well as Nitro spray with relief of the pain. He denies diaphoresis, palpitations, SOB, dizziess or syncope.. Patient presently chest pain free. No additional complaints at this time. ER Course: Nitro paste Principal Diagnosis Noncardiac chest pain abnormal nuclear stress test negative cardiac catheterization for acute coronary syndrome Discharge Exam Constitutional well developed and average body habitus Eyes no conjunctival abnormality and no scleral abnormality Neck normal visual inspection and trachea midline Respiratory normal respiratory effort; no respiratory distress Auscultation: lungs clear to auscultation bilaterally Cardiovascular RRR, no murmur, no edema Gastrointestinal (Abdomen) normal bowel sounds, soft, nontender, no hepatosplenomegaly Musculoskeletal no cyanosis or clubbing, extremities motor strength 5/5 Discharge Data Allergies Allergy/AdvReac Type Severity Reaction Status Date / Time lactose AdvReac Mild LACTOSE Verified 05/12/18 02:30 INTOLERANCE-GI UPSET Consultations 05/12/18 01:58 ED Decision to Admit Stat 05/13/18 17:47 Consult Cardiology Routine 05/13/18 19:34 Consult Cardiac Catheterization Routine Procedures Performed Operation Date: 05/14/18 10:00 Actual Procedures p Cath, Left with Cors and Vent - Tan Loya MD s Cineradiography w/Routine Exam - Tan Loya MD Ordered Studies 05/14/18 09:43 CL Cath Imgs for PACS use only Routine Hospital Course (1) Chest pain: atypical chest pain. Troponin negative, EKG with stable LBBB. -continue ASA, Atorvastatin, Carvedilol, Lisinopril Nuclear stress test shows fixed defects with small reversible area cardiology consult perform left heart catheterization without occlusive coronary disease noted (2) Hypertension: Blood pressure remains controlled -Continue Lisinopril, Carvedilol (3) Hyperlipidemia: Patient wishes to resume his statin dose prior to discharge to discuss further changes in his statin with his primary care provider (4) Benign prostatic hypertrophy: Asymptomatic on finasteride And tamsulosin (5) Hypothyroid: Remains taking oral Sythroid (6) Cognitive impairment: Fairly good memory while taking Aricept and Seroquel (7) IRVING on CPAP: CPAP qhS Code -Full Total Time Total Time Spent Total Time Spent (In Minutes): greater than 30 minutes were required to prepare discharge Discharge Plan Discharge Items Patient Disposition: Home - Home Health Services Reason For Visit: CHEST PAIN Discharge Diagnosis: chest pain with acute cardiac source ruled out Discharge Goals: Decrease discomfort and Diagnostic testing Activity: Resume your previous activity Non-emergency contact: Primary Care Provider Call non-emergency contact if: you have any medication questions Follow-up/Referrals: Mike Cisse MD [Primary Care Provider] - 05/22/18 1:00 pm (Please, follow up at Dr. Cisse's office with his events and promotions assistant, Jesusita Mayorga PA-C, on May 22 at 1:00 pm. *If you need to change or cancel this appointment, call the office at [phone].) Diet: Regular Addtl Provider Instructions: ACTIVITY RECOMMENDATIONS: Excess manipulation of the wrist should be avoided for the next 24-48 hours. * No lifting over 2 pounds (approximately a 1/2 gallon of milk) with the utilized arm for 24 hours. * No strenuous activity such as bowling or tennis for 3 days. * Keep the site of the procedure covered with a bandage for 24 hours. *You may shower the day after the procedure. Do not take a tub bath or submerge the puncture site in water for the next 3 days. *Do not operate any motorized equipment for 3 days. SPECIAL CARE INSTRUCTIONS: The site may be slightly bruised and sore following your procedure. Should any of the following occur, contact the DrLamont who performed your procedure. 1. Redness/inflammation, swelling, chills, or fever, or colored drainage at procedure site within 3-7 days after your procedure. 2. Coldness, discoloration, ongoing numbness, severe pain, or swelling. Expect mild tingling of hand and tenderness at the puncture site for up to three days. If this persists beyond three days, or other symptoms develop, notify the Dr. who performed your procedure. BLEEDING: If the procedure site on your wrist begins to bleed, do not panic 1. Place 1 or 2 fingers firmly just slightly above the insertion site to stop the bleeding. You may be able to feel your pulse as you hold pressure. 2. Lift your finger after 5 minutes to see if the bleeding has stopped. 3. Once the bleeding has stopped, gently wipe the wrist area clean with a bandage. * If the bleeding from your wrist does not stop after 10 minutes, or if there is a large amount of bleeding or spurting, call 911 ([address] drive yourself to the hospital). SKIN IRRITATION: * You may experience some redness and/or swelling in the area where radiation was administered. If any skin irritation occurs, please contact your family physician. FOLLOW UP VISIT: Keep any scheduled doctor appointments. Prescriptions: Continue carvedilol 6.25 mg tablet 6.25 mg PO BID RF: 0 nitrofurantoin monohyd/m-cryst 100 mg capsule 100 mg PO BID RF: 0 oxycodone 5 mg Tablet 5 mg PO Q6 PRN (Reason: Pain) RF: 0 docusate sodium [Colace] 100 mg capsule 100 mg PO BID Qty: 60 RF: 0 aspirin [Aspir-81] 81 mg Tablet,Delayed Release (Dr/Ec) 81 mg PO QAM RF: 0 atorvastatin 20 mg Tablet 20 mg PO HS RF: 0 bupropion HCl 150 mg tablet extended release 24 hr 150 mg PO QAM RF: 0 donepezil 5 mg tablet 5 mg PO HS RF: 0 finasteride 5 mg Tablet 5 mg PO QAM RF: 0 gabapentin 600 mg Tablet 600 mg PO BID RF: 0 levothyroxine 112 mcg tablet 112 mcg PO QAM RF: 0 lisinopril 40 mg Tablet 40 mg PO QAM RF: 0 pantoprazole 40 mg Tablet,Delayed Release (Dr/Ec) 40 mg PO QAM RF: 0 quetiapine 25 mg tablet 12.5 mg PO HS RF: 0 tamsulosin 0.4 mg capsule 0.4 mg PO HS RF: 0 cholecalciferol (vitamin D3) 1,000 unit Tablet 1,000 unit PO QAM RF: 0 vitamin E 400 unit Capsule 400 unit PO QAM RF: 0 Stand-Alone Forms: [facility] Discharge Orders: Discharge Order (Routine); Ordered 05/15/18 Ordered By: Allen Tenorio Admission Data Admit Date/Time: 05/13/18 18:11 Attending Provider: Allen Tenorio Admit Provider: Alyssa Gibbs Primary Care Provider: Mike Cisse Other Providers: Home,Nursing Agency ; Tan Loya ; Alyssa Gibbs Service: Medical Other Interventions: Discharge Summary Assessment (RN) Last Done: 05/15/18 12:06 DC Date/Time DO NOT enter until pt leaves facility: 05/15/18 12:25
== END 2018-05-15 12:25 | disposition home health service (06) | DRG 287 ==
LOC: ED 01:11 → 2S 01:11 → SUATTDRO 02:48 → 2S 03:12 → 4W 05-14 14:03

== ENCOUNTER 2019-03-29 18:16 | Inpatient (IN) ==
[2019-03-29] MEDS ORDERED: SODIUM CHLORIDE 0.9% 1000ML 500 ML IV ONE ×2 (18:24→20:16)
[2019-03-29 18:56] LABS: Basophils # (auto) 0.05 K/uL (0-0.2); Basophils % (auto) 0.8 %; Eosinophils # (auto) 0.22 K/uL (0-0.5); Eosinophils % (auto) 3.4 %; Hematocrit (blood only) 42.8 % (42-52); Hemoglobin 13.9 g/dL (14.0-18.0); Immature Granulocytes # (auto) 0.02 K/uL (0.00-0.02); Immature Granulocytes % (auto) 0.3 %; Lymphocytes # (auto) 1.36 K/uL (1.2-3.4); Lymphocytes % (auto) 20.9 %; Mean Corpuscular Hemoglobin 32.4 pg (25-34); Mean Corpuscular Hgb Conc 32.5 g/dL (32-36); Mean Corpuscular Volume 99.8 fL (80-100); Mean Platelet Volume 11.7 fL (7.4-10.4); Monocytes # (auto) 0.68 K/uL (0.11-0.59); Monocytes % (auto) 10.4 %; Neutrophils # (auto) 4.18 K/uL (1.4-6.5); Neutrophils % (auto) 64.2 %; Platelet Count 146 K/uL (130-400); RDW Coefficient of Variation 15.2 % (11.5-14.5); Red Blood Count 4.29 M/uL (4.7-6.1); White Blood Count 6.51 K/uL (4.8-10.8)
--- NOTE | 2019-03-29 18:56 | XRay Report ---
XR chest 1V portable CLINICAL HISTORY: weak dyspnea COMPARISON STUDY: 08/31/2018 FINDINGS: Diffuse chronic interstitial and granulomatous change. Small chronic parenchymal scar left lung base. Mild prominence of pulmonary vasculature. IMPRESSION: Pulmonary vascular congestion. Chronic granulomatous change. ACT 112: Negative or not required by law. The above report was generated using voice recognition software. It may contain grammatical, syntax or spelling errors. Electronically signed by: Darrius Brown M.D. 03/29/2019 6:54 PM
--- NOTE | 2019-03-29 19:04 | CT Scan Report ---
CT head/brain wo con CT DOSE: 691.05 mGy.cm HISTORY: Mental status change Stroke evaluation TECHNIQUE: Multiaxial CT images of the head were performed without the use of intravenous contrast. A dose lowering technique was utilized adhering to the principles of ALARA. Comparison: None. Findings: The paranasal sinuses and mastoid air cells are clear. The calvarium and skull base are int act. The ventricles and sulci are within normal limits. There is no mass, hematoma, midline shift, or acute infarct. Age-related atrophy. Mild chronic small vessel change. No acute intracranial hemorrha ge. Mild compensatory ventricular prominence. Impression: No acute intracranial abnormality. ACT 112: Negative or not required by law. The above report was generated using voice recognition software. It may contain grammatical, syntax or spelling errors. Electronically signed by: Darrius Brown M.D. 03/29/2019 7:03 PM
[2019-03-29 19:11] LABS: INR 1.2 (0.9-1.1); Partial Thromboplastin Time 28.3 Seconds (21.0-31.0); Prothrombin Time 12.2 Seconds (9.0-12.0)
[2019-03-29 19:13] LABS: Alanine Aminotransferase 17 U/L (12-78); Albumin Level 3.3 gm/dl (3.4-5.0); Aspartate Aminotransferase 13 U/L (15-37); BUN Creatinine Ratio 18.1 (10-20); Blood Urea Nitrogen 21 mg/dl (7-18); Carbon Dioxide 29 mmol/L (21-32); Chloride 108 mmol/L (98-107); Creatinine Clr Calc Pharmacy 53.6 ml/min; Est GFR (African American) 65.7; Est GFR (Non-African American) 56.7; Glucose 107 mg/dl (70-99); Magnesium 1.9 mg/dl (1.8-2.4); Sodium 143 mmol/L (136-145)
[2019-03-29 19:18] LABS: Alkaline Phosphatase 76 U/L (45-117); Bilirubin,Total 0.8 mg/dl (0.2-1); Globulin 3.2 gm/dl (2.5-4.0); Total Protein 6.5 gm/dl (6.4-8.2); Troponin I < 0.015 ng/ml (0-0.045)
--- NOTE | 2019-03-29 20:07 | Emergency Department Note ---
Entered by Laxmi Call acting as a scribe for Francisco J Ferreira MD History of Present Illness General Chief complaint: Weakness Stated complaint: DIFF AMBULATING Time Seen by Provider: 03/29/19 18:17 Source: patient Mode of arrival: EMS History of Present Illness Onset (ago): day(s) 3 Pain Consistency: + constant Quality: + aching Relieved By: + none Associated symptoms: + other (bilateral knee pain, dizziness); no chest pain, no cough, no fever/chills, no loss of appetite and no shortness of breath Treatments prior to arrival: none The patient is a 83 year old male who presents to the Emergency Room with complaints of weakness and dizziness that began 3 days ago. The patient also visited his PCP 3 days ago and was started on Lorazepam. He denies any pain, but feels weak in his knees and is having trouble walking up and down steps. He denies trauma or falls. The patient states that he does not know why he had his prior doctors appointment or why he was put on new medication. He denies chest pain, shortness of breath, loss of appetite, fever, cough, and congestion. Home Medications Home Medications Medication Instructions Recorded Confirmed Type aspirin [Aspir-81] 81 mg PO QAM 03/07/18 03/29/19 History donepezil 5 mg PO HS 03/07/18 03/29/19 History finasteride 5 mg PO QAM 03/07/18 03/29/19 History lisinopril 40 mg PO QAM 03/07/18 03/29/19 History pantoprazole 40 mg PO QAM 03/07/18 03/29/19 History vitamin E 400 unit PO QAM 03/07/18 03/29/19 History bupropion HCl 150 mg 24 hr tablet, 150 mg PO QAM #90 tab 11/03/18 03/29/19 Rx extended release levothyroxine 112 mcg tablet 112 mcg PO DAILY #90 tab 11/03/18 03/29/19 Rx carvedilol 6.25 mg tablet 6.25 mg PO BID #180 tab 11/04/18 03/29/19 Rx tamsulosin 0.4 mg capsule 0.4 mg PO HS #90 cap 11/04/18 03/29/19 Rx trospium 60 mg capsule,extended 60 mg PO DAILY #90 cap 11/04/18 03/29/19 Rx release 24 hr cholecalciferol (vitamin D3) 25 1,000 units PO DAILY tab 11/10/18 03/29/19 History mcg (1,000 unit) tablet docusate sodium 100 mg capsule 100 mg PO BID PRN cap 11/10/18 03/29/19 History lorazepam 0.5 mg tablet 0.5 mg PO TID #90 tab 03/24/19 03/29/19 Rx atorvastatin 20 mg PO QPM 03/29/19 03/29/19 History folic acid 0 mg PO DAILY 03/29/19 03/29/19 History gabapentin 600 mg PO TID 03/29/19 03/29/19 History Allergies Allergy/AdvReac Type Severity Reaction Status Date / Time lactose AdvReac Mild LACTOSE Verified 03/29/19 20:01 INTOLERANCE-GI UPSET No Known Drug Allergies Allergy . Uncoded 03/29/19 20:01 Past Med/Surg History Medical History Abdominal hernia Accidental overdose (Resolved) Benign prostatic hypertrophy (Chronic) Colitis Colon cancer (Resolved) Constipation (Inactive) CVA (cerebral vascular accident) (Resolved) Dementia Depression Diarrhea (Resolved) History of intestinal obstruction Hyperlipidemia Hypertension Hypothyroid Lung cancer (Resolved) Near syncope (Resolved) IRVING on CPAP Right facial numbness (Resolved 09/27/13) Septic shock Sleep apnea (Chronic) Surgical History History of lobectomy of lung right, partial History of partial colectomy Family History Other Family history non-contributory Social History Preferred Language: Nepali Communication Ability: Effective Cell Changer Required: No Beliefs That Will Affect Care: None marital status: Current Living Situation: Spouse Feels Safe at Home: Yes Smoking Status: Never smoker Second Hand Exposure: No ; Hx Alcohol Use: No Hx Substance Use: No Review of Systems See HPI for pertinent positives & negatives. and A total of 10 systems reviewed and were otherwise negative Physical Exam Vital Signs Vital Signs - 24 hr 03/29/19 18:25 03/29/19 19:30 03/29/19 19:45 Temperature 36.6 C Temperature Source Oral Pulse Rate - Lying Pulse Rate - Sitting Pulse Rate - Standing Pulse Rate 90 84 85 Pulse Rate from SpO2 Sensor 85 85 Respiratory Rate 20 21 15 Respiratory Effort / Characteristics Non-Labored Spontaneous Respiratory Depth Normal Respiratory Pattern Regular Blood Pressure - Lying Blood Pressure - Sitting Blood Pressure- Standing Blood Pressure 95/77 L 134/90 124/76 Blood Pressure Mean 83 104 88 Blood Pressure Position Lying Pulse Oximetry 94 97 97 Oxygen Delivery Method Room Air Room Air Room Air Sepsis Recent Fever Within 48 Hours No Sepsis New/Unexplained Change in Mental Status No Sepsis Action Taken by Nursing No Action Required 03/29/19 19:53 03/29/19 19:54 03/29/19 19:59 Temperature Temperature Source Pulse Rate - Lying 85 Pulse Rate - Sitting 92 H Pulse Rate - Standing 93 H Pulse Rate 85 91 H Pulse Rate from SpO2 Sensor 87 Respiratory Rate 15 18 Respiratory Effort / Characteristics Respiratory Depth Respiratory Pattern Blood Pressure - Lying 117/75 Blood Pressure - Sitting 133/93 Blood Pressure- Standing 111/71 Blood Pressure 117/75 133/93 Blood Pressure Mean 102 110 Blood Pressure Position Pulse Oximetry 97 Oxygen Delivery Method Room Air Sepsis Recent Fever Within 48 Hours Sepsis New/Unexplained Change in Mental Status Sepsis Action Taken by Nursing 03/29/19 20:01 Temperature Temperature Source Pulse Rate - Lying Pulse Rate - Sitting Pulse Rate - Standing Pulse Rate 86 Pulse Rate from SpO2 Sensor Respiratory Rate 15 Respiratory Effort / Characteristics Respiratory Depth Respiratory Pattern Blood Pressure - Lying Blood Pressure - Sitting Blood Pressure- Standing Blood Pressure 111/71 Blood Pressure Mean 85 Blood Pressure Position Pulse Oximetry Oxygen Delivery Method Sepsis Recent Fever Within 48 Hours Sepsis New/Unexplained Change in Mental Status Sepsis Action Taken by Nursing GENERAL: Patient is in no acute distress. HEENT: No acute trauma, normocephalic atraumatic, mucous membranes moist, no nasal congestion, no scleral icterus. NECK: No stridor, no adenopathy, no meningismus, trachea is midline. LUNGS: Clear to auscultation bilaterally, no wheeze, no rhonchi, breath sounds equal. HEART: Subtle systolic murmur. Regular rate and rhythm. ABDOMEN: Soft, nontender, bowel sounds positive, no hernias, no peritonitis. EXTREMITIES: No cyanosis or edema, full range of motion of all the joints without pain or difficulty, no signs for acute trauma. NEUROLOGIC: Awake and alert. Speech is somewhat slow, but fluent. Answers questions appropriately. No facial droop, extremity drift, or cerebellar dysfunction. SKIN: No rash, no jaundice, no diaphoresis. Course Course 1821: Past medical records reviewed. The patient was evaluated in room C09. A complete history and physical exam was performed. 2004: Orthostatic vital signs were negative. 2012: I rechecked on the patient and updated him on results. He states he still does not feel quite right, and is agreeable to staying in the hospital for observation overnight. 2024: I spoke to Dr. Santos, [facility] hospitalist, who agreed to take over care of the patient. He will stay for further evaluation. The patient verbally expressed understanding and agreement of the treatment plan. The patient will be evaluated for further treatment. Administered Medications Sodium Chloride (Nss 1000ml) 500 mls @ 999 mls/hr IV .Q31M ONE Stop: 03/29/19 20:46 Last Admin: 03/29/19 20:17 Dose: 999 mls/hr Documented by: [id number] Discontinued Medications Sodium Chloride (Nss 1000ml) 500 mls @ 999 mls/hr IV .Q31M ONE Stop: 03/29/19 18:54 Last Infusion: 03/29/19 20:01 Dose: 0 mls/hr Documented by: [id number] Admin: 03/29/19 19:27 Dose: 999 mls/hr Documented by: [id number] Medical Decision Making Differential Diagnosis Differential diagnosis includes: stroke, medication reaction, dehydration, electrolyte imbalance, UTI, anemia, dysrhythmia, CO, intracranial bleeding, and others were considered. Medical Records Attestation: I reviewed the patient's medical records. Home Medications Current Medication List: was personally reviewed by me Laboratory Data Attestation: I reviewed the patient's lab results. Result diagrams: 03/29/19 18:48 03/29/19 18:48 Lab Results 03/29/19 03/29/19 03/29/19 Range/Units 18:48 18:48 18:48 WBC 6.51 (4.8-10.8) K/uL RBC 4.29 L (4.7-6.1) M/uL Hgb 13.9 L (14.0-18.0) g/dL Hct 42.8 (42-52) % MCV 99.8 (80-100) fL MCH 32.4 (25-34) pg MCHC 32.5 (32-36) g/dL RDW Std Deviation 55.0 H (36.4-46.3) fL RDW Coeff of Izabella 15.2 H (11.5-14.5) % Plt Count 146 (130-400) K/uL MPV 11.7 H (7.4-10.4) fL Immature Gran % (Auto) 0.3 % Neut % (Auto) 64.2 % Lymph % (Auto) 20.9 % [place] % (Auto) 10.4 % Eos % (Auto) 3.4 % Baso % (Auto) 0.8 % Immature Gran # (Auto) 0.02 (0.00-0.02) K/uL Neut # (Auto) 4.18 (1.4-6.5) K/uL Lymph # (Auto) 1.36 (1.2-3.4) K/uL [place] # (Auto) 0.68 H (0.11-0.59) K/uL Eos # (Auto) 0.22 (0-0.5) K/uL Baso # (Auto) 0.05 (0-0.2) K/uL PT 12.2 H (9.0-12.0) Seconds INR 1.2 H (0.9-1.1) APTT 28.3 (21.0-31.0) Seconds PTT Ratio 1.0 Sodium 143 (136-145) mmol/L Potassium 4.0 (3.5-5.1) mmol/L Chloride 108 H (98-107) mmol/L Carbon Dioxide 29 (21-32) mmol/L Anion Gap 6.0 (3-11) BUN 21 H (7-18) mg/dl Creatinine 1.18 (0.6-1.4) mg/dl Est Cr Clr Drug Dosing 53.6 ml/min Est GFR ( Amer) 65.7 Est GFR (Non-Af Amer) 56.7 BUN/Creatinine Ratio 18.1 (10-20) Glucose 107 H (70-99) mg/dl Calcium 9.0 (8.5-10.1) mg/dl Magnesium 1.9 (1.8-2.4) mg/dl Total Bilirubin 0.8 (0.2-1) mg/dl AST 13 L (15-37) U/L ALT 17 (12-78) U/L Alkaline Phosphatase 76 (45-117) U/L Troponin I < 0.015 (0-0.045) ng/ml Total Protein 6.5 (6.4-8.2) gm/dl Albumin 3.3 L (3.4-5.0) gm/dl Globulin 3.2 (2.5-4.0) gm/dl Albumin/Globulin Ratio 1.0 (0.9-2) Imaging Data Radiologist's Impression: Radiology results as stated below per my review and the radiologist's interpretation: CT head/brain wo con CT DOSE: 691.05 mGy.cm HISTORY: Mental status change Stroke evaluation TECHNIQUE: Multiaxial CT images of the head were performed without the use of intravenous contrast. A dose lowering technique was utilized adhering to the principles of ALARA. Comparison: None. Findings: The paranasal sinuses and mastoid air cells are clear. The calvarium and skull base are intact. The ventricles and sulci are within normal limits. There is no mass, hematoma, midline shift, or acute infarct. Age-related atrophy. Mild chronic small vessel change. No acute intracranial hemorrhage. Mild compensatory ventricular prominence. Impression: No acute intracranial abnormality. ACT 112: Negative or not required by law. The above report was generated using voice recognition software. It may contain grammatical, syntax or spelling errors. Electronically signed by: Darrius Brown M.D. 03/29/2019 7:03 PM XR chest 1V portable CLINICAL HISTORY: weak dyspnea COMPARISON STUDY: 08/31/2018 FINDINGS: Diffuse chronic interstitial and granulomatous change. Small chronic parenchymal scar left lung base. Mild prominence of pulmonary vasculature. IMPRESSION: Pulmonary vascular congestion. Chronic granulomatous change. ACT 112: Negative or not required by law. The above report was generated using voice recognition software. It may contain grammatical, syntax or spelling errors. Electronically signed by: Darrius Brown M.D. 03/29/2019 6:54 PM ECG Data Attestation: I personally reviewed and interpreted this ECG as follows: Indication: + weakness Rate (beats per minute): 88 Rhythm: + sinus rhythm ECG Intervals/blocks: + First degree AV block, + Left bundle branch block and + Normal QT-c (481) ECG ST segments: no ST elevation ECG Findings: no PVCs Comparison ECG Date: from (05/14/2018) Change: no significant change Blood Pressure Blood Pressure Findings: Low blood pressure MDM Narrative There is no leukocytosis or concerning anemia. The platelet count is normal. No concerning coagulopathy. No significant electrolyte abnormality or kidney failure. No evidence for liver enzyme elevation. EKG shows a sinus rhythm with a left bundle branch block, no acute ischemia. Cardiac enzyme testing x1 is not consistent with acute cardiac injury. Chest x-ray shows some chronic findings, no acute infiltrate. Brain CT shows some atrophy, no acute bleed or mass- effect. Urinalysis result is still pending. Orthostatic vital signs were negative. On exam, the patient was not febrile or toxic. He was slow to respond to questions but did speak fluently. No focal neurologic deficits. His blood pressure was borderline low upon arrival. The patient received IV saline, he was given 2/500 cc saline boluses. His blood pressure improved. The cause for the patient's weakness, stumbling and increased confusion is unclear although, it appears the patient may have just been started on Ativan and this medication could be causing his symptoms. Dehydration is a possibility I suppose. Stroke seems possible but less likely. He is clearly not a TPA candidate as he has had symptoms for 3 days. The patient is trying to provide a urine sample as infection/UTI could be causing his symptoms as well. I spoke to the patient, his family has been by. At this point, hospitalization/observation is warranted. I did speak to case management. The on-call hospitalist was consulted. Impression & Plan Change in mental status, Weakness, Hypotension Discharge Plan Visit Data Chief Complaint: Weakness Stated Complaint: DIFF AMBULATING ED Provider: Francisco J Ferreira Discharge Problem: Change in mental status, Weakness, Hypotension Forms Stand Alone Forms: My [facility] [employer] Prescriptions Prescriptions: No Action bupropion HCl 150 mg tablet extended release 24 hr 150 mg PO QAM Qty: 90 RF: 3 levothyroxine [Euthyrox] 112 mcg tablet 112 mcg PO DAILY Qty: 90 RF: 3 trospium 60 mg capsule,extended release 24hr 60 mg PO DAILY Qty: 90 RF: 3 tamsulosin 0.4 mg capsule 0.4 mg PO HS Qty: 90 RF: 3 carvedilol 6.25 mg tablet 6.25 mg PO BID Qty: 180 RF: 3 lorazepam 0.5 mg tablet 0.5 mg PO TID Qty: 90 RF: 5 docusate sodium 100 mg capsule 100 mg PO BID PRN (Reason: Constipation) RF: 0 cholecalciferol (vitamin D3) 1,000 unit (25 mcg) tablet 1,000 units PO DAILY RF: 0 aspirin [Aspir-81] 81 mg Tablet,Delayed Release (Dr/Ec) 81 mg PO QAM RF: 0 donepezil 5 mg tablet 5 mg PO HS RF: 0 finasteride 5 mg Tablet 5 mg PO QAM RF: 0 lisinopril 40 mg Tablet 40 mg PO QAM RF: 0 pantoprazole 40 mg Tablet,Delayed Release (Dr/Ec) 40 mg PO QAM RF: 0 vitamin E 400 unit Capsule 400 unit PO QAM RF: 0 gabapentin 600 mg tablet 600 mg PO TID RF: 0 folic acid 1 mg Tablet 0 mg PO DAILY RF: 0 atorvastatin 20 mg tablet 20 mg PO QPM RF: 0 Discharge Problem: Change in mental status Qualifiers: Altered mental status type: disorientation Qualified Code(s): R41.0 - Disorientation, unspecified Hypotension Qualifiers: Hypotension type: unspecified hypotension type Qualified Code(s): I95.9 - Hypotension, unspecified The scribe's documentation has been prepared under my direction and personally reviewed by me in its entirety. I confirm that the note above accurately reflects all work, treatment, procedures, and medical decision making performed by me.
--- NOTE | 2019-03-29 20:52 | History & Physical Report ---
Date of Service March 29, 2019 Assessment & Plan (1) Change in mental status: Obs tele I am awaiting urine sample to look for UTI. However, in absence of infectious source, it is likely that the addition of scheduled lorazepam has caused these inadvertent side effects. I will hold lorazepam at this time. In that he has only been on for 3 days, I am not concerned for withdrawal effects. I considered MRI of brain, but at this point I do not feel patient would be compliant with lying still. If his symptoms do not improve this could be revisited. If U/A show signs of infection we will treat. (2) Disequilibrium: PT/OT (3) Acid reflux disease: Continue pantoprazole. (4) CAD (coronary artery disease): continue carvedilol, aspirin (5) IRVING on CPAP: He does not know his settings. I will have standard setting placed for overnight CPAP (6) Hypothyroid: continue levothyroxine (7) Hyperlipidemia: Continue atorvastatin (8) Hypertension: continue lisinopril (9) Cognitive impairment: This was due to hx CVA continue donepezil. (10) BPH (benign prostatic hyperplasia): continue finasteride, tamsulosin, and trospium. History of Present Illness 83 y/o male presented to the ED with report of 3 day history of generalized weakness manifested as difficulty with walking (normally uses a cane) and balance. In addition EMS reported that his felt he was confused and more disoriented than his baseline. The patient tells me that he does not know why he is here. That family though he was having difficulty descending the stairs. He tells me that he was not having any more problems than usual. It appears the patient has had these symptoms over the previous 3 days and of interest, he was apparently started on Ativan TID by PCP 3 days prior. He declines having chest pain, SOB, cough, F/C, urinary symptoms, slurred speech, facial droop, unilateral weakness abdominal pain, N/V/D, constipation, or headache. Primary Care Provider: Mike Cisse MD Allergies Allergy/AdvReac Type Severity Reaction Status Date / Time lactose AdvReac Mild LACTOSE Verified 03/29/19 20:01 INTOLERANCE-GI UPSET No Known Drug Allergies Allergy . Uncoded 03/29/19 20:01 Home Medications Home Medications Medication Instructions Recorded Confirmed Type aspirin [Aspir-81] 81 mg PO QAM 03/07/18 03/29/19 History donepezil 5 mg PO HS 03/07/18 03/29/19 History finasteride 5 mg PO QAM 03/07/18 03/29/19 History lisinopril 40 mg PO QAM 03/07/18 03/29/19 History pantoprazole 40 mg PO QAM 03/07/18 03/29/19 History vitamin E 400 unit PO QAM 03/07/18 03/29/19 History bupropion HCl 150 mg 24 hr tablet, 150 mg PO QAM #90 tab 11/03/18 03/29/19 Rx extended release levothyroxine 112 mcg tablet 112 mcg PO DAILY #90 tab 11/03/18 03/29/19 Rx carvedilol 6.25 mg tablet 6.25 mg PO BID #180 tab 11/04/18 03/29/19 Rx tamsulosin 0.4 mg capsule 0.4 mg PO HS #90 cap 11/04/18 03/29/19 Rx trospium 60 mg capsule,extended 60 mg PO DAILY #90 cap 11/04/18 03/29/19 Rx release 24 hr cholecalciferol (vitamin D3) 25 1,000 units PO DAILY tab 11/10/18 03/29/19 History mcg (1,000 unit) tablet docusate sodium 100 mg capsule 100 mg PO BID PRN cap 11/10/18 03/29/19 History lorazepam 0.5 mg tablet 0.5 mg PO TID #90 tab 03/24/19 03/29/19 Rx atorvastatin 20 mg PO QPM 03/29/19 03/29/19 History folic acid 0 mg PO DAILY 03/29/19 03/29/19 History gabapentin 600 mg PO TID 03/29/19 03/29/19 History Past Med/Surg History Medical History Abdominal hernia Accidental overdose (Resolved) Benign prostatic hypertrophy (Chronic) Colitis Colon cancer (Resolved) Constipation (Inactive) CVA (cerebral vascular accident) (Resolved) Dementia Depression Diarrhea (Resolved) History of intestinal obstruction Hyperlipidemia Hypertension Hypothyroid Lung cancer (Resolved) Near syncope (Resolved) IRVING on CPAP Right facial numbness (Resolved 09/27/13) Septic shock Sleep apnea (Chronic) Surgical History History of lobectomy of lung right, partial History of partial colectomy Family History Other Family history non-contributory Social History Preferred Language: Luxembourgish Communication Ability: Effective Marketing Mgr Required: No Beliefs That Will Affect Care: None marital status: Current Living Situation: Spouse Feels Safe at Home: Yes Smoking Status: Never smoker Second Hand Exposure: No ; Hx Alcohol Use: No Hx Substance Use: No Review of Systems Review of Systems: All systems reviewed & are unremarkable except as noted in HPI & below Physical Exam Physical Exam: General- adult male, NAD, but is mildly confused. Head- atraumatic Eyes- PERRL, EOMI, anicteric ENT- oropharynx clear Neck- supple, no JVD, no adenopathy, no thyromegaly. Lungs- CTA b/l no R/R/W Heart- regular rhythm; no murmur, no gallop, no rub appreciated Abdomen- normal bowel sounds, soft, nontender. Extremities- no pretibial edema, no calf tenderness; peripheral pulses intact Neuro- alert, oriented x [address] He had month correct; PERRL, EOMI; fingerprint expert II-XII grossly intact, non-focal. Skin- warm & dry Results & Data Vital Signs (Past 12 Hours) Vital Signs Temp Pulse Resp BP Pulse Ox 03/29/19 20:01 86 15 111/71 03/29/19 19:59 91 H 18 133/93 03/29/19 19:53 85 15 117/75 97 03/29/19 19:45 85 15 124/76 97 03/29/19 19:30 84 21 134/90 97 03/29/19 18:25 36.6 C 90 20 95/77 L 94 Laboratory Results Laboratory Results WBC 6.51 K/uL (4.8-10.8) 03/29/19 18:48 RBC 4.29 M/uL (4.7-6.1) L 03/29/19 18:48 Hgb 13.9 g/dL (14.0-18.0) L 03/29/19 18:48 Hct 42.8 % (42-52) 03/29/19 18:48 MCV 99.8 fL (80-100) 03/29/19 18:48 MCH 32.4 pg (25-34) 03/29/19 18:48 MCHC 32.5 g/dL (32-36) 03/29/19 18:48 RDW Std Deviation 55.0 fL (36.4-46.3) H 03/29/19 18:48 RDW Coeff of Izabella 15.2 % (11.5-14.5) H 03/29/19 18:48 Plt Count 146 K/uL (130-400) 03/29/19 18:48 MPV 11.7 fL (7.4-10.4) H 03/29/19 18:48 Immature Gran % (Auto) 0.3 % 03/29/19 18:48 Neut % (Auto) 64.2 % 03/29/19 18:48 Lymph % (Auto) 20.9 % 03/29/19 18:48 Frontier % (Auto) 10.4 % 03/29/19 18:48 Eos % (Auto) 3.4 % 03/29/19 18:48 Baso % (Auto) 0.8 % 03/29/19 18:48 Immature Gran # (Auto) 0.02 K/uL (0.00-0.02) 03/29/19 18:48 Neut # (Auto) 4.18 K/uL (1.4-6.5) 03/29/19 18:48 Lymph # (Auto) 1.36 K/uL (1.2-3.4) 03/29/19 18:48 Frontier # (Auto) 0.68 K/uL (0.11-0.59) H 03/29/19 18:48 Eos # (Auto) 0.22 K/uL (0-0.5) 03/29/19 18:48 Baso # (Auto) 0.05 K/uL (0-0.2) 03/29/19 18:48 PT 12.2 Seconds (9.0-12.0) H 03/29/19 18:48 INR 1.2 (0.9-1.1) H 03/29/19 18:48 APTT 28.3 Seconds (21.0-31.0) 03/29/19 18:48 PTT Ratio 1.0 03/29/19 18:48 Sodium 143 mmol/L (136-145) 03/29/19 18:48 Potassium 4.0 mmol/L (3.5-5.1) 03/29/19 18:48 Chloride 108 mmol/L (98-107) H 03/29/19 18:48 Carbon Dioxide 29 mmol/L (21-32) 03/29/19 18:48 Anion Gap 6.0 (3-11) 03/29/19 18:48 BUN 21 mg/dl (7-18) H 03/29/19 18:48 Creatinine 1.18 mg/dl (0.6-1.4) 03/29/19 18:48 Est Cr Clr Drug Dosing 53.6 ml/min 03/29/19 18:48 Est GFR ( Amer) 65.7 03/29/19 18:48 Est GFR (Non-Af Amer) 56.7 03/29/19 18:48 BUN/Creatinine Ratio 18.1 (10-20) 03/29/19 18:48 Glucose 107 mg/dl (70-99) H 03/29/19 18:48 Calcium 9.0 mg/dl (8.5-10.1) 03/29/19 18:48 Magnesium 1.9 mg/dl (1.8-2.4) 03/29/19 18:48 Total Bilirubin 0.8 mg/dl (0.2-1) 03/29/19 18:48 AST 13 U/L (15-37) L 03/29/19 18:48 ALT 17 U/L (12-78) 03/29/19 18:48 Alkaline Phosphatase 76 U/L (45-117) 03/29/19 18:48 Troponin I < 0.015 ng/ml (0-0.045) 03/29/19 18:48 Total Protein 6.5 gm/dl (6.4-8.2) 03/29/19 18:48 Albumin 3.3 gm/dl (3.4-5.0) L 03/29/19 18:48 Globulin 3.2 gm/dl (2.5-4.0) 03/29/19 18:48 Albumin/Globulin Ratio 1.0 (0.9-2) 03/29/19 18:48 Diagnostic Findings [place], [place] [phone] CT Scan Report Patient: SHANIQUE STORM Date: 03/29/19 MR#: [id number] Acct ID:[id number]: Date: 1935ity Zip: [place] [address] Age: 83Location: ED Sex: M Room/Bed: Att Phy:Diagnosis: DIFF AMBULATING Liz Phy: Mike Cisse, MDService Date: 03/29/19 Fam Phy:Interpreting Phy: Darrius Brown MD Admit Phy: Ordering Phy: Francisco J Ferreira M.D. cc: ~ CT head/brain wo con CT DOSE: 691.05 mGy.cm HISTORY: Mental status change Stroke evaluation TECHNIQUE: Multiaxial CT images of the head were performed without the use of intravenous contrast. A dose lowering technique was utilized adhering to the principles of ALARA. Comparison: None. Findings: The paranasal sinuses and mastoid air cells are clear. The calvarium and skull base are intact. The ventricles and sulci are within normal limits. There is no mass, hematoma, midline shift, or acute infarct. Age-related atrophy. Mild chronic small vessel change. No acute intracranial hemorrhage. Mild compensatory ventricular prominence. Impression: No acute intracranial abnormality. ACT 112: Negative or not required by law. The above report was generated using voice recognition software. It may contain grammatical, syntax or spelling errors. Electronically signed by: Darrius Brown M.D. 03/29/2019 7:03 PM Dictated: 03/29/191900 Transcribed: 03/29/191900 Code Status & VTE Plan VTE Prophylaxis Plan VTE Prophylaxis will be ordered: Yes PG Care Time/CCT Total # of Minutes Spent Total Time Spent: 55 Total Time Spent with Patient: Total time spent is greater than 50% in coordination of care (as documented) at patient's floor/unit and/or counseling patient: (1) Change in mental status Altered mental status type: disorientation Qualified Code(s): R41.0 - Diso rientation, unspecified (2) Hypothyroid Hypothyroidism type: unspecified Qualified Code(s): E03.9 - Hypothyroidism, unspecified (3) Hyperlipidemia Hyperlipidemia type: unspecified Qualified Code(s): E78.5 - Hyperlipidemia, unspecified (4) Hypertension Hypertension type: essential hypertension Qualified Code(s): I10 - Essential (primary) hypertension
[2019-03-29 22:02] LABS: Appearance Urine Clear (Clear); Bilirubin Urine Negative (Negative); Blood Urine Negative (Negative); Color Urine Yellow; Glucose Urine UA Negative (Negative); Ketones Urine Negative (Negative); Leukocyte Esterase Urine Negative (Negative); Nitrite Urine Negative (Negative); Protein Urine Negative (Negative); Specific Gravity Urine 1.019 (1.000-1.030); Urobilinogen Urine Negative (Negative); pH Urine 5.5 (4.5-7.5)
[2019-03-29 22:54] LABS: Amphetamines+Metham, Urine Neg (Neg); Barbiturates, Urine Neg (Neg); Benzodiazepine, Urine Neg (Neg); Cocaine, Urine Neg (Neg); MDMA (Ecstacy), Urine Pos (Neg); Methadone, Urine Neg (Neg); Opiate, Urine Neg (Neg); Phencyclidine, Urine Neg (Neg)
[2019-03-30] MEDS ORDERED: ACETAMINOPHEN 325 MG TAB PO PRN (00:04)
[2019-03-30] MEDS ORDERED: ONDANSETRON INJ 2 MG/ML 2 ML VIAL IV PRN (00:04)
[2019-03-30] MEDS: ATORVASTATIN 20 MG TAB PO SCH ×2 (01:56→20:39)
[2019-03-30] MEDS: LACTATED RINGER'S 1,000 ML IV SCH ×3 (01:57→21:13)
[2019-03-30] MEDS: DONEPEZIL HCL 5 MG TAB PO SCH ×2 (01:57→20:39)
[2019-03-30] MEDS: TAMSULOSIN HCL 0.4 MG CAP PO SCH ×2 (01:57→20:40)
[2019-03-30] MEDS: carvediloL 6.25 MG TAB PO SCH ×3 (01:57→20:39)
[2019-03-30] MEDS: GABAPENTIN 600 MG TAB PO SCH ×4 (02:23→20:40)
[2019-03-30] MEDS: LEVOTHYROXINE SODIUM 112 MCG TABLET PO SCH (05:30)
[2019-03-30 06:45] LABS: Hematocrit (blood only) 41.2 % (42-52); Hemoglobin 13.2 g/dL (14.0-18.0); Mean Corpuscular Hemoglobin 31.9 pg (25-34); Mean Corpuscular Volume 99.5 fL (80-100); Mean Platelet Volume 11.6 fL (7.4-10.4); Platelet Count 131 K/uL (130-400); RDW Standard Deviation 54.7 fL (36.4-46.3); Red Blood Count 4.14 M/uL (4.7-6.1); White Blood Count 4.91 K/uL (4.8-10.8)
[2019-03-30 07:24] LABS: BUN Creatinine Ratio 17.7 (10-20); Calcium 8.7 mg/dl (8.5-10.1); Creatinine Clr Calc Pharmacy 58.6 ml/min; Est GFR (African American) 73.2; Est GFR (Non-African American) 63.1; Potassium 4.2 mmol/L (3.5-5.1)
[2019-03-30] MEDS: ENOXAPARIN INJ 40 MG/0.4 ML SYR SQ SCH (08:52)
[2019-03-30] MEDS: FINASTERIDE 5 MG TAB PO SCH (08:53)
[2019-03-30] MEDS: PANTOprazole 40 MG TAB PO SCH (08:54)
[2019-03-30] MEDS: BuPROPion XL 150 MG TABCR PO SCH (08:54)
[2019-03-30] MEDS: lisinopriL 40 MG TAB PO SCH (08:54)
[2019-03-30] MEDS: TOCOPHERYL, DL-ALPHA 400 UNITS CAP PO SCH (08:54)
[2019-03-30] MEDS: CHOLECALCIFEROL 1,000 UNITS TAB PO SCH (08:54)
[2019-03-30] MEDS: ASPIRIN 81 MG ECTAB PO SCH (08:54)
[2019-03-30] MEDS: FOLIC ACID 1 MG TAB PO SCH (08:55)
--- NOTE | 2019-03-30 14:56 | Electrocardiogram Report ---
Test Reason : Blood Pressure : / mmHG Vent. Rate : 088 BPM Atrial Rate : 088 BPM P-R Int : 232 ms QRS Dur : 130 ms QT Int : 398 ms P-R-T Axes : 064 -14 121 degrees QTc Int : 481 ms Sinus rhythm with 1st degree A-V block Left bundle branch block Abnormal ECG When compared with ECG of 14-MAY-2018 11:19, No significant change was found Confirmed by Lebron Humphrey ([id number]) on 03/30/2019 2:56:24 PM Referred By: REFERRED SELF Confirmed By:Lebron Humphrey
--- NOTE | 2019-03-30 15:34 | Hospitalist Progress Note ---
Date of Service March 30, 2019 Assessment & Plan (1) Change in mental status: Likely due to Ativan. reported he was at his baseline by 03/30; however, his baseline is significant dementia; not knowing time or place at times. Cannot follow the TV while watching. - Hold benzo - Start low-dose Haldol PRN - Aware this is med has black-box warning; however, reports she has at times felt in danger when he becomes agitated. This will only be used in case of danger to self or others. (2) Cognitive impairment: This was due to hx CVA and early dementia per . - Continue donepezil & bupropion (3) Disequilibrium: PT/OT evaluated: - OT - Discharge to rehab; PT - Home - CM following (4) Acid reflux disease: Continue pantoprazole. (5) CAD (coronary artery disease): No chest pain reported this admission. - Continued carvedilol, aspirin, statin (6) Hypertension: BP good today. - Continue lisinopril (7) IRVING on CPAP: He does not know his settings. - Hospital CPAP (8) Hypothyroid: TSH was 1.5 in 04/2018. - Continue levothyroxine (9) BPH (benign prostatic hyperplasia): No LUTS today. - Continue finasteride, tamsulosin, and trospium. (10) DVT prophylaxis: Lovenox Subjective Reports no issues at present. Reports no fevers/chills, chest pain, shortness of breath, abdominal pain, nausea, or vomiting. Not sure why he can't go home. Physical Exam Constitutional: WD/WN, vitals as above Eyes: EOM intact bilaterally; no conjunctival abnormality ENMT: external ear and nose normal, oropharynx normal Neck: trachea midline, no thyromegaly normal visual inspection Respiratory: normal respiratory effort, lungs clear to auscultation no respiratory distress Cardiovascular: RRR, no murmur, no edema Gastrointestinal (Abdomen): Inspection/Auscultation: abdomen normal to insp ection; abdomen not distended Musculoskeletal: no cyanosis or clubbing, extremities motor strength 5/5 Skin: no rashes, warm and dry Neurologic: moves all extremities and awake Psychiatric: Orientation: alert, oriented to person and cooperative; + not oriented to place and + not oriented to time Results & Data Vital Signs (Past 12 Hours) Vital Signs Temp Pulse Pulse Resp BP Pulse Ox 03/30/19 11:36 36.4 C L 60 18 136/83 98 03/30/19 07:48 59 L 03/30/19 07:45 36.7 C 63 18 147/83 H 98 03/30/19 04:00 36.8 C 67 18 124/70 95 PG Care Time/CCT Total # of Minutes Spent Total Time Spent with Patient: Total time spent is greater than 50% in coordination of care (as documented) at patient's floor/unit and/or counseling patient: (1) Change in mental status Altered mental status type: disorientation Qualified Code(s): R41.0 - Disorientation, unspecified (2) Hypothyroid Hypothyroidism type: unspecified Qualified Code(s): E03.9 - Hypothyroidism, unspecified (3) Hypertension Hypertension type: essential hypertension Qualified Code(s): I10 - Essential (primary) hypertension
[2019-03-31] MEDS: LEVOTHYROXINE SODIUM 112 MCG TABLET PO SCH (06:18)
[2019-03-31] MEDS: LACTATED RINGER'S 1,000 ML IV SCH (06:18)
[2019-03-31] MEDS: carvediloL 6.25 MG TAB PO SCH ×2 (07:52→20:07)
[2019-03-31] MEDS: GABAPENTIN 600 MG TAB PO SCH ×3 (07:52→20:08)
[2019-03-31] MEDS: FINASTERIDE 5 MG TAB PO SCH (07:53)
[2019-03-31] MEDS: CHOLECALCIFEROL 1,000 UNITS TAB PO SCH (07:53)
[2019-03-31] MEDS: lisinopriL 40 MG TAB PO SCH (07:53)
[2019-03-31] MEDS: BuPROPion XL 150 MG TABCR PO SCH (07:53)
[2019-03-31] MEDS: PANTOprazole 40 MG TAB PO SCH (07:53)
[2019-03-31] MEDS: FOLIC ACID 1 MG TAB PO SCH (07:54)
[2019-03-31] MEDS: ASPIRIN 81 MG ECTAB PO SCH (07:54)
[2019-03-31] MEDS: TOCOPHERYL, DL-ALPHA 400 UNITS CAP PO SCH (07:55)
[2019-03-31] MEDS: ENOXAPARIN INJ 40 MG/0.4 ML SYR SQ SCH (07:55)
--- NOTE | 2019-03-31 13:24 | Hospitalist Progress Note ---
Date of Service March 31, 2019 Assessment & Plan (1) Change in mental status: Likely due to Ativan. reported he was at his baseline by 03/30; however, his baseline is significant dementia; not knowing time or place at times. Cannot follow the TV while watching. - Hold benzo - Started low-dose Haldol PRN - Aware this is med has black-box warning; however, reports she has at times felt in danger when he becomes agitated. This will only be used in case of danger to self or others. - As of 03/31, has not needed any doses. Today, he is very worried about his , but otherwise no concerns for himself. (2) Cognitive impairment: This was due to hx CVA and early dementia per . - Continue donepezil & bupropion (3) Disequilibrium: PT/OT evaluated: - OT - Discharge to rehab; PT - Home - CM following -> Will go home with home health tomorrow. (4) Acid reflux disease: Continue pantoprazole. (5) CAD (coronary artery disease): No chest pain reported this admission. - Continued carvedilol, aspirin, statin, ACEi (6) Hypertension: BP good today. - Continue lisinopril (7) IRVING on CPAP: He does not know his settings. - Hospital CPAP (8) Hypothyroid: TSH was 1.5 in 04/2018. - Continue levothyroxine (9) BPH (benign prostatic hyperplasia): No LUTS today. - Continue finasteride, tamsulosin, and trospium. (10) DVT prophylaxis: Lucio Subjective Feels like he is doing great. No acute complaints. Reports no fevers/chills, chest pain, shortness of breath, abdominal pain, nausea, or vomiting. Physical Exam Constitutional: WD/WN, vitals as above Eyes: EOM intact bilaterally; no conjunctival abnormality ENMT: external ear and nose normal, oropharynx normal Neck: trachea midline, no thyromegaly normal visual inspection Respiratory: normal respiratory effort, lungs clear to auscultation no respiratory distress Cardiovascular: RRR, no murmur, no edema Gastrointestinal (Abdomen): Inspection/Auscultation: abdomen normal to inspection; abdomen not distended Musculoskeletal: no cyanosis or clubbing, extremities motor strength 5/5 Skin: no rashes, warm and dry Neurologic: moves all extremities and awake Psychiatric: Orientation: alert, oriented to person and cooperative; + not oriented to place and + not oriented to time Results & Data Vital Signs (Past 12 Hours) Vital Signs Temp Pulse Pulse Resp BP Pulse Ox 03/31/19 11:41 36.3 C L 72 20 139/85 91 03/31/19 07:43 36.4 C L 62 20 123/71 96 03/31/19 07:17 62 03/31/19 03:34 36.4 C L 67 18 142/94 H 95 PG Care Time/CCT Total # of Minutes Spent Total Time Spent with Patient: Total time spent is greater than 50% in coordination of care (as documented) at patient's floor/unit and/or counseling patient: (1) Change in mental status Altered mental status type: disorientation Qualified Code(s): R41.0 - Disorientation, unspecified (2) Hypertension Hypertension type: essential hypertension Qualified Code(s): I10 - Essential (primary) hypertension (3) Hypothyroid Hypothyroidism type: unspecified Qualified Code(s): E03.9 - Hypothyroidism, unspecified
[2019-03-31] MEDS: DONEPEZIL HCL 5 MG TAB PO SCH (20:07)
[2019-03-31] MEDS: ATORVASTATIN 20 MG TAB PO SCH (20:07)
[2019-03-31] MEDS: TAMSULOSIN HCL 0.4 MG CAP PO SCH (20:08)
[2019-04-01] MEDS: LEVOTHYROXINE SODIUM 112 MCG TABLET PO SCH (05:57)
[2019-04-01] MEDS: PANTOprazole 40 MG TAB PO SCH (08:13)
[2019-04-01] MEDS: GABAPENTIN 600 MG TAB PO SCH ×2 (08:13→13:26)
[2019-04-01] MEDS: TOCOPHERYL, DL-ALPHA 400 UNITS CAP PO SCH (08:13)
[2019-04-01] MEDS: carvediloL 6.25 MG TAB PO SCH (08:13)
[2019-04-01] MEDS: BuPROPion XL 150 MG TABCR PO SCH (08:13)
[2019-04-01] MEDS: lisinopriL 40 MG TAB PO SCH (08:13)
[2019-04-01] MEDS: ASPIRIN 81 MG ECTAB PO SCH (08:13)
[2019-04-01] MEDS: CHOLECALCIFEROL 1,000 UNITS TAB PO SCH (08:14)
[2019-04-01] MEDS: ENOXAPARIN INJ 40 MG/0.4 ML SYR SQ SCH (08:14)
[2019-04-01] MEDS: FINASTERIDE 5 MG TAB PO SCH (08:14)
[2019-04-01] MEDS: FOLIC ACID 1 MG TAB PO SCH (08:15)
[2019-04-01] MEDS ORDERED: INFLUENZA Vaccine HIGH DOSE 65+yrs 0.5 mL Syr IM ONE (13:00)
--- NOTE | 2019-04-01 18:36 | Discharge Summary ---
Date of Service April 01, 2019 Principal Diagnosis Toxic encephalopathy due to Ativan Discharge Exam Constitutional WD/WN, vitals as above Eyes EOM intact bilaterally; no conjunctival abnormality ENMT external ear and nose normal, oropharynx normal Neck trachea midline, no thyromegaly normal visual inspection Respiratory normal respiratory effort, lungs clear to auscultation no respiratory distress Cardiovascular RRR, no murmur, no edema Gastrointestinal (Abdomen) Inspection/Auscultation: abdomen normal to inspection; abdomen not distended Musculoskeletal no cyanosis or clubbing, extremities motor strength 5/5 Skin no rashes, warm and dry Neurologic moves all extremities and awake Psychiatric Orientation: alert, oriented to person and cooperative; + not oriented to place and + not oriented to time Discharge Data Allergies Allergy/AdvReac Type Severity Reaction Status Date / Time No Known Drug Allergies Allergy Unknown Verified 03/31/19 11:43 lactose AdvReac Mild LACTOSE Verified 03/29/19 20:01 INTOLERANCE-GI UPSET Consultations 03/29/19 20:16 ED Decision to Admit Stat Ordered Studies 03/29/19 18:24 CT head/brain wo con Stat Hospital Course (1) Change in mental status: Toxic encephalopathy due to Ativan. reported he was at his baseline by 03/30; however, his baseline is significant dementia; not knowing time or place at times. Cannot follow the TV while watching. - Discharged with his Ativan as PRN with recommendation to only use it as sparingly as possible. (2) Cognitive impairment: This was due to hx CVA and early dementia per . - Continue donepezil & bupropion (3) Disequilibrium: PT/OT evaluated: - OT - Discharge to rehab; PT - Home - CM following -> Will go home with home health with lots of supervision. (4) Acid reflux disease: Continue pantoprazole. (5) CAD (coronary artery disease): No chest pain reported this admission. - Continued carvedilol, aspirin, statin, ACEi (6) Hypertension: BP good today. - Continue lisinopril (7) IRVING on CPAP: He does not know his settings. - Hospital CPAP (8) Hypothyroid: TSH was 1.5 in 04/2018. - Continue levothyroxine (9) BPH (benign prostatic hyperplasia): No LUTS today. - Continue finasteride, tamsulosin, and trospium. (10) DVT prophylaxis: Lovenox Total Time Total Time Spent Total Time Spent (In Minutes): 35 Discharge Plan Discharge Items Patient Disposition: Home - Home Health Services Reason For Visit: CONFUSION AND DYSEQUILIBRIUM Discharge Diagnosis: Ativan-related confusion and trouble walking Activity: Resume your previous activity Non-emergency contact: Primary Care Provider Call non-emergency contact if: your symptoms worsen and your temperature is above 101 Follow-up/Referrals: Mike Cisse MD [Primary Care Provider] - Diet: Regular Addtl Attending Provider Instructions: Mr. Thompson was admitted for confusion and trouble walking. This was likely related to being on Ativan for confusion and agitation at home due to his dementia. There is likely baseline dementia here as well which is causing most of the issue. The issue for Mr. Thompson is that he will potentially have episodes of agitation with his dementia. The Ativan can be used for this (especially if there is concern that he may become upset or even violent), but it should be used sparingly as it has a known side effect of causing drowsiness, difficulty with gait, and can even conversely cause more confusion. Mr. Thompson should have 24/ care given his significant risk of falls and his ongoing dementia and confusion. Pending Studies at Discharge: No Stand-Alone Forms: My [facility] Tipp24, Smoking Cessation Medications and DC Order Prescriptions: Continued bupropion HCl 150 mg tablet extended release 24 hr 150 mg PO QAM Qty: 90 RF: 3 levothyroxine [Euthyrox] 112 mcg tablet 112 mcg PO DAILY Qty: 90 RF: 3 trospium 60 mg capsule,extended release 24hr 60 mg PO DAILY Qty: 90 RF: 3 tamsulosin 0.4 mg capsule 0.4 mg PO HS Qty: 90 RF: 3 carvedilol 6.25 mg tablet 6.25 mg PO BID Qty: 180 RF: 3 docusate sodium 100 mg capsule 100 mg PO BID PRN (Reason: Constipation) RF: 0 cholecalciferol (vitamin D3) 1,000 unit (25 mcg) tablet 1,000 units PO DAILY RF: 0 aspirin [Aspir-81] 81 mg Tablet,Delayed Release (Dr/Ec) 81 mg PO QAM RF: 0 donepezil 5 mg tablet 5 mg PO HS RF: 0 finasteride 5 mg Tablet 5 mg PO QAM RF: 0 lisinopril 40 mg Tablet 40 mg PO QAM RF: 0 pantoprazole 40 mg Tablet,Delayed Release (Dr/Ec) 40 mg PO QAM RF: 0 vitamin E 400 unit Capsule 400 unit PO QAM RF: 0 gabapentin 600 mg tablet 600 mg PO TID RF: 0 folic acid 1 mg Tablet 0 mg PO DAILY RF: 0 atorvastatin 20 mg tablet 20 mg PO QPM RF: 0 Changed lorazepam 0.5 mg tablet 0.5 mg PO TID PRN (Reason: Agitation) Qty: 90 RF: 5 Discharge Orders: Discharge Order (Routine); Ordered 04/01/19 Ordered By: Brendan Farfan Admission Data Admit Date/Time: 03/31/19 13:20 Attending Provider: Brendan Farfan Admit Provider: Kris Santos Primary Care Provider: Mike Cisse Other Providers: Brendan Farfan ; [facility] ; [facility] Other Interventions: Discharge Summary Assessment (RN) Last Done: 04/01/19 12:57 DC Date/Time DO NOT enter until pt leaves facility: 04/01/19 14:25
[2019-04-03 11:19] LABS: MDA negative; MDEA negative; MDMA (Ecstasy) Urine, Confirm negative
== END 2019-04-01 14:25 | disposition home health service (06) | DRG 93 ==
LOC: 2W 18:16 → ED 18:16 → SUATTDRO 20:50 → 2W 23:11